=== PATIENT | male | born 1955 | race African-American/Black ===

== ENCOUNTER 2017-01-04 09:20 | Inpatient (IN) | payer OTHER ==
[~2017-01-04] VITALS: Ht 182.9 cm; Wt 76.7 kg
[2017-01-04] MEDS ORDERED: Midazolam 2mg/2ml Inj ONE (09:31)
--- NOTE | 2017-01-04 09:33 | Emergency Room Report ---
History of Present Illness General Chief Complaint: Chest Pain Source: Patient, Medical Record, EMS Present Illness HPI 61[facility]" and palpitations, HR >150. Patient himself denies chest pain, SOB, abd pain, palpitations. has no complaints. PMhx: seizures, chronic respiratory failure s/p trach, HO CVA s/p craniotony, ventriculosotomy, HTN CXR/from yesterday, 01/03 CXR with bibasilar atelectasis Labs, 11/23 No leuks. WBC 8 Allergies: Coded Allergies: No Known Allergies (Unverified , 01/04/17) Patient History Past Medical History: other - see hpi Past Surgical History: other - Trach/PEG, shunt Pertinent Family History: none Social History: Denies: alcohol use, drug use, smoking Immunizations: UTD Reviewed Nursing Documentation: PMH: Agreed, PSxH: Agreed Nursing Documentation-PMH Hx Cardiac Problems: Yes Hx Pacemaker: No - brain surgery Hx Neurological Problems: Yes Hx Cerebrovascular Accident: Yes Hx Seizures: Yes Review of Systems All Other Systems: negative except mentioned in HPI Physical Exam Vital Signs Date Time Temp Pulse Resp B/P Pulse Ox O2 Delivery O2 Flow Rate FiO2 01/04/17 09:12 99.5 151 20 118/80 98 Trach Collar 6.0 Sp02 EP Interpretation: reviewed, abnormal General Appearance: normal inspection, well appearing, no apparent distress, alert, GCS 15, non-toxic, Chronically Ill Head: normocephalic, atraumatic Eyes: bilateral eye EOMI, bilateral eye PERRL ENT: normal ENT inspection, hearing grossly normal, normal voice Neck: normal inspection, full range of motion, supple, no bony tend, other, tracheotomy - Trach in place; no air leak. No mucous plugs. Trach collar at baseline. 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 No response to electricity Converted to sinus tach after adenosine 6mg and 12mg Labs: Elevated Leuks 38K. Elevated LFTs. CXR: no obvious lobar PNA Will do CTAP to eval for tatum/appy CC time includes review of labs, significant amount of paperwork from SNF, d/w hospitalist Dr Marin Cardioversion Cardioversion: Consent: Emergent Indication: SVT Type: Synchonis Response: Sinus Attempts: One Patient Tolerated: Well Complications: None Medical Decision Making Diagnostic Impression: Primary Impression: Tachycardia Additional Impressions: SVT (supraventricular tachycardia) Sepsis Qualified Codes: A41.9 - Sepsis, unspecified organism Cholecystitis ER Course 1) SVT 160 Improved to sinus tach 120 after electrical cardioversion and adenosine X2 2) Sepsis Leuks 38K. Elevated LFTS Source? CXR no PNA CT with GB wall thickening, edema. ?stones Blood Cx pending Empiric Abx already given Endorsed to Dr Marin for KAY at 1244pm Consulted General Surgery at 1244pm as well EKG Diagnostic Results Rhythm: NSR ST Segments: no acute changes ASA given to the pt in ED: No Rhythm Strip Diag. Results EP Interpretation: yes Rate: 125 Rhythm: NSR, no PVC's, no ectopy Chest X-Ray Diagnostic Results EP Interpretation: Yes Findings: no consolidation, no effusion, no acute cardiopulmonary disease Number of Views: 1 Last Vital Signs Date Time Temp Pulse Resp B/P Pulse Ox O2 Delivery O2 Flow Rate FiO2 01/04/17 09:12 99.5 151 20 118/80 98 Trach Collar 6.0 Status: improved Disposition: ADMITTED INPATIENT Condition: Critical MARIAN LINCOLN M.D. Jan 04, 2017 09:33
[2017-01-04] MEDS ORDERED: Adenosine 6mg/2ml Inj ONE ×5 (09:41→10:01)
[2017-01-04] MEDS ORDERED: Midazolam 2mg/2ml Inj IVP ONE (09:45)
[2017-01-04 09:52] LABS: MEAN CORPUSCULAR HEMOGLOBIN 29.2 PG (27.0-31.0); MEAN CORPUSCULAR HGB CONC 32.8 G/DL (32.0-36.0); MEAN CORPUSCULAR VOLUME 89 FL (80-99); MEAN PLATELET VOLUME 8.2 FL (6.5-10.1); PLATELET COUNT 230 K/UL (150-450); RED BLOOD COUNT 4.89 M/UL (4.70-6.10)
[2017-01-04 10:07] LABS: TROPONIN I < 0.30 ng/mL (<=0.30)
[2017-01-04 10:09] LABS: ALANINE AMINOTRANSFERASE 180 U/L (3-41); ALBUMIN/GLOBULIN RATIO 0.5 (1.0-2.7); ANION GAP 17 (5-15); ASPARTATE AMINO TRANSFERASE 229 U/L (5-40); CALCIUM 10.1 mg/dL (8.6-10.2); CARBON DIOXIDE 27 mEQ/L (20-30); CHLORIDE 95 mEQ/L (98-107); CREATININE 1.1 mg/dL (0.7-1.2); GLOMERULAR FILTRATION RATE > 60 mL/min (>60); HEMOLYSIS 0; POTASSIUM 4.3 mEQ/L (3.4-4.9); SODIUM 139 mEQ/L (135-145); TOTAL PROTEIN 10.1 g/dL (6.6-8.7)
[2017-01-04 10:10] LABS: WHITE BLOOD COUNT 37.8 K/UL (4.8-10.8)
[2017-01-04] MEDS ORDERED: Adenosine 6mg/2ml Inj IVP ONE ×2 (10:15)
[2017-01-04 10:18] LABS: BAND NEUTROPHILS % (MANUAL) 1 % (0-8); BASOPHILS % (MANUAL) 0 % (0-2); EOSINOPHILS % (MANUAL) 0 % (0-3); LYMPHOCYTES % (MANUAL) 4 % (20-45); NEUTROPHILS % (MANUAL) 86 % (45-75); PLATELET ESTIMATE ADEQUATE; PLATELET MORPHOLOGY NORMAL; TOTAL CELLS COUNTED 100
[2017-01-04 10:19] LABS: CKMB < 1.5 ng/mL (< 6.7)
[2017-01-04] MEDS ORDERED: Zosyn 3.375gm inj ONE (10:25)
[2017-01-04 10:30] LABS: BILIRUBIN,DIRECT 3.9 mg/dL (0.1-0.3)
[2017-01-04] MEDS ORDERED: Vancomycin 1.5gm/D5W 300ml 325 ML IVPB ONE (10:30)
[2017-01-04] MEDS ORDERED: Piperacillin/Tazobactam 3.375 GM in NS 110 ML IVPB ONE (10:30)
[2017-01-04] MEDS ORDERED: AMBIEN5 MG ORAL (10:39)
[2017-01-04] MEDS ORDERED: ACETAMINOPHEN325 M1 GT (10:39)
[2017-01-04] MEDS ORDERED: BENADRYL A12.5 MG/5 GT (10:39)
[2017-01-04] MEDS ORDERED: ALBUTEROL2.5 MG/3 M INH (10:39)
[2017-01-04] MEDS ORDERED: OMEPRAZOLE40 M1 GT (10:39)
[2017-01-04] MEDS ORDERED: VITAMIN C500 M1 GT ×2 (10:41→17:33)
[2017-01-04] MEDS ORDERED: COLACE100 MG GT (10:41)
--- NOTE | 2017-01-04 11:11 | Diagnostic Imaging Report ---
Indications: Chest pain Technique: Portable AP chest Findings: Comparison: None Tracheostomy tube in place. Defibrillator patch overlies lower left hemithorax. Linear density right lung base. Left lung clear. Heart size, pulmonary vasculature within normal limits. Aortic arch calcified and mildly elongated. Otherwise, no abnormal mediastinal widening. No pleural abnormality. Fixation hardware right side of mandible. No acute Focal skeletal abnormality identified. IMPRESSION: Subsegmental atelectasis right lung base No other evidence of acute cardiopulmonary disease Aortosclerosis Tracheostomy Prior ORIF right mandible
[2017-01-04 11:55] VITALS: BP 118/80
--- NOTE | 2017-01-04 12:52 | Diagnostic Imaging Report ---
Indications: Abdominal pain Technique: Continuous helical CT imaging of the abdomen and pelvis was performed with automatic exposure control following administration of oral contrast administered via percutaneous gastrostomy tube and intravenous nonionic iodine contrast, on a Siemens sensation [address] scanner. Axial, coronal, and sagittal images were reconstructed at 5 mm slice thickness. CTDI volume(s): 17 mGy Total DLP: 895 mGy-cm Findings: Comparison: None Oral contrast is passed throughout the gastrointestinal tract to the level of the ascending colon. Percutaneous gastrostomy tube in stomach. Stomach, small bowel nondilated. Appendix unremarkable. Right-sided colon moderately distended without abrupt transition. Remainder of colon nondistended. Multiple air-fluid levels throughout colon. Segment of distal descending/proximal sigmoid colon collapsed, limiting evaluation. And rectum mildly distended by feces. No obvious mural thickening, adjacent inflammatory stranding, extraluminal gas or fluid collections are demonstrated. The gallbladder is distended and demonstrates mural thickening/edema. Small nodular foci of increased attenuation are present along or adjacent to the gallbladder wall near its base. Extra mural fluid versus intramural edema fundus. Bile pancreatic ducts not dilated. Multiple small nodular calcifications in the spleen. Circumscribed low-attenuation foci in both renal cortices. Scattered arterial mural calcifications without obvious flow-limiting stenosis or occlusion. Diffuse mural thickening of urinary bladder. Prostate, seminal vesicles absent. Multiple surgical clips in pelvis. Remainder visualized pelvic anatomy demonstrates no other obvious acute abnormality. Irregular pleural-based linear and patchy consolidative opacities in the dependent portions both lung bases, right greater than left. Disc space narrowing with marginal osteophyte formation, vacuum phenomenon lower lumbar spine. IMPRESSION: Unremarkable appendix--no evidence of acute appendicitis Multiple colonic air-fluid levels with proximal distention compatible with diarrhea. Consider underlying enteritis. No evidence of overt colitis. Distended gallbladder with apparent mural thickening, possible adjacent fluid. Cholecystitis must be considered. Small nodular foci along gallbladder wall may represent small intraluminal stones, polyps, or hyperplastic cholecystosis. Ultrasound recommended for further evaluation. Diffuse thickening of urinary bladder wall--underdistention versus hypertrophy or cystitis Previous radical prostatectomy Splenic old granulomatous disease Bilateral renal cortical cysts Arteriosclerosis Degenerative spondylosis Pulmonary bibasal subsegmental atelectasis. Superimposed focal pneumonia, particularly in the right lung base, cannot be excluded.
[2017-01-04] MEDS ORDERED: Morphine Sulfate 2mg/ml Inj IVP ONE (13:15)
--- NOTE | 2017-01-04 16:23 | Diagnostic Imaging Report ---
Indications: Abdominal pain, elevated liver function tests abnormal gallbladder on CT scan, leukocytosis of 30,000, Technique: 6.1 mCi 99 M technetium-Choletec were administered intravenously. Immediate serial planar imaging of the abdomen was performed in anterior projection for a duration of 60 minutes. Findings: Comparison: CT abdomen pelvis earlier today Hepatic parenchymal uptake of radiotracer is prompt and homogeneous. There is no discernible excretion of radioisotope into the bile ducts for 60 minutes. IMPRESSION: Findings compatible with acute hepatocellular failure versus acute bile duct obstruction. As there is no evidence of the latter are poorly CT scan, the former is highly favored.. Examination nondiagnostic for cystic duct obstruction/cholecystitis. Findings discussed with Dr. Hameed, consulting surgeon, by telephone at time of this dictation
[2017-01-04 17:00] VITALS: BP 140/82
[2017-01-04] MEDS ORDERED: Acetaminophen 650mg/20.3ml GT PRN (17:15)
[2017-01-04] MEDS ORDERED: Mylanta II UD 30ml ORAL PRN (17:15)
[2017-01-04] MEDS ORDERED: DULCOLAX10 MG RC (17:25)
[2017-01-04] MEDS ORDERED: KEPPRA LIQ100 MG/1 M GT (17:26)
[2017-01-04] MEDS ORDERED: OMEPRAZOLE10 M1 GT (17:30)
[2017-01-04] MEDS ORDERED: PROMOD946 ML GT (17:32)
[2017-01-04] MEDS ORDERED: ZINC50 M1 GT (17:35)
--- NOTE | 2017-01-04 17:42 | General Progress Note ---
Progress Note Progress Note pt seen and examined, ct, us, hida reviewed with radiologist. 61 yo AA gentleman admitted with leukocytosis and jaundice. CT showed distdended gallbladder with somewhat thcickened stones. No ducrtal dilatation or pericholeckystic fluid HIDA showed kuptake in lever but no excretion into the bile ducts strongly suggesting liver parenchymal disease rather that acute cholecystitis. US show Vd stones and sludge. pt statu post tracheostomy, not on vent. awake alert, responding appropriately NAD ABD soft, no gurading rebound. negative Guevara's sign. G tube in place Labs Test 01/04/17 09:28 White Blood Count 37.8 K/UL (4.8-10.8) Red Blood Count 4.89 M/UL (4.70-6.10) Hemoglobin 14.3 G/DL (14.2-18.0) Hematocrit 43.5 % (42.0-52.0) Mean Corpuscular Volume 89 FL (80-99) Mean Corpuscular Hemoglobin 29.2 PG (27.0-31.0) Mean Corpuscular Hemoglobin Concent 32.8 G/DL (32.0-36.0) Red Cell Distribution Width 13.0 % (11.6-14.8) Platelet Count 230 K/UL (150-450) Mean Platelet Volume 8.2 FL (6.5-10.1) Neutrophils (%) (Auto) % (45.0-75.0) Lymphocytes (%) (Auto) % (20.0-45.0) Monocytes (%) (Auto) % (1.0-10.0) Eosinophils (%) (Auto) % (0.0-3.0) Basophils (%) (Auto) % (0.0-2.0) Differential Total Cells Counted 100 Neutrophils % (Manual) 86 % (45-75) Lymphocytes % (Manual) 4 % (20-45) Monocytes % (Manual) 9 % (1-10) Eosinophils % (Manual) 0 % (0-3) Basophils % (Manual) 0 % (0-2) Band Neutrophils 1 % (0-8) Platelet Estimate Adequate Platelet Morphology Normal Red Blood Cell Morphology Normal Sodium Level 139 mEQ/L (135-145) Potassium Level 4.3 mEQ/L (3.4-4.9) Chloride Level 95 mEQ/L (98-107) Carbon Dioxide Level 27 mEQ/L (20-30) Anion Gap 17 (5-15) Blood Urea Nitrogen 23 mg/dL (7-23) Creatinine 1.1 mg/dL (0.7-1.2) Estimat Glomerular Filtration Rate > 60 mL/min (>60) Glucose Level 158 mg/dL (74-106) Calcium Level 10.1 mg/dL (8.6-10.2) Total Bilirubin 4.6 mg/dL (0.0-1.2) Direct Bilirubin 3.9 mg/dL (0.1-0.3) Aspartate Amino Transf (AST/SGOT) 229 U/L (5-40) Alanine Aminotransferase (ALT/SGPT) 180 U/L (3-41) Alkaline Phosphatase 205 U/L (40-129) Total Creatine Kinase 42 U/L (38-174) Creatine Kinase MB < 1.5 ng/mL (< 6.7) Creatine Kinase MB Relative Index Troponin I < 0.30 ng/mL (<=0.30) Total Protein 10.1 g/dL (6.6-8.7) Albumin 3.7 g/dL (3.5-5.2) Globulin 6.4 g/dL Albumin/Globulin Ratio 0.5 (1.0-2.7) At this point problem appears to be primarily a problen with the liver rather thatn gall bladder disease. Rec GI consult IV antibioticsa repeat labs incl lfts keep NPo will follow closely message left to FRANCK Ness Jan 04, 2017 17:42
[2017-01-04] MEDS ORDERED: Zolpidem 5mg tab ORAL PRN (17:45)
[2017-01-04] MEDS ORDERED: DiphenhydrAMINE 25mg/10ml Elixir GT PRN (17:45)
[2017-01-04] MEDS ORDERED: Albuterol ud Inhalation HHN PRN (17:45)
[2017-01-04 20:57] VITALS: BP 99/44
[2017-01-04] MEDS: levETIRAcetam 500mg/5ml Liquid GT SCH (21:50)
[2017-01-04] MEDS: Piperacillin/Tazobactam 3.375 GM in D5W 110 ML IVPB SCH (21:51)
[2017-01-04] MEDS: Heparin 5000 units/ml inj SUBQ SCH (21:53)
[2017-01-04] MEDS: Vancomycin 1250mg/D5W 275ml IVPB SCH ×2 (23:04)
[2017-01-05] VITALS: BP 90/64
[2017-01-05 04:00] VITALS: BP 101/67
[2017-01-05 05:19] LABS: MEAN CORPUSCULAR HEMOGLOBIN 30.1 PG (27.0-31.0); MEAN CORPUSCULAR HGB CONC 33.8 G/DL (32.0-36.0); MEAN CORPUSCULAR VOLUME 89 FL (80-99); MEAN PLATELET VOLUME 8.1 FL (6.5-10.1); PLATELET COUNT 152 K/UL (150-450); RED BLOOD COUNT 3.94 M/UL (4.70-6.10); RED CELL DISTRIBUTION WIDTH 12.9 % (11.6-14.8)
[2017-01-05 05:33] LABS: WHITE BLOOD COUNT 27.3 K/UL (4.8-10.8)
[2017-01-05 05:41] LABS: TROPONIN I < 0.30 ng/mL (<=0.30)
[2017-01-05 05:42] LABS: ALANINE AMINOTRANSFERASE 96 U/L (3-41); ALBUMIN/GLOBULIN RATIO 0.6 (1.0-2.7); ANION GAP 13 (5-15); ASPARTATE AMINO TRANSFERASE 103 U/L (5-40); CARBON DIOXIDE 27 mEQ/L (20-30); CHLORIDE 99 mEQ/L (98-107); GLOMERULAR FILTRATION RATE > 60 mL/min (>60); HEMOLYSIS 0; POTASSIUM 3.5 mEQ/L (3.4-4.9); SODIUM 139 mEQ/L (135-145); TOTAL PROTEIN 7.4 g/dL (6.6-8.7)
[2017-01-05 05:43] LABS: INR 1.3 (0.9-1.1); PROTHROMBIN TIME 13.8 SEC (9.30-11.50)
[2017-01-05 06:25] LABS: BILIRUBIN,DIRECT 6.7 mg/dL (0.1-0.3)
[2017-01-05] MEDS: Piperacillin/Tazobactam 3.375 GM in D5W 110 ML IVPB SCH ×3 (06:26→21:30)
[2017-01-05 08:00] VITALS: BP 102/61
--- NOTE | 2017-01-05 08:10 | General Progress Note ---
Progress Note Progress Note Pt seen yesterday for eval of abdominal pain. Imaging studies showed distended gallbladder on CT but no ductal dilatation or pericholecystic fluid. Ultrasound did confirm sludge and stones (verbal report by raadiologist.) Hida scan showed radioactive dye uptake into liver but no excretion into duct, most consistant with hepatocellular disease. Pt today is awake alert. He is nonverbal 2o to trach but nods, and shakes his head appropriately. has some diffuse abd pain, not localizing. he is passing flatus and has had a bm this AM Vital Sign - Last 24 Hours 01/04/17 01/04/17 01/04/17 01/04/17 09:12 10:16 10:17 11:54 Temp 99.5 Pulse 151 132 125 125 Resp 20 20 B/P 118/80 Pulse Ox 98 O2 Delivery Trach Collar Trach Collar O2 Flow Rate 6.0 6.0 01/04/17 01/04/17 01/04/17 01/04/17 11:55 13:57 17:00 17:00 Temp 97.4 Resp 20 24 B/P 118/80 125/80 Pulse Ox 98 100 97 O2 Delivery Trach Collar Trach Collar Trach Collar Trach Collar O2 Flow Rate 6.0 10.0 FiO2 45 45 01/04/17 01/04/17 01/04/17 01/04/17 17:00 17:47 18:19 19:06 Temp 102.0 99.5 Pulse 135 Resp 20 B/P 140/82 140/82 Pulse Ox 98 100 O2 Delivery Trach Collar T-piece FiO2 45 45 01/04/17 01/04/17 01/04/17 01/04/17 19:06 20:00 20:57 23:16 Temp 98.6 Pulse 110 93 Resp 20 B/P 99/44 90/57 Pulse Ox 97 O2 Delivery T-piece T-piece O2 Flow Rate 10.0 FiO2 45 35 35 01/04/17 01/05/17 01/05/17 01/05/17 23:36 00:00 00:00 00:00 Temp 98.0 Pulse 97 96 91 Resp 18 B/P 90/64 Pulse Ox 100 O2 Delivery T-piece FiO2 35 35 01/05/17 01/05/17 01/05/17 01/05/17 00:50 00:50 04:00 04:00 Temp 99.3 Pulse 103 105 Resp 20 B/P 101/67 Pulse Ox 100 100 O2 Delivery T-piece T-piece T-piece O2 Flow Rate 10.0 FiO2 45 45 35 01/05/17 01/05/17 01/05/17 06:30 07:08 07:09 Pulse 105 B/P 101/67 Pulse Ox 100 O2 Delivery T-piece T-piece O2 Flow Rate 10.0 FiO2 35 35 Intake and Output 01/04/17 01/04/17 01/05/17 15:00 23:00 07:00 Intake Total 327.5 ml 1222.500 ml Output Total 20 ml 400 ml Balance -20 ml 327.5 ml 822.500 ml Labs Test 01/04/17 09:28 01/05/17 04:30 White Blood Count 37.8 K/UL (4.8-10.8) 27.3 K/UL (4.8-10.8) Red Blood Count 4.89 M/UL (4.70-6.10) 3.94 M/UL (4.70-6.10) Hemoglobin 14.3 G/DL (14.2-18.0) 11.8 G/DL (14.2-18.0) Hematocrit 43.5 % (42.0-52.0) 35.0 % (42.0-52.0) Mean Corpuscular Volume 89 FL (80-99) 89 FL (80-99) Mean Corpuscular Hemoglobin 29.2 PG (27.0-31.0) 30.1 PG (27.0-31.0) Mean Corpuscular Hemoglobin Concent 32.8 G/DL (32.0-36.0) 33.8 G/DL (32.0-36.0) Red Cell Distribution Width 13.0 % (11.6-14.8) 12.9 % (11.6-14.8) Platelet Count 230 K/UL (150-450) 152 K/UL (150-450) Mean Platelet Volume 8.2 FL (6.5-10.1) 8.1 FL (6.5-10.1) Neutrophils (%) (Auto) % (45.0-75.0) % (45.0-75.0) Lymphocytes (%) (Auto) % (20.0-45.0) % (20.0-45.0) Monocytes (%) (Auto) % (1.0-10.0) % (1.0-10.0) Eosinophils (%) (Auto) % (0.0-3.0) % (0.0-3.0) Basophils (%) (Auto) % (0.0-2.0) % (0.0-2.0) Differential Total Cells Counted 100 Neutrophils % (Manual) 86 % (45-75) Lymphocytes % (Manual) 4 % (20-45) Monocytes % (Manual) 9 % (1-10) Eosinophils % (Manual) 0 % (0-3) Basophils % (Manual) 0 % (0-2) Band Neutrophils 1 % (0-8) Platelet Estimate Adequate Platelet Morphology Normal Red Blood Cell Morphology Normal Sodium Level 139 mEQ/L (135-145) 139 mEQ/L (135-145) Potassium Level 4.3 mEQ/L (3.4-4.9) 3.5 mEQ/L (3.4-4.9) Chloride Level 95 mEQ/L (98-107) 99 mEQ/L (98-107) Carbon Dioxide Level 27 mEQ/L (20-30) 27 mEQ/L (20-30) Anion Gap 17 (5-15) 13 (5-15) Blood Urea Nitrogen 23 mg/dL (7-23) 20 mg/dL (7-23) Creatinine 1.1 mg/dL (0.7-1.2) 1.0 mg/dL (0.7-1.2) Estimat Glomerular Filtration Rate > 60 mL/min (>60) > 60 mL/min (>60) Glucose Level 158 mg/dL (74-106) 110 mg/dL (74-106) Calcium Level 10.1 mg/dL (8.6-10.2) 9.0 mg/dL (8.6-10.2) Total Bilirubin 4.6 mg/dL (0.0-1.2) 7.7 mg/dL (0.0-1.2) Direct Bilirubin 3.9 mg/dL (0.1-0.3) 6.7 mg/dL (0.1-0.3) Aspartate Amino Transf (AST/SGOT) 229 U/L (5-40) 103 U/L (5-40) Alanine Aminotransferase (ALT/SGPT) 180 U/L (3-41) 96 U/L (3-41) Alkaline Phosphatase 205 U/L (40-129) 155 U/L (40-129) Total Creatine Kinase 42 U/L (38-174) Creatine Kinase MB < 1.5 ng/mL (< 6.7) Creatine Kinase MB Relative Index Troponin I < 0.30 ng/mL (<=0.30) < 0.30 ng/mL (<=0.30) Total Protein 10.1 g/dL (6.6-8.7) 7.4 g/dL (6.6-8.7) Albumin 3.7 g/dL (3.5-5.2) 3.0 g/dL (3.5-5.2) Globulin 6.4 g/dL 4.4 g/dL Albumin/Globulin Ratio 0.5 (1.0-2.7) 0.6 (1.0-2.7) Prothrombin Time 13.8 SEC (9.30-11.50) Prothromb Time International Ratio 1.3 (0.9-1.1) impression Findings most consistant with acute liver injury. DOUBT acute cholecystitis. plan await GI evaluation serial labs and exams FRANCK FONTANEZ Jan 05, 2017 08:10
[2017-01-05] MEDS: levETIRAcetam 500mg/5ml Liquid GT SCH ×2 (08:25→21:28)
[2017-01-05] MEDS: Docusate 100mg tablet GT SCH (08:25)
[2017-01-05] MEDS: Ascorbic Acid 500mg tab GT SCH (08:25)
[2017-01-05] MEDS: Zinc Sulfate 220mg cap GT SCH (08:25)
[2017-01-05] MEDS: Heparin 5000 units/ml inj SUBQ SCH ×2 (08:26→21:29)
[2017-01-05 08:54] LABS: BAND NEUTROPHILS % (MANUAL) 0 % (0-8); BASOPHILS % (MANUAL) 0 % (0-2); EOSINOPHILS % (MANUAL) 0 % (0-3); LYMPHOCYTES % (MANUAL) 5 % (20-45); NEUTROPHILS % (MANUAL) 83 % (45-75); PLATELET ESTIMATE ADEQUATE; TOTAL CELLS COUNTED 100
[2017-01-05 08:55] LABS: HYPOCHROMASIA 1+; PLATELET MORPHOLOGY NORMAL
[2017-01-05 09:55] LABS: OTHERS PATHOLOGIST COMMENT
[2017-01-05] MEDS: Vancomycin 1250mg/D5W 275ml IVPB SCH ×4 (11:20→23:00)
[2017-01-05 12:00] VITALS: BP 105/69
--- NOTE | 2017-01-05 15:09 | General Progress Note ---
Assessment/Plan Assessment/Plan Assessment - Leukocytosis, Jaundice -- ? cholecystitis vs, cholangitis, less likely hepatocellular disease - Resp failure Recommendations - check hepatitis serologies - check MRCP - check CMV/HSV/ EBV - abx - follow LFT - hold ASA and Ambien - close surgical f/u Subjective Allergies: Coded Allergies: No Known Allergies (Unverified , 01/04/17) Objective Last 24 Hour Vital Signs Date Time Temp Pulse Resp B/P Pulse Ox O2 Delivery O2 Flow Rate FiO2 01/05/17 12:59 T-piece 10.0 35 01/05/17 12:58 100 T-piece 35 01/05/17 12:00 98.1 90 20 105/69 99 T-piece 10.0 35 01/05/17 12:00 90 01/05/17 11:23 90 105/65 01/05/17 08:00 96 01/05/17 08:00 98.2 92 16 102/61 99 T-piece 10.0 35 01/05/17 07:09 T-piece 10.0 35 01/05/17 07:08 100 T-piece 35 01/05/17 06:30 105 101/67 01/05/17 04:00 99.3 105 20 101/67 100 T-piece 35 01/05/17 04:00 103 01/05/17 00:50 T-piece 10.0 45 01/05/17 00:50 100 T-piece 45 01/05/17 00:00 91 01/05/17 00:00 98.0 96 18 90/64 100 T-piece 35 01/05/17 00:00 35 01/04/17 23:36 97 01/04/17 23:16 93 90/57 01/04/17 20:57 98.6 110 20 99/44 97 T-piece 35 01/04/17 20:00 35 01/04/17 19:06 T-piece 10.0 45 01/04/17 19:06 100 T-piece 45 01/04/17 18:19 99.5 01/04/17 17:47 135 140/82 01/04/17 17:00 102.0 20 140/82 98 Trach Collar 45 01/04/17 17:00 97 Trach Collar 45 01/04/17 17:00 Trach Collar 10.0 45 Intake and Output 01/04/17 01/05/17 19:00 07:00 Intake Total 1550.000 ml Output Total 20 ml 400 ml Balance -20 ml 1150.000 ml Intake Oral 100 ml IV Total 1450.000 ml Output Urine Total 20 ml 400 ml # Bowel Movements 1 2 Laboratory Tests 01/05/17 04:30: White Blood Count 27.3*H, Red Blood Count 3.94L, Hemoglobin 11.8L, Hematocrit 35.0L, Mean Corpuscular Volume 89, Mean Corpuscular Hemoglobin 30.1, Mean Corpuscular Hemoglobin Concent 33.8, Red Cell Distribution Width 12.9, Platelet Count 152, Mean Platelet Volume 8.1, Neutrophils (%) (Auto) , Lymphocytes (%) ( Auto) , Monocytes (%) (Auto) , Eosinophils (%) (Auto) , Basophils (%) (Auto) , Differential Total Cells Counted 100, Neutrophils % (Manual) 83H, Lymphocytes % (Manual) 5L, Monocytes % (Manual) 12H, Eosinophils % (Manual) 0, Basophils % ( Manual) 0, Band Neutrophils 0, Platelet Estimate Adequate, Platelet Morphology Normal, Hypochromasia 1+, Prothrombin Time 13.8H, Prothromb Time International Ratio 1.3H, Sodium Level 139, Potassium Level 3.5, Chloride Level 99, Carbon Dioxide Level 27, Anion Gap 13, Blood Urea Nitrogen 20, Creatinine 1.0, Estimat Glomerular Filtration Rate > 60, Glucose Level 110H, Calcium Level 9.0, Total Bilirubin 7.7H, Direct Bilirubin 6.7H, Aspartate Amino Transf (AST/SGOT) 103H, Alanine Aminotransferase (ALT/SGPT) 96H, Alkaline Phosphatase 155H, Troponin I < 0.30, Total Protein 7.4, Albumin 3.0L, Globulin 4.4, Albumin/Globulin Ratio 0.6L Height (Feet): 6 Weight (Pounds): 169 ANNIE MATHUR Jan 05, 2017 15:09
[2017-01-05 16:00] VITALS: BP 119/74
[2017-01-05 20:32] VITALS: BP 133/72
--- NOTE | 2017-01-05 21:58 | History and Physical Report ---
DATE OF ADMISSION: 01/04/2017 REASON FOR ADMISSION: Diverticulitis, possible intrabdominal sepsis. HISTORY OF PRESENT ILLNESS: The patient is a 61-year-old male brought in with significant palpitations. The patient was seen and evaluated. He is in the emergency room and noted to have sepsis and supraventricular tachycardia. The patient also felt to have possibility of cholecystitis. The patient was seen by general surgery and is to be seen by gastroenterology. The patient is currently NPO. The patient's findings discussed and reviewed. The patient was unable to give much in the way of history. PAST MEDICAL HISTORY: Notable for seizures, chronic respiratory failure, tracheostomy, history of CVA, history of craniotomy, history of ventriculostomy, history of hypertension. PAST SURGICAL HISTORY: Notable for craniotomy, tracheostomy, G-tube. MEDICATIONS: Noted. ALLERGIES: Noted. SOCIAL HISTORY: Resides in [facility]. Nonsmoker and nondrinker. PHYSICAL EXAMINATION: GENERAL: The patient is a well-developed male, chronically ill. VITAL SIGNS: Currently stable. The patient is on TPN and off the ventilator. NECK: Supple LUNGS: With coarse breath sounds. CARDIAC: S1 and S2, irregular rate and rhythm. ABDOMEN: Mild tenderness. LABORATORY AND DIAGNOSTIC DATA: Lab data reviewed. White cell count 27.3, hemoglobin 11.8, hematocrit 35. Chemistries noted and reviewed. Liver enzymes are elevated. CAT scan noted. HIDA scan noted. IMPRESSION: 1. Cholecystitis. 2. Elevated liver enzymes. 3. Hepatopathy. 4. Possible cystitis. 5. Sepsis. 6. Tachyarrhythmias. RECOMMENDATIONS: 1. Supportive care. 2. At present, keep the patient NPO. 3. IV antibiotics . 4. ID evaluation. 5. GI evaluation 6. General surgery following. 7. Deep venous thrombosis prophylaxis. 8. IV hydration. 9. Monitor clinically for change. 10. Seizure precautions and seizures medications as outlined. Clifton Marin M.D. DR: Eldon JOB#: [id number] CC: CATHERINE
[2017-01-06] VITALS: BP 134/74
--- NOTE | 2017-01-06 00:28 | Consultation ---
DATE OF CONSULTATION: 01/05/2017 GASTROENTEROLOGY CONSULTATION REPORT: CHIEF COMPLAINT: I was asked to see this patient by Dr. Clifton Marin for evaluation of abnormal liver tests. HISTORY OF PRESENT ILLNESS: The patient is a very debilitated 61-year-old male with chronic tracheostomy and gastrostomy. Patient comes in to the hospital with leukocytosis and abnormal liver tests. The patient is unable to provide any history. Most of the information is only available from the chart. The patient has some abdominal pain on presentation. At this point, he appears confused and could not get much information even with the head nodding. Patient has imaging with CT of the abdomen and pelvis as well as ultrasound. There are some larger stones seen and some thickening of the gallbladder wall. They are suggestion of cholecystitis was made. The patient has markedly elevated white count and elevated transaminase as well as . PAST MEDICAL HISTORY: History of respiratory failure status post tracheostomy, dysphagia status post gastrostomy, reactive airway disease, seizure disorder, gastroesophageal reflux, and history of supraventricular tachycardia. SOCIAL HISTORY: Unobtainable. FAMILY HISTORY: Unavailable. REVIEW OF SYSTEMS: Unobtainable. PHYSICAL EXAMINATION: GENERAL: The patient is a debilitated man seen in his room. HEENT: Normocephalic and atraumatic. Tracheostomy catheter in the neck. CHEST: Reveals coarse breath sounds. CARDIOVASCULAR: Revealed regular rate. ABDOMEN: Soft with gastrostomy tube. There is some tenderness in the epigastric area without guarding or rebound. EXTREMITIES: Revealed no edema. ASSESSMENT: This patient's condition presents with marked leukocytosis and markedly elevated liver tests which are concerning. The differential diagnosis most probably includes acute cholecystitis given that he had some imaging studies. Alternatively, the patient may also have cholangitis, although there is no clear imaging studies. Liver failure or acute hepatitis or liver pathologies will be another consideration although usually these are not with severe leukocytosis. The patient should be followed very closely by surgical staff. We will order MRCP examination to look at the bile ducts to see if there is any stone or other obstructing process. At this time, the patient received broad-spectrum antibiotics. We will also evaluate the patient for anemia clinically and ____ bile ____ most likely phenomenon. The patient's condition is guarded and should be observed very closely. RECOMMENDATIONS: Per above discussion and per orders written in the chart. Thank you for asking me to participate in care this patient. Mary Anne Ruiz M.D. DR: Aleksey JOB#: [id number] CC:
[2017-01-06 04:00] VITALS: BP 146/71
[2017-01-06] MEDS: Piperacillin/Tazobactam 3.375 GM in D5W 110 ML IVPB SCH ×3 (05:17→21:32)
[2017-01-06 05:48] LABS: BASOPHILS % (AUTO) 0.6 % (0.0-2.0); EOSINOPHILS % (AUTO) 2.8 % (0.0-3.0); LYMPHOCYTES % (AUTO) 10.5 % (20.0-45.0); MEAN CORPUSCULAR HEMOGLOBIN 30.1 PG (27.0-31.0); MEAN CORPUSCULAR HGB CONC 33.6 G/DL (32.0-36.0); MEAN CORPUSCULAR VOLUME 90 FL (80-99); MEAN PLATELET VOLUME 7.8 FL (6.5-10.1); NEUTROPHILS % (AUTO) 69.1 % (45.0-75.0); PLATELET COUNT 155 K/UL (150-450); RED BLOOD COUNT 3.75 M/UL (4.70-6.10); RED CELL DISTRIBUTION WIDTH 13.1 % (11.6-14.8); WHITE BLOOD COUNT 9.9 K/UL (4.8-10.8)
[2017-01-06 06:10] LABS: ALANINE AMINOTRANSFERASE 63 U/L (3-41); ALBUMIN/GLOBULIN RATIO 0.5 (1.0-2.7); ANION GAP 15 (5-15); ASPARTATE AMINO TRANSFERASE 55 U/L (5-40); CALCIUM 9.3 mg/dL (8.6-10.2); CARBON DIOXIDE 26 mEQ/L (20-30); CHLORIDE 98 mEQ/L (98-107); CREATININE 0.8 mg/dL (0.7-1.2); GLOMERULAR FILTRATION RATE > 60 mL/min (>60); HEMOLYSIS 2; POTASSIUM 3.4 mEQ/L (3.4-4.9); SODIUM 139 mEQ/L (135-145)
[2017-01-06 06:12] LABS: INR 1.2 (0.9-1.1); PROTHROMBIN TIME 12.1 SEC (9.30-11.50)
[2017-01-06 08:00] VITALS: BP 111/71
[2017-01-06] MEDS: levETIRAcetam 500mg/5ml Liquid GT SCH ×2 (08:32→20:39)
[2017-01-06] MEDS: Docusate 100mg tablet GT SCH (08:32)
[2017-01-06] MEDS: Ascorbic Acid 500mg tab GT SCH (08:32)
[2017-01-06] MEDS: Zinc Sulfate 220mg cap GT SCH (08:32)
[2017-01-06] MEDS: Heparin 5000 units/ml inj SUBQ SCH ×2 (08:33→20:40)
--- NOTE | 2017-01-06 10:30 | General Progress Note ---
Assessment/Plan Assessment/Plan IMPRESSION: 1. Cholecystitis. 2. Elevated liver enzymes. 3. Hepatopathy. 4. Possible cystitis. 5. Sepsis. 6. Tachyarrhythmia 7. bacteremia 8. elevated bilirubin PLAN NPO GI follow up IV hydration iv antibiotics care noted and reviewed impression, plan, and exam edited and reviewed in detail care discussed with RN Subjective Allergies: Coded Allergies: No Known Allergies (Unverified , 01/04/17) Subjective jaundice poor LOC Objective Last 24 Hour Vital Signs Date Time Temp Pulse Resp B/P Pulse Ox O2 Delivery O2 Flow Rate FiO2 01/06/17 08:00 81 01/06/17 08:00 97.0 76 18 111/71 97 T-piece 12.0 35 01/06/17 07:06 T-piece 10.0 35 01/06/17 07:06 99 T-piece 35 01/06/17 06:19 75 146/71 01/06/17 04:00 75 01/06/17 04:00 98.0 75 20 146/71 99 T-piece 35 01/06/17 00:55 T-piece 10.0 35 01/06/17 00:55 99 T-piece 35 01/06/17 00:46 79 134/74 01/06/17 00:00 75 01/06/17 00:00 98.6 79 20 134/74 95 T-piece 01/05/17 20:32 98.4 83 20 133/72 94 T-piece 01/05/17 20:00 83 01/05/17 18:40 T-piece 10.0 35 01/05/17 18:40 97 T-piece 35 01/05/17 17:55 83 117/77 01/05/17 16:00 90 01/05/17 16:00 98.2 87 20 119/74 98 T-piece 10.0 35 01/05/17 12:59 T-piece 10.0 35 01/05/17 12:58 100 T-piece 35 01/05/17 12:00 98.1 90 20 105/69 99 T-piece 10.0 35 01/05/17 12:00 90 01/05/17 11:23 90 105/65 Intake and Output 01/05/17 01/06/17 19:00 07:00 Intake Total 865.000 ml 1754.500 ml Output Total 200 ml 2000 ml Balance 665.000 ml -245.500 ml Intake Oral 200 ml IV Total 865.000 ml 1554.500 ml Output Urine Total 200 ml 2000 ml # Voids 4 # Bowel Movements 2 Laboratory Tests 01/06/17 05:05: White Blood Count 9.9#, Red Blood Count 3.75L, Hemoglobin 11.3L, Hematocrit 33.6L, Mean Corpuscular Volume 90, Mean Corpuscular Hemoglobin 30.1, Mean Corpuscular Hemoglobin Concent 33.6, Red Cell Distribution Width 13.1, Platelet Count 155, Mean Platelet Volume 7.8, Neutrophils (%) (Auto) 69.1, Lymphocytes (% ) (Auto) 10.5L, Monocytes (%) (Auto) 17.0H, Eosinophils (%) (Auto) 2.8, Basophils (%) (Auto) 0.6, Prothrombin Time 12.1H, Prothromb Time International Ratio 1.2H, Sodium Level 139, Potassium Level 3.4, Chloride Level 98, Carbon Dioxide Level 26, Anion Gap 15, Blood Urea Nitrogen 11, Creatinine 0.8, Estimat Glomerular Filtration Rate > 60, Glucose Level 85, Calcium Level 9.3, Total Bilirubin 9.9H, Direct Bilirubin 8.0H, Aspartate Amino Transf (AST/SGOT) 55H, Alanine Aminotransferase (ALT/SGPT) 63H, Alkaline Phosphatase 132H, Total Protein 7.0, Albumin 2.6L, Globulin 4.4, Albumin/Globulin Ratio 0.5L, Cytomegalovirus DNA Qual (PCR) [Pending], Hepatitis A IgM Antibody [Pending], Hepatitis B Surface Antigen [Pending], Hepatitis B Core IgM Antibody [Pending], Hepatitis C Antibody [Pending], Herpes Simplex Virus I IgM Ab (IFA) [Pending], Herpes Simplex Virus II IgM Ab (IFA [Pending], Monoscreen [Pending] Height (Feet): 6 Weight (Pounds): 169 Objective PHYSICAL EXAMINATION: GENERAL: The patient is a well-developed male, chronically ill. NECK: Supple LUNGS: With coarse breath sounds. CARDIAC: S1 and S2, irregular rate and rhythm. ABDOMEN: Mild tenderness. some edema jaundice CYNTHIA PERDOMO Jan 06, 2017 10:30
[2017-01-06] MEDS ORDERED: Tubing IV Secondary IV ONE (10:48)
[2017-01-06] MEDS ORDERED: NS 275ml ONE (10:48)
[2017-01-06 12:00] VITALS: BP 112/73
--- NOTE | 2017-01-06 13:07 | Consultation ---
DATE OF CONSULTATION: INFECTIOUS DISEASE CONSULTATION: This consult is for coverage of Dr. Cabello. PRIMARY ATTENDING PHYSICIAN: Clifton Marin M.D. REASON FOR CONSULT: Gram-negative sepsis. HISTORY OF PRESENT ILLNESS: The patient is a 61-year-old male who is a prison resident admitted on 01/04/2017 because of palpitation. He was found to have supraventricular tachycardia. He had abnormal LFT with bilirubin of 4.6 that subsequently went up to 9.9. He had a leukocytosis of 37.8 at the time of admission then become normalized today. He had fever of 102 degrees on the day of admission. PAST MEDICAL HISTORY: Significant for hypertension, chronic respiratory failure, the patient is a status post tracheostomy, status post craniotomy and tracheostomy . He had G-tube feeding. He has CVA and right sided hemiplegia, and seizure disorder. MEDICATIONS: Protonix, vitamin C, Colace, zinc, vancomycin, Zosyn, Keppra, heparin, albuterol , diphenhydramine, and Mylanta. ALLERGIES: No known drug allergies. SOCIAL HISTORY: [facility] resident, nonsmoker, nondrinker. The patient had a limited communication. He seems to be alert. PHYSICAL EXAMINATION: VITAL SIGNS: Temperature 98 degrees, pulse 75, and blood pressure 146/71. GENERAL APPEARANCE: No acute distress. HEAD AND NECK: Status post tracheostomy. HEART: Normal rate. LUNGS: Few rhonchi. The patient is on ventilator. ABDOMEN: Soft status post G-tube . EXTREMITIES: Peripheral line. No edema. NEUROLOGIC: Awake, alert, and responsive. Right-sided hemiplegia . LABORATORY AND DIAGNOSTIC DATA: WBC 9.9, hemoglobin 11.3, hematocrit 33.6, and platelet 155,000. Sodium 139, potassium 3.4, chloride 98, bicarbonate 26, BUN 11, and creatinine 0.8. Total bilirubin 9.9. Direct bilirubin 8. AST 55, ALT 63, and alkaline phosphatase 103. Blood culture x2 growing gram-negative rods. The patient has a CT scan of the abdomen and pelvis showed acute liver failure or cholecystitis. The patient has evidence of previous radicle prostatectomy. HIDA scan was not very conclusive if reportive acute hepatocellular failure versus bile duct obstruction. IMPRESSION: 1. Gram negative sepsis. The patient had suspected of cholecystitis or acute liver failure. 2. Chronic respiratory failure . 3. Hypertension. 4. Seizure disorder. 5. He may have also cystitis. RECOMMENDATION: As per UA and urine cultures. We will continue current antibiotic Zosyn. We will discontinue vancomycin. We will follow up the cultures. We will follow up recommendation made by surgeon and GI pci security consultant. At the end of my exam, I thank Dr. Marin, for involving me in the care of this patient. Mukesh Dodd M.D. DR: Josseline JOB#: [id number] CC: CATHERINE
[2017-01-06 16:09] VITALS: BP 114/73
[2017-01-06 18:17] LABS: APPEARANCE,URINE CLEAR; KETONES,URINE NEGATIVE (NEGATIVE); LEUKOCYTE ESTERASE ,URINE 2+ (NEGATIVE); NITRITE,URINE NEGATIVE (NEGATIVE); PH,URINE 8 (4.5-8.0); PROTEIN,URINE 2+ (NEGATIVE); UROBILINOGEN,URINE 1 MG/DL (0.0-1.0)
[2017-01-06 18:20] LABS: ICTOTEST POSITIVE
[2017-01-06 18:29] LABS: BACTERIA,URINE FEW /HPF
[2017-01-06 20:55] VITALS: BP 116/55
--- NOTE | 2017-01-06 21:46 | General Progress Note ---
Assessment/Plan Assessment/Plan Assessment - Leukocytosis, Jaundice -- ? cholecystitis vs, cholangitis, less likely hepatocellular disease - Resp failure Recommendations - check hepatitis serologies - check MRCP - check CMV/HSV/ EBV - abx - follow LFT - hold ASA and Ambien - close surgical f/u Subjective Allergies: Coded Allergies: No Known Allergies (Unverified , 01/04/17) Subjective Feels OK no complaints Objective Last 24 Hour Vital Signs Date Time Temp Pulse Resp B/P Pulse Ox O2 Delivery O2 Flow Rate FiO2 01/06/17 20:55 97.7 70 20 116/55 99 T-piece 01/06/17 19:25 T-piece 10.0 35 01/06/17 19:25 97 T-piece 35 01/06/17 17:15 65 114/73 01/06/17 16:09 97.7 68 20 114/73 100 Mechanical Ventilator 01/06/17 16:00 68 01/06/17 12:58 T-piece 10.0 35 01/06/17 12:58 98 T-piece 35 01/06/17 12:03 72 112/73 01/06/17 12:00 97.9 73 16 112/73 99 T-piece 12.0 35 01/06/17 12:00 75 01/06/17 08:00 81 01/06/17 08:00 97.0 76 18 111/71 97 T-piece 12.0 35 01/06/17 07:06 T-piece 10.0 35 01/06/17 07:06 99 T-piece 35 01/06/17 06:19 75 146/71 01/06/17 04:00 75 01/06/17 04:00 98.0 75 20 146/71 99 T-piece 35 01/06/17 00:55 T-piece 10.0 35 01/06/17 00:55 99 T-piece 35 01/06/17 00:46 79 134/74 01/06/17 00:00 75 01/06/17 00:00 98.6 79 20 134/74 95 T-piece Intake and Output 01/05/17 01/06/17 19:00 07:00 Intake Total 865.000 ml 1754.500 ml Output Total 200 ml 2000 ml Balance 665.000 ml -245.500 ml Intake Oral 200 ml IV Total 865.000 ml 1554.500 ml Output Urine Total 200 ml 2000 ml # Voids 4 # Bowel Movements 2 Laboratory Tests 01/06/17 05:05: White Blood Count 9.9#, Red Blood Count 3.75L, Hemoglobin 11.3L, Hematocrit 33.6L, Mean Corpuscular Volume 90, Mean Corpuscular Hemoglobin 30.1, Mean Corpuscular Hemoglobin Concent 33.6, Red Cell Distribution Width 13.1, Platelet Count 155, Mean Platelet Volume 7.8, Neutrophils (%) (Auto) 69.1, Lymphocytes (% ) (Auto) 10.5L, Monocytes (%) (Auto) 17.0H, Eosinophils (%) (Auto) 2.8, Basophils (%) (Auto) 0.6, Prothrombin Time 12.1H, Prothromb Time International Ratio 1.2H, Sodium Level 139, Potassium Level 3.4, Chloride Level 98, Carbon Dioxide Level 26, Anion Gap 15, Blood Urea Nitrogen 11, Creatinine 0.8, Estimat Glomerular Filtration Rate > 60, Glucose Level 85, Calcium Level 9.3, Total Bilirubin 9.9H, Direct Bilirubin 8.0H, Aspartate Amino Transf (AST/SGOT) 55H, Alanine Aminotransferase (ALT/SGPT) 63H, Alkaline Phosphatase 132H, Total Protein 7.0, Albumin 2.6L, Globulin 4.4, Albumin/Globulin Ratio 0.5L, Cytomegalovirus DNA Qual (PCR) [Pending], Hepatitis A IgM Antibody [Pending], Hepatitis B Surface Antigen [Pending], Hepatitis B Core IgM Antibody [Pending], Hepatitis C Antibody [Pending], Herpes Simplex Virus I IgM Ab (IFA) [Pending], Herpes Simplex Virus II IgM Ab (IFA [Pending], Monoscreen [Pending] 01/06/17 17:30: Urine Color Yellow, Urine Appearance Clear, Urine pH 8, Urine Specific [place] 1.010, Urine Protein 2+H, Urine Glucose (UA) Negative, Urine Ketones Negative, Urine Occult Blood 2+H, Urine Nitrite Negative, Urine Bilirubin 2+H, Urine Ictotest Positive, Urine Urobilinogen 1H, Urine Leukocyte Esterase 2+H, Urine RBC 5-10H, Urine WBC 10-15H, Urine Squamous Epithelial Cells None, Urine Bacteria Few Height (Feet): 6 Weight (Pounds): 169 Objective Debilitate AA man NCAT supple CTA RRR Abd soft, Mild epig/RUQ TTP no edema ANNIE MATHUR Jan 06, 2017 21:46
--- NOTE | 2017-01-06 22:49 | General Progress Note ---
Progress Note Progress Note See my previous notes. Pt followed for abd pain. praogressive jaundice. Has had CT abd, US, and HIDA findings did show evidence of hepatocellular disease s well as gallstones and a distended gallbladder. Seen by GI and ID PT is pending MRI of ABD Awake, alert, comfortable no abd pain. tracheostomy okay, not on vent abdome is soft, minimally distended Guevara's sign negative, no guarding or rebound Labs Test 01/05/17 04:30 01/06/17 05:05 01/06/17 17:30 White Blood Count 27.3 K/UL (4.8-10.8) 9.9 K/UL (4.8-10.8) Red Blood Count 3.94 M/UL (4.70-6.10) 3.75 M/UL (4.70-6.10) Hemoglobin 11.8 G/DL (14.2-18.0) 11.3 G/DL (14.2-18.0) Hematocrit 35.0 % (42.0-52.0) 33.6 % (42.0-52.0) Mean Corpuscular Volume 89 FL (80-99) 90 FL (80-99) Mean Corpuscular Hemoglobin 30.1 PG (27.0-31.0) 30.1 PG (27.0-31.0) Mean Corpuscular Hemoglobin Concent 33.8 G/DL (32.0-36.0) 33.6 G/DL (32.0-36.0) Red Cell Distribution Width 12.9 % (11.6-14.8) 13.1 % (11.6-14.8) Platelet Count 152 K/UL (150-450) 155 K/UL (150-450) Mean Platelet Volume 8.1 FL (6.5-10.1) 7.8 FL (6.5-10.1) Neutrophils (%) (Auto) % (45.0-75.0) 69.1 % (45.0-75.0) Lymphocytes (%) (Auto) % (20.0-45.0) 10.5 % (20.0-45.0) Monocytes (%) (Auto) % (1.0-10.0) 17.0 % (1.0-10.0) Eosinophils (%) (Auto) % (0.0-3.0) 2.8 % (0.0-3.0) Basophils (%) (Auto) % (0.0-2.0) 0.6 % (0.0-2.0) Differential Total Cells Counted 100 Neutrophils % (Manual) 83 % (45-75) Lymphocytes % (Manual) 5 % (20-45) Monocytes % (Manual) 12 % (1-10) Eosinophils % (Manual) 0 % (0-3) Basophils % (Manual) 0 % (0-2) Band Neutrophils 0 % (0-8) Platelet Estimate Adequate Platelet Morphology Normal Hypochromasia 1+ Prothrombin Time 13.8 SEC (9.30-11.50) 12.1 SEC (9.30-11.50) Prothromb Time International Ratio 1.3 (0.9-1.1) 1.2 (0.9-1.1) Sodium Level 139 mEQ/L (135-145) 139 mEQ/L (135-145) Potassium Level 3.5 mEQ/L (3.4-4.9) 3.4 mEQ/L (3.4-4.9) Chloride Level 99 mEQ/L (98-107) 98 mEQ/L (98-107) Carbon Dioxide Level 27 mEQ/L (20-30) 26 mEQ/L (20-30) Anion Gap 13 (5-15) 15 (5-15) Blood Urea Nitrogen 20 mg/dL (7-23) 11 mg/dL (7-23) Creatinine 1.0 mg/dL (0.7-1.2) 0.8 mg/dL (0.7-1.2) Estimat Glomerular Filtration Rate > 60 mL/min (>60) > 60 mL/min (>60) Glucose Level 110 mg/dL (74-106) 85 mg/dL (74-106) Calcium Level 9.0 mg/dL (8.6-10.2) 9.3 mg/dL (8.6-10.2) Total Bilirubin 7.7 mg/dL (0.0-1.2) 9.9 mg/dL (0.0-1.2) Direct Bilirubin 6.7 mg/dL (0.1-0.3) 8.0 mg/dL (0.1-0.3) Aspartate Amino Transf (AST/SGOT) 103 U/L (5-40) 55 U/L (5-40) Alanine Aminotransferase (ALT/SGPT) 96 U/L (3-41) 63 U/L (3-41) Alkaline Phosphatase 155 U/L (40-129) 132 U/L (40-129) Troponin I < 0.30 ng/mL (<=0.30) Total Protein 7.4 g/dL (6.6-8.7) 7.0 g/dL (6.6-8.7) Albumin 3.0 g/dL (3.5-5.2) 2.6 g/dL (3.5-5.2) Globulin 4.4 g/dL 4.4 g/dL Albumin/Globulin Ratio 0.6 (1.0-2.7) 0.5 (1.0-2.7) Urine Color Yellow Urine Appearance Clear Urine pH 8 (4.5-8.0) Urine Specific [place] 1.010 (1.005-1.035) Urine Protein 2+ (NEGATIVE) Urine Glucose (UA) Negative (NEGATIVE) Urine Ketones Negative (NEGATIVE) Urine Occult Blood 2+ (NEGATIVE) Urine Nitrite Negative (NEGATIVE) Urine Bilirubin 2+ (NEGATIVE) Urine Ictotest Positive Urine Urobilinogen 1 MG/DL (0.0-1.0) Urine Leukocyte Esterase 2+ (NEGATIVE) Urine RBC 5-10 /HPF (0 - 0) Urine WBC 10-15 /HPF (0 - 0) Urine Squamous Epithelial Cells None /LPF (NONE/OCC) Urine Bacteria Few /HPF (NONE) AWAIT MRI follow labs hepatitis panel at preseent does not suggest acute cholecystitis FRANCK FONTANEZ Jan 06, 2017 22:49
[2017-01-07] VITALS: BP_SYST 109; BP_SYST 112; BP_DIAS 60; BP_DIAS 71
[2017-01-07 04:00] VITALS: BP 121/71
[2017-01-07 04:54] LABS: BASOPHILS % (AUTO) 1.1 % (0.0-2.0); EOSINOPHILS % (AUTO) 5.3 % (0.0-3.0); LYMPHOCYTES % (AUTO) 18.7 % (20.0-45.0); MEAN CORPUSCULAR HEMOGLOBIN 29.8 PG (27.0-31.0); MEAN CORPUSCULAR VOLUME 90 FL (80-99); MONOCYTES % (AUTO) 15.5 % (1.0-10.0); NEUTROPHILS % (AUTO) 59.5 % (45.0-75.0); PLATELET COUNT 134 K/UL (150-450); RED BLOOD COUNT 3.77 M/UL (4.70-6.10); RED CELL DISTRIBUTION WIDTH 13.3 % (11.6-14.8); WHITE BLOOD COUNT 5.2 K/UL (4.8-10.8)
[2017-01-07 05:27] LABS: ALANINE AMINOTRANSFERASE 53 U/L (3-41); ALBUMIN/GLOBULIN RATIO 0.6 (1.0-2.7); ANION GAP 15 (5-15); ASPARTATE AMINO TRANSFERASE 58 U/L (5-40); CALCIUM 8.9 mg/dL (8.6-10.2); CARBON DIOXIDE 25 mEQ/L (20-30); CHLORIDE 101 mEQ/L (98-107); CREATININE 0.7 mg/dL (0.7-1.2); GLOMERULAR FILTRATION RATE > 60 mL/min (>60); HEMOLYSIS 13; POTASSIUM 3.6 mEQ/L (3.4-4.9); SODIUM 141 mEQ/L (135-145); TOTAL PROTEIN 6.9 g/dL (6.6-8.7)
[2017-01-07] MEDS: Piperacillin/Tazobactam 3.375 GM in D5W 110 ML IVPB SCH (06:00)
[2017-01-07 06:05] LABS: BILIRUBIN,DIRECT 7.8 mg/dL (0.1-0.3)
[2017-01-07 08:00] VITALS: BP 111/71
[2017-01-07] MEDS: Zinc Sulfate 220mg cap GT SCH (08:19)
[2017-01-07] MEDS: Pantoprazole Inj IVP SCH (08:19)
[2017-01-07] MEDS: Docusate 100mg tablet GT SCH (08:19)
[2017-01-07] MEDS: Ascorbic Acid 500mg tab GT SCH (08:20)
[2017-01-07] MEDS: levETIRAcetam 500mg/5ml Liquid GT SCH ×2 (08:20→21:52)
[2017-01-07] MEDS: Heparin 5000 units/ml inj SUBQ SCH ×2 (08:22→21:53)
--- NOTE | 2017-01-07 08:28 | General Progress Note ---
Assessment/Plan Assessment/Plan IMPRESSION: 1. Cholecystitis. 2. Elevated liver enzymes. 3. Hepatopathy. 4. Possible cystitis. 5. Sepsis. +Bcx 6. Tachyarrhythmia 7. bacteremia 8. elevated bilirubin PLAN feeds per GI GI/GS follow up IV hydration iv antibiotics ID noted monitor labs closely still guarded check serologies care noted and reviewed impression, plan, and exam edited and reviewed in detail care discussed with RN Subjective Allergies: Coded Allergies: No Known Allergies (Unverified , 01/04/17) Subjective jaundice poor LOC labs better Objective Last 24 Hour Vital Signs Date Time Temp Pulse Resp B/P Pulse Ox O2 Delivery O2 Flow Rate FiO2 01/07/17 07:18 97 T-piece 35 01/07/17 07:18 T-piece 10.0 35 01/07/17 06:16 61 121/71 01/07/17 04:00 62 01/07/17 04:00 98.0 67 20 121/71 100 T-piece 35 01/07/17 00:26 T-piece 10.0 35 01/07/17 00:25 98 T-piece 35 01/07/17 00:24 73 112/71 01/07/17 00:00 98.2 67 20 112/71 97 T-piece 01/07/17 00:00 62 01/06/17 20:55 97.7 70 20 116/55 99 T-piece 01/06/17 20:00 68 01/06/17 19:25 T-piece 10.0 35 01/06/17 19:25 97 T-piece 35 01/06/17 17:15 65 114/73 01/06/17 16:09 97.7 68 20 114/73 100 Mechanical Ventilator 01/06/17 16:00 68 01/06/17 12:58 T-piece 10.0 35 01/06/17 12:58 98 T-piece 35 01/06/17 12:03 72 112/73 01/06/17 12:00 97.9 73 16 112/73 99 T-piece 12.0 35 01/06/17 12:00 75 Intake and Output 01/06/17 01/07/17 19:00 07:00 Intake Total 957.0 ml 1314.5 ml Output Total 800 ml 1500 ml Balance 157.0 ml -185.5 ml IV Total 882.0 ml 1254.5 ml Other 75 ml 60 ml Output Urine Total 800 ml 1500 ml # Bowel Movements 1 Laboratory Tests 01/06/17 17:30: Urine Color Yellow, Urine Appearance Clear, Urine pH 8, Urine Specific [place] 1.010, Urine Protein 2+H, Urine Glucose (UA) Negative, Urine Ketones Negative, Urine Occult Blood 2+H, Urine Nitrite Negative, Urine Bilirubin 2+H, Urine Ictotest Positive, Urine Urobilinogen 1H, Urine Leukocyte Esterase 2+H, Urine RBC 5-10H, Urine WBC 10-15H, Urine Squamous Epithelial Cells None, Urine Bacteria Few 01/07/17 03:30: White Blood Count 5.2, Red Blood Count 3.77L, Hemoglobin 11.2L, Hematocrit 34.1L , Mean Corpuscular Volume 90, Mean Corpuscular Hemoglobin 29.8, Mean Corpuscular Hemoglobin Concent 33.0, Red Cell Distribution Width 13.3, Platelet Count 134L, Mean Platelet Volume 8.0, Neutrophils (%) (Auto) 59.5, Lymphocytes ( %) (Auto) 18.7L, Monocytes (%) (Auto) 15.5H, Eosinophils (%) (Auto) 5.3H, Basophils (%) (Auto) 1.1, Sodium Level 141, Potassium Level 3.6, Chloride Level 101, Carbon Dioxide Level 25, Anion Gap 15, Blood Urea Nitrogen 10, Creatinine 0.7, Estimat Glomerular Filtration Rate > 60, Glucose Level 72L, Calcium Level 8.9, Total Bilirubin 9.9H, Direct Bilirubin 7.8H, Aspartate Amino Transf (AST/ SGOT) 58H, Alanine Aminotransferase (ALT/SGPT) 53H, Alkaline Phosphatase 122, Total Protein 6.9, Albumin 2.6L, Globulin 4.3, Albumin/Globulin Ratio 0.6L Height (Feet): 6 Weight (Pounds): 169 Objective PHYSICAL EXAMINATION: GENERAL: The patient is a well-developed male, chronically ill. NECK: Supple LUNGS: With coarse breath sounds. CARDIAC: S1 and S2, irregular rate and rhythm. ABDOMEN: Mild tenderness. some edema jaundice CYNTHIA PERDOMO Jan 07, 2017 08:28
--- NOTE | 2017-01-07 09:07 | Diagnostic Imaging Report ---
Indications: Abdominal pain Technique: Transabdominal real-time grayscale and duplex Doppler imaging of the upper abdomen and retroperitoneum was performed. Findings: Comparison: None. Liver measures 19 cm in length. Normal surface contour, parenchymal echogenicity. No focal lesions. Gallbladder contains echogenic shadowing foci as well as lobular hypoechoic nodule material. Wall thickening is to 9 mm diameter. No adjacent fluid collection. Sonographic Guevara sign reported as negative, but likely indeterminate. Bile ducts nondilated within liver. Common bile duct 5 mm. Pancreas head and body unremarkable; tail obscured. 2.2 cm circumscribed hypoechoic solid-appearing lesion adjacent pancreatic head. Spleen 14 cm, no focal abnormality Right kidney contains 3.2 cm circumscribed anechoic focus, otherwise unremarkable. . Left kidney contains circumscribed anechoic structures up to 2.6 cm, otherwise unremarkable Abdominal aorta, intrahepatic portion of inferior vena cava patent, normal caliber. Duplex Doppler imaging demonstrates antegrade flow in splenic, portal, hepatic veins. No ascites. IMPRESSION: Gallbladder wall thickening with sludge, stones. Cholecystitis must be considered. No evidence of bile duct obstruction Bilateral renal cortical cysts Hepatosplenomegaly Peripancreatic prominent lymph node, of uncertain significance. Findings discussed with Dr. Hameed, consulting surgeon, by telephone at time of this dictation
--- NOTE | 2017-01-07 09:28 | General Progress Note ---
Assessment/Plan Assessment/Plan Assessment - Leukocytosis - resolved - Jaundice -- ? cholecystitis vs, cholangitis, less likely hepatocellular disease - Resp failure Recommendations - check hepatitis serologies - check MRCP today - check CMV/HSV/ EBV - abx - follow LFT - hold ASA and Ambien - close surgical f/u Subjective Allergies: Coded Allergies: No Known Allergies (Unverified , 01/04/17) Subjective Feels OK no complaints ? abd pain Objective Last 24 Hour Vital Signs Date Time Temp Pulse Resp B/P Pulse Ox O2 Delivery O2 Flow Rate FiO2 01/07/17 08:00 97.1 61 22 111/71 97 T-piece 35 01/07/17 07:18 97 T-piece 35 01/07/17 07:18 T-piece 10.0 35 01/07/17 06:16 61 121/71 01/07/17 04:00 62 01/07/17 04:00 98.0 67 20 121/71 100 T-piece 35 01/07/17 00:26 T-piece 10.0 35 01/07/17 00:25 98 T-piece 35 01/07/17 00:24 73 112/71 01/07/17 00:00 98.2 67 20 112/71 97 T-piece 01/07/17 00:00 62 01/06/17 20:55 97.7 70 20 116/55 99 T-piece 01/06/17 20:00 68 01/06/17 19:25 T-piece 10.0 35 01/06/17 19:25 97 T-piece 35 01/06/17 17:15 65 114/73 01/06/17 16:09 97.7 68 20 114/73 100 Mechanical Ventilator 01/06/17 16:00 68 01/06/17 12:58 T-piece 10.0 35 01/06/17 12:58 98 T-piece 35 01/06/17 12:03 72 112/73 01/06/17 12:00 97.9 73 16 112/73 99 T-piece 12.0 35 01/06/17 12:00 75 Intake and Output 01/06/17 01/07/17 19:00 07:00 Intake Total 957.0 ml 1314.5 ml Output Total 800 ml 1500 ml Balance 157.0 ml -185.5 ml IV Total 882.0 ml 1254.5 ml Other 75 ml 60 ml Output Urine Total 800 ml 1500 ml # Bowel Movements 1 Laboratory Tests 01/06/17 17:30: Urine Color Yellow, Urine Appearance Clear, Urine pH 8, Urine Specific [place] 1.010, Urine Protein 2+H, Urine Glucose (UA) Negative, Urine Ketones Negative, Urine Occult Blood 2+H, Urine Nitrite Negative, Urine Bilirubin 2+H, Urine Ictotest Positive, Urine Urobilinogen 1H, Urine Leukocyte Esterase 2+H, Urine RBC 5-10H, Urine WBC 10-15H, Urine Squamous Epithelial Cells None, Urine Bacteria Few 01/07/17 03:30: White Blood Count 5.2, Red Blood Count 3.77L, Hemoglobin 11.2L, Hematocrit 34.1L , Mean Corpuscular Volume 90, Mean Corpuscular Hemoglobin 29.8, Mean Corpuscular Hemoglobin Concent 33.0, Red Cell Distribution Width 13.3, Platelet Count 134L, Mean Platelet Volume 8.0, Neutrophils (%) (Auto) 59.5, Lymphocytes ( %) (Auto) 18.7L, Monocytes (%) (Auto) 15.5H, Eosinophils (%) (Auto) 5.3H, Basophils (%) (Auto) 1.1, Sodium Level 141, Potassium Level 3.6, Chloride Level 101, Carbon Dioxide Level 25, Anion Gap 15, Blood Urea Nitrogen 10, Creatinine 0.7, Estimat Glomerular Filtration Rate > 60, Glucose Level 72L, Calcium Level 8.9, Total Bilirubin 9.9H, Direct Bilirubin 7.8H, Aspartate Amino Transf (AST/ SGOT) 58H, Alanine Aminotransferase (ALT/SGPT) 53H, Alkaline Phosphatase 122, Total Protein 6.9, Albumin 2.6L, Globulin 4.3, Albumin/Globulin Ratio 0.6L Height (Feet): 6 Weight (Pounds): 169 Objective Debilitate AA man NCAT supple CTA RRR Abd soft, ? Mild epig/RUQ TTP no edema ANNIE MATHUR Jan 07, 2017 09:28
--- NOTE | 2017-01-07 11:57 | Infectious Diseases Prog Note ---
"Assessment/Plan Assessment/Plan antibiotics : zosyn A 1. pseudomonas sepsis 2. pseudomonas | serratia pneumonia 3. leucocytosis improving 4. ? cholecystitis 5. HTN P 1. d/c zosyn 2. start cefepime 3. will follow up cultures Subjective ROS Limited/Unobtainable: Yes Allergies: Coded Allergies: No Known Allergies (Unverified , 01/04/17) Objective Vital Signs Last 24 Hour Vital Signs Date Time Temp Pulse Resp B/P Pulse Ox O2 Delivery O2 Flow Rate FiO2 01/07/17 08:00 97.1 61 22 111/71 97 T-piece 35 01/07/17 08:00 64 01/07/17 07:18 97 T-piece 35 01/07/17 07:18 T-piece 10.0 35 01/07/17 06:16 61 121/71 01/07/17 04:00 62 01/07/17 04:00 98.0 67 20 121/71 100 T-piece 35 01/07/17 00:26 T-piece 10.0 35 01/07/17 00:25 98 T-piece 35 01/07/17 00:24 73 112/71 01/07/17 00:00 98.2 67 20 112/71 97 T-piece 01/07/17 00:00 62 01/06/17 20:55 97.7 70 20 116/55 99 T-piece 01/06/17 20:00 68 01/06/17 19:25 T-piece 10.0 35 01/06/17 19:25 97 T-piece 35 01/06/17 17:15 65 114/73 01/06/17 16:09 97.7 68 20 114/73 100 Mechanical Ventilator 01/06/17 16:00 68 01/06/17 12:58 T-piece 10.0 35 01/06/17 12:58 98 T-piece 35 01/06/17 12:03 72 112/73 01/06/17 12:00 97.9 73 16 112/73 99 T-piece 12.0 35 01/06/17 12:00 75 Height (Feet): 6 Weight (Pounds): 169 HEENT: status post trach Respiratory/Chest: lungs clear Cardiovascular: normal rate, regular rhythm, no gallop/murmur Abdomen: soft, non tender, other - GT Extremities: no edema Microbiology Date/Time Source Procedure Growth Status 01/04/17 17:00 Sputum Induced Gram Stain - Final Complete 01/04/17 17:00 Sputum Culture - Final Pseudomonas Aeruginosa Serratia Marcescens Usual Respiratory Brittany Complete 01/06/17 17:30 Urine,Clean Catch Urine Culture - Preliminary NO GROWTH Resulted Laboratory Tests Test 01/06/17 17:30 01/07/17 03:30 Urine Color Yellow Urine Appearance Clear Urine pH 8 (4.5-8.0) Urine Specific [place] 1.010 (1.005-1.035) Urine Protein 2+ (NEGATIVE) H Urine Glucose (UA) Negative (NEGATIVE) Urine Ketones Negative (NEGATIVE) Urine Occult Blood 2+ (NEGATIVE) H Urine Nitrite Negative (NEGATIVE) Urine Bilirubin 2+ (NEGATIVE) H Urine Ictotest Positive Urine Urobilinogen 1 MG/DL (0.0-1.0) H Urine Leukocyte Esterase 2+ (NEGATIVE) H Urine RBC 5-10 /HPF (0 - 0) H Urine WBC 10-15 /HPF (0 - 0) H Urine Squamous Epithelial Cells None /LPF (NONE/OCC) Urine Bacteria Few /HPF (NONE) White Blood Count 5.2 K/UL (4.8-10.8) Red Blood Count 3.77 M/UL (4.70-6.10) L Hemoglobin 11.2 G/DL (14.2-18.0) L Hematocrit 34.1 % (42.0-52.0) L Mean Corpuscular Volume 90 FL (80-99) Mean Corpuscular Hemoglobin 29.8 PG (27.0-31.0) Mean Corpuscular Hemoglobin Concent 33.0 G/DL (32.0-36.0) Red Cell Distribution Width 13.3 % (11.6-14.8) Platelet Count 134 K/UL (150-450) L Mean Platelet Volume 8.0 FL (6.5-10.1) Neutrophils (%) (Auto) 59.5 % (45.0-75.0) Lymphocytes (%) (Auto) 18.7 % (20.0-45.0) L Monocytes (%) (Auto) 15.5 % (1.0-10.0) H Eosinophils (%) (Auto) 5.3 % (0.0-3.0) H Basophils (%) (Auto) 1.1 % (0.0-2.0) Sodium Level 141 mEQ/L (135-145) Potassium Level 3.6 mEQ/L (3.4-4.9) Chloride Level 101 mEQ/L (98-107) Carbon Dioxide Level 25 mEQ/L (20-30) Anion Gap 15 (5-15) Blood Urea Nitrogen 10 mg/dL (7-23) Creatinine 0.7 mg/dL (0.7-1.2) Estimat Glomerular Filtration Rate > 60 mL/min (>60) Glucose Level 72 mg/dL (74-106) L Calcium Level 8.9 mg/dL (8.6-10.2) Total Bilirubin 9.9 mg/dL (0.0-1.2) H Direct Bilirubin 7.8 mg/dL (0.1-0.3) H Aspartate Amino Transf (AST/SGOT) 58 U/L (5-40) H Alanine Aminotransferase (ALT/SGPT) 53 U/L (3-41) H Alkaline Phosphatase 122 U/L (40-129) Total Protein 6.9 g/dL (6.6-8.7) Albumin 2.6 g/dL (3.5-5.2) L Globulin 4.3 g/dL Albumin/Globulin Ratio 0.6 (1.0-2.7) L BEREKET WILKINSON Jan 07, 2017 11:57"
[2017-01-07 12:00] VITALS: BP 111/72
--- NOTE | 2017-01-07 12:04 | General Surgery Progress Note ---
General Surgery-Progress Note Subjective Additional Comments patient seen and examined at bedside. doing okay. no complaints. on vent w/ trach. no acute events. Objective Last 24 Hour Vital Signs Date Time Temp Pulse Resp B/P Pulse Ox O2 Delivery O2 Flow Rate FiO2 01/07/17 08:00 97.1 61 22 111/71 97 T-piece 35 01/07/17 08:00 64 01/07/17 07:18 97 T-piece 35 01/07/17 07:18 T-piece 10.0 35 01/07/17 06:16 61 121/71 01/07/17 04:00 62 01/07/17 04:00 98.0 67 20 121/71 100 T-piece 35 01/07/17 00:26 T-piece 10.0 35 01/07/17 00:25 98 T-piece 35 01/07/17 00:24 73 112/71 01/07/17 00:00 98.2 67 20 112/71 97 T-piece 01/07/17 00:00 62 01/06/17 20:55 97.7 70 20 116/55 99 T-piece 01/06/17 20:00 68 01/06/17 19:25 T-piece 10.0 35 01/06/17 19:25 97 T-piece 35 01/06/17 17:15 65 114/73 01/06/17 16:09 97.7 68 20 114/73 100 Mechanical Ventilator 01/06/17 16:00 68 01/06/17 12:58 T-piece 10.0 35 01/06/17 12:58 98 T-piece 35 01/06/17 12:03 72 112/73 I&O Intake and Output 01/06/17 01/07/17 19:00 07:00 Intake Total 957.0 ml 1314.5 ml Output Total 800 ml 1500 ml Balance 157.0 ml -185.5 ml IV Total 882.0 ml 1254.5 ml Other 75 ml 60 ml Output Urine Total 800 ml 1500 ml # Bowel Movements 1 Cardiovascular: RSR Respiratory: clear Abdomen: soft, non-tender, present bowel sounds Laboratory Tests Test 01/06/17 17:30 01/07/17 03:30 Urine Color Yellow Urine Appearance Clear Urine pH 8 (4.5-8.0) Urine Specific [place] 1.010 (1.005-1.035) Urine Protein 2+ (NEGATIVE) H Urine Glucose (UA) Negative (NEGATIVE) Urine Ketones Negative (NEGATIVE) Urine Occult Blood 2+ (NEGATIVE) H Urine Nitrite Negative (NEGATIVE) Urine Bilirubin 2+ (NEGATIVE) H Urine Ictotest Positive Urine Urobilinogen 1 MG/DL (0.0-1.0) H Urine Leukocyte Esterase 2+ (NEGATIVE) H Urine RBC 5-10 /HPF (0 - 0) H Urine WBC 10-15 /HPF (0 - 0) H Urine Squamous Epithelial Cells None /LPF (NONE/OCC) Urine Bacteria Few /HPF (NONE) White Blood Count 5.2 K/UL (4.8-10.8) Red Blood Count 3.77 M/UL (4.70-6.10) L Hemoglobin 11.2 G/DL (14.2-18.0) L Hematocrit 34.1 % (42.0-52.0) L Mean Corpuscular Volume 90 FL (80-99) Mean Corpuscular Hemoglobin 29.8 PG (27.0-31.0) Mean Corpuscular Hemoglobin Concent 33.0 G/DL (32.0-36.0) Red Cell Distribution Width 13.3 % (11.6-14.8) Platelet Count 134 K/UL (150-450) L Mean Platelet Volume 8.0 FL (6.5-10.1) Neutrophils (%) (Auto) 59.5 % (45.0-75.0) Lymphocytes (%) (Auto) 18.7 % (20.0-45.0) L Monocytes (%) (Auto) 15.5 % (1.0-10.0) H Eosinophils (%) (Auto) 5.3 % (0.0-3.0) H Basophils (%) (Auto) 1.1 % (0.0-2.0) Sodium Level 141 mEQ/L (135-145) Potassium Level 3.6 mEQ/L (3.4-4.9) Chloride Level 101 mEQ/L (98-107) Carbon Dioxide Level 25 mEQ/L (20-30) Anion Gap 15 (5-15) Blood Urea Nitrogen 10 mg/dL (7-23) Creatinine 0.7 mg/dL (0.7-1.2) Estimat Glomerular Filtration Rate > 60 mL/min (>60) Glucose Level 72 mg/dL (74-106) L Calcium Level 8.9 mg/dL (8.6-10.2) Total Bilirubin 9.9 mg/dL (0.0-1.2) H Direct Bilirubin 7.8 mg/dL (0.1-0.3) H Aspartate Amino Transf (AST/SGOT) 58 U/L (5-40) H Alanine Aminotransferase (ALT/SGPT) 53 U/L (3-41) H Alkaline Phosphatase 122 U/L (40-129) Total Protein 6.9 g/dL (6.6-8.7) Albumin 2.6 g/dL (3.5-5.2) L Globulin 4.3 g/dL Albumin/Globulin Ratio 0.6 (1.0-2.7) L Plan Additional Comments 61 M with what seems to be acute liver injury. Questionable gallbladder disease or biliary obstruction but given HIDA, CT and US findings more suggestive of liver injury. Afebrile, HD stable, jaundice, abdomen benign. No acute surgical intervention trend labs pending MRCP will follow. Edi Gooden Jan 07, 2017 12:04
[2017-01-07] MEDS: Cefepime HCl 1 GM in D5W 55 ML IVPB SCH ×2 (14:23→23:00)
--- NOTE | 2017-01-07 15:52 | Diagnostic Imaging Report ---
Indication: Abdominal pain Technique: Coronal and axial single shot fast spin-echo breath-hold, axial T2 FRFSE, 2-D thick slab MRCP, AXIAL 2-D FIESTA fat saturated, axial 3-D dual echo breath-hold, water weighted axial LAVA FLEX, revealed 3-D MRCP images were obtained of the abdomen. MIP reconstructions were generated of the bile ducts Comparison: CT scan, ultrasound, nuclear medicine hepatobiliary scans of 01/04/2017 Findings: There is considerable image degradation due to motion artifact. Small amount of sludge is seen in the dependent portion of the gallbladder. Possible small stones are seen along the inferior wall and fundus, although this is equivocal. Edema of the gallbladder wall is again noted There is no biliary ductal dilatation. The pancreatic duct is grossly normal. The liver is unremarkable. The spleen is enlarged, measuring 17 cm long axis dimension. The pancreas is unremarkable. The bilateral adrenals are not well visualized, grossly unremarkable. There are trace bilateral pleural effusions. There are bilateral renal cysts, also described on prior exams. Gastrostomy is noted, better imaged on prior CT. Impression: Cholelithiasis and gallbladder sludge, better imaged on earlier studies. There is gallbladder wall edema. This could indicate acute cholecystitis. However, recent hepatobiliary scan demonstrated severe hepatocellular dysfunction, so the gallbladder wall edema could also be related to this. Negative for dilated bile ducts Splenomegaly Incidental findings as noted, including bilateral renal cysts, gastrostomy
[2017-01-07 16:00] VITALS: BP 113/70
[2017-01-07 20:00] VITALS: BP 110/70
[2017-01-08] VITALS: BP 120/70
[2017-01-08 04:00] VITALS: BP 115/72
[2017-01-08 05:01] LABS: BASOPHILS % (AUTO) 5.5 % (0.0-2.0); EOSINOPHILS % (AUTO) 5.6 % (0.0-3.0); LYMPHOCYTES % (AUTO) 14.4 % (20.0-45.0); MEAN CORPUSCULAR HEMOGLOBIN 29.6 PG (27.0-31.0); MEAN CORPUSCULAR HGB CONC 32.8 G/DL (32.0-36.0); MEAN CORPUSCULAR VOLUME 90 FL (80-99); MONOCYTES % (AUTO) 18.2 % (1.0-10.0); NEUTROPHILS % (AUTO) 56.3 % (45.0-75.0); PLATELET COUNT 130 K/UL (150-450); RED BLOOD COUNT 3.96 M/UL (4.70-6.10); RED CELL DISTRIBUTION WIDTH 13.1 % (11.6-14.8); WHITE BLOOD COUNT 4.8 K/UL (4.8-10.8)
[2017-01-08 05:09] LABS: INR 1.2 (0.9-1.1); PROTHROMBIN TIME 12.2 SEC (9.30-11.50)
[2017-01-08 05:20] LABS: ALANINE AMINOTRANSFERASE 48 U/L (3-41); ALBUMIN/GLOBULIN RATIO 0.6 (1.0-2.7); ANION GAP 18 (5-15); ASPARTATE AMINO TRANSFERASE 56 U/L (5-40); CALCIUM 9.2 mg/dL (8.6-10.2); CARBON DIOXIDE 23 mEQ/L (20-30); CHLORIDE 95 mEQ/L (98-107); CREATININE 0.7 mg/dL (0.7-1.2); GLOMERULAR FILTRATION RATE > 60 mL/min (>60); HEMOLYSIS 6; POTASSIUM 3.2 mEQ/L (3.4-4.9); SODIUM 136 mEQ/L (135-145); TOTAL PROTEIN 7.1 g/dL (6.6-8.7)
[2017-01-08 05:37] LABS: BILIRUBIN,DIRECT 7.3 mg/dL (0.1-0.3)
[2017-01-08 08:00] VITALS: BP 117/80
[2017-01-08] MEDS: levETIRAcetam 500mg/5ml Liquid GT SCH ×2 (08:17→20:54)
[2017-01-08] MEDS: Ascorbic Acid 500mg tab GT SCH (08:17)
[2017-01-08] MEDS: Docusate 100mg tablet GT SCH (08:17)
[2017-01-08] MEDS: Zinc Sulfate 220mg cap GT SCH (08:17)
[2017-01-08] MEDS: Cefepime HCl 1 GM in D5W 55 ML IVPB SCH ×2 (08:18→20:49)
[2017-01-08] MEDS: Pantoprazole Inj IVP SCH (08:18)
[2017-01-08] MEDS: Heparin 5000 units/ml inj SUBQ SCH ×2 (08:20→20:33)
--- NOTE | 2017-01-08 08:40 | General Progress Note ---
Assessment/Plan Assessment/Plan Assessment - Leukocytosis - resolved, suspect from cooled off cholecystitis - Hepatitis C - ? chronic liver disease/fibrosis - Jaundice - beyond what is seen with cholecystitis, ? combination of acute tatum and chronic liver disease - Resp failure/trach - dysphagia/ PEG Recommendations - f/u CMV/HSV/ EBV - abx - follow LFT - check liver / spleen scan - surgical f/u Subjective Allergies: Coded Allergies: No Known Allergies (Unverified , 01/04/17) Subjective Feels OK no complaints ? abd pain NPO discussed with surgery Hepatitis C (+) Objective Last 24 Hour Vital Signs Date Time Temp Pulse Resp B/P Pulse Ox O2 Delivery O2 Flow Rate FiO2 01/08/17 06:09 62 115/72 01/08/17 04:00 97.8 62 21 115/72 100 T-piece 35 01/08/17 03:21 65 01/08/17 01:07 99 T-piece 35 01/08/17 01:07 T-piece 10.0 35 01/08/17 00:52 81 129/70 01/08/17 00:00 68 01/08/17 00:00 97.8 68 21 120/70 98 T-piece 35 01/07/17 20:00 97.7 70 21 110/70 98 T-piece 35 01/07/17 19:45 99 T-piece 35 01/07/17 19:45 T-piece 10.0 35 01/07/17 19:00 72 01/07/17 17:52 63 113/70 01/07/17 16:00 63 01/07/17 16:00 97.7 68 21 113/70 98 T-piece 35 01/07/17 12:55 66 111/72 01/07/17 12:54 98 T-piece 35 01/07/17 12:54 T-piece 10.0 35 01/07/17 12:00 64 01/07/17 12:00 97.6 64 21 111/72 97 T-piece 35 Intake and Output 01/07/17 01/08/17 19:00 07:00 Intake Total 1075 ml 1210 ml Output Total 1750 ml 1500 ml Balance -675 ml -290 ml IV Total 1005 ml 1210 ml Other 70 ml Output Urine Total 1750 ml 1500 ml # Bowel Movements 1 Laboratory Tests 01/08/17 04:20: White Blood Count 4.8, Red Blood Count 3.96L, Hemoglobin 11.7L, Hematocrit 35.8L , Mean Corpuscular Volume 90, Mean Corpuscular Hemoglobin 29.6, Mean Corpuscular Hemoglobin Concent 32.8, Red Cell Distribution Width 13.1, Platelet Count 130L, Mean Platelet Volume 8.0, Neutrophils (%) (Auto) 56.3, Lymphocytes ( %) (Auto) 14.4L, Monocytes (%) (Auto) 18.2H, Eosinophils (%) (Auto) 5.6H, Basophils (%) (Auto) 5.5H, Prothrombin Time 12.2H, Prothromb Time International Ratio 1.2H, Sodium Level 136, Potassium Level 3.2L, Chloride Level 95L, Carbon Dioxide Level 23, Anion Gap 18H, Blood Urea Nitrogen 10, Creatinine 0.7, Estimat Glomerular Filtration Rate > 60, Glucose Level 75, Calcium Level 9.2, Total Bilirubin 9.2H, Direct Bilirubin 7.3H, Aspartate Amino Transf (AST/SGOT) 56H, Alanine Aminotransferase (ALT/SGPT) 48H, Alkaline Phosphatase 119, Total Protein 7.1, Albumin 2.7L, Globulin 4.4, Albumin/Globulin Ratio 0.6L Height (Feet): 6 Weight (Pounds): 169 Objective Debilitate AA man NCAT supple CTA RRR Abd soft, ? Mild epig/RUQ TTP no edema ANNIE MATHUR Jan 08, 2017 08:40
[2017-01-08] MEDS ORDERED: KCl 10% 40mEq/30ml liquid NG ONE (09:00)
--- NOTE | 2017-01-08 09:02 | General Progress Note ---
Assessment/Plan Assessment/Plan IMPRESSION: 1. Cholecystitis. 2. Elevated liver enzymes. 3. Hepatopathy. 4. Possible cystitis. 5. Sepsis. +Bcx 6. Tachyarrhythmia 7. bacteremia 8. elevated bilirubin PLAN feeds per GI GI/GS follow up IV hydration iv antibiotics ID noted replace K monitor labs closely still guarded check serologies MRI without significant findings from CT care noted and reviewed impression, plan, and exam edited and reviewed in detail care discussed with RN Subjective ROS Limited/Unobtainable: Yes Allergies: Coded Allergies: No Known Allergies (Unverified , 01/04/17) Subjective jaundice improved LOC labs better Objective Last 24 Hour Vital Signs Date Time Temp Pulse Resp B/P Pulse Ox O2 Delivery O2 Flow Rate FiO2 01/08/17 07:46 T-piece 10.0 35 01/08/17 07:40 100 T-piece 35 01/08/17 06:09 62 115/72 01/08/17 04:00 97.8 62 21 115/72 100 T-piece 35 01/08/17 03:21 65 01/08/17 01:07 99 T-piece 35 01/08/17 01:07 T-piece 10.0 35 01/08/17 00:52 81 129/70 01/08/17 00:00 68 01/08/17 00:00 97.8 68 21 120/70 98 T-piece 35 01/07/17 20:00 97.7 70 21 110/70 98 T-piece 35 01/07/17 19:45 99 T-piece 35 01/07/17 19:45 T-piece 10.0 35 01/07/17 19:00 72 01/07/17 17:52 63 113/70 01/07/17 16:00 63 01/07/17 16:00 97.7 68 21 113/70 98 T-piece 35 01/07/17 12:55 66 111/72 01/07/17 12:54 98 T-piece 35 01/07/17 12:54 T-piece 10.0 35 01/07/17 12:00 64 01/07/17 12:00 97.6 64 21 111/72 97 T-piece 35 Intake and Output 01/07/17 01/08/17 19:00 07:00 Intake Total 1075 ml 1210 ml Output Total 1750 ml 1500 ml Balance -675 ml -290 ml IV Total 1005 ml 1210 ml Other 70 ml Output Urine Total 1750 ml 1500 ml # Bowel Movements 1 Laboratory Tests 01/08/17 04:20: White Blood Count 4.8, Red Blood Count 3.96L, Hemoglobin 11.7L, Hematocrit 35.8L , Mean Corpuscular Volume 90, Mean Corpuscular Hemoglobin 29.6, Mean Corpuscular Hemoglobin Concent 32.8, Red Cell Distribution Width 13.1, Platelet Count 130L, Mean Platelet Volume 8.0, Neutrophils (%) (Auto) 56.3, Lymphocytes ( %) (Auto) 14.4L, Monocytes (%) (Auto) 18.2H, Eosinophils (%) (Auto) 5.6H, Basophils (%) (Auto) 5.5H, Prothrombin Time 12.2H, Prothromb Time International Ratio 1.2H, Sodium Level 136, Potassium Level 3.2L, Chloride Level 95L, Carbon Dioxide Level 23, Anion Gap 18H, Blood Urea Nitrogen 10, Creatinine 0.7, Estimat Glomerular Filtration Rate > 60, Glucose Level 75, Calcium Level 9.2, Total Bilirubin 9.2H, Direct Bilirubin 7.3H, Aspartate Amino Transf (AST/SGOT) 56H, Alanine Aminotransferase (ALT/SGPT) 48H, Alkaline Phosphatase 119, Total Protein 7.1, Albumin 2.7L, Globulin 4.4, Albumin/Globulin Ratio 0.6L Height (Feet): 6 Weight (Pounds): 169 Objective PHYSICAL EXAMINATION: GENERAL: The patient is a well-developed male, chronically ill. NECK: Supple LUNGS: With coarse breath sounds. CARDIAC: S1 and S2, irregular rate and rhythm. ABDOMEN: Mild tenderness. some edema jaundice CYNTHIA PERDOMO Jan 08, 2017 09:02
[2017-01-08] MEDS ORDERED: Sterile Water Irrig 1000ml IRRIG ONE (10:28)
--- NOTE | 2017-01-08 11:08 | General Surgery Progress Note ---
General Surgery-Progress Note Subjective Additional Comments Patient seen and examined at bedside. on trach collar. doing okay. no complaints. no abdominal pain. Objective Last 24 Hour Vital Signs Date Time Temp Pulse Resp B/P Pulse Ox O2 Delivery O2 Flow Rate FiO2 01/08/17 08:00 97.0 63 19 117/80 99 T-piece 01/08/17 08:00 61 01/08/17 07:46 T-piece 10.0 35 01/08/17 07:40 100 T-piece 35 01/08/17 06:09 62 115/72 01/08/17 04:00 97.8 62 21 115/72 100 T-piece 35 01/08/17 03:21 65 01/08/17 01:07 99 T-piece 35 01/08/17 01:07 T-piece 10.0 35 01/08/17 00:52 81 129/70 01/08/17 00:00 68 01/08/17 00:00 97.8 68 21 120/70 98 T-piece 35 01/07/17 20:00 97.7 70 21 110/70 98 T-piece 35 01/07/17 19:45 99 T-piece 35 01/07/17 19:45 T-piece 10.0 35 01/07/17 19:00 72 01/07/17 17:52 63 113/70 01/07/17 16:00 63 01/07/17 16:00 97.7 68 21 113/70 98 T-piece 35 01/07/17 12:55 66 111/72 01/07/17 12:54 98 T-piece 35 01/07/17 12:54 T-piece 10.0 35 01/07/17 12:00 64 01/07/17 12:00 97.6 64 21 111/72 97 T-piece 35 I&O Intake and Output 01/07/17 01/08/17 19:00 07:00 Intake Total 1075 ml 1310 ml Output Total 1750 ml 1500 ml Balance -675 ml -190 ml IV Total 1005 ml 1310 ml Other 70 ml Output Urine Total 1750 ml 1500 ml # Bowel Movements 1 Cardiovascular: RSR Respiratory: clear Abdomen: soft, non-tender, present bowel sounds Laboratory Tests Test 01/08/17 04:20 White Blood Count 4.8 K/UL (4.8-10.8) Red Blood Count 3.96 M/UL (4.70-6.10) L Hemoglobin 11.7 G/DL (14.2-18.0) L Hematocrit 35.8 % (42.0-52.0) L Mean Corpuscular Volume 90 FL (80-99) Mean Corpuscular Hemoglobin 29.6 PG (27.0-31.0) Mean Corpuscular Hemoglobin Concent 32.8 G/DL (32.0-36.0) Red Cell Distribution Width 13.1 % (11.6-14.8) Platelet Count 130 K/UL (150-450) L Mean Platelet Volume 8.0 FL (6.5-10.1) Neutrophils (%) (Auto) 56.3 % (45.0-75.0) Lymphocytes (%) (Auto) 14.4 % (20.0-45.0) L Monocytes (%) (Auto) 18.2 % (1.0-10.0) H Eosinophils (%) (Auto) 5.6 % (0.0-3.0) H Basophils (%) (Auto) 5.5 % (0.0-2.0) H Prothrombin Time 12.2 SEC (9.30-11.50) H Prothromb Time International Ratio 1.2 (0.9-1.1) H Sodium Level 136 mEQ/L (135-145) Potassium Level 3.2 mEQ/L (3.4-4.9) L Chloride Level 95 mEQ/L (98-107) L Carbon Dioxide Level 23 mEQ/L (20-30) Anion Gap 18 (5-15) H Blood Urea Nitrogen 10 mg/dL (7-23) Creatinine 0.7 mg/dL (0.7-1.2) Estimat Glomerular Filtration Rate > 60 mL/min (>60) Glucose Level 75 mg/dL (74-106) Calcium Level 9.2 mg/dL (8.6-10.2) Total Bilirubin 9.2 mg/dL (0.0-1.2) H Direct Bilirubin 7.3 mg/dL (0.1-0.3) H Aspartate Amino Transf (AST/SGOT) 56 U/L (5-40) H Alanine Aminotransferase (ALT/SGPT) 48 U/L (3-41) H Alkaline Phosphatase 119 U/L (40-129) Total Protein 7.1 g/dL (6.6-8.7) Albumin 2.7 g/dL (3.5-5.2) L Globulin 4.4 g/dL Albumin/Globulin Ratio 0.6 (1.0-2.7) L Plan Additional Comments 61 M who presented with significant leukocytosis, elevated liver function labs, and radiological findings as noted in chart. T bili remains elevated at >9 (seems to have peaked), direct bili elevated at > 7. Obstructive pattern but MRCP demonstrates patent biliary tract without intra or extra hepatic ducts being dilated. Potentially intrinsic liver disease cannot be ruled out. Unlikely this is caused by acute cholecystitis but does have mild gallbladder thickening. Will continue to monitor No acute surgical intervention necessary. Can trial diet and see how he does will await liver spleen scan results trend labs. will continue to follow. Edi Gooden Jan 08, 2017 11:08
[2017-01-08 11:11] LABS: MONOTEST Negative (Negative)
--- NOTE | 2017-01-08 11:21 | Infectious Diseases Prog Note ---
"Assessment/Plan Assessment/Plan antibiotics : cefepime A 1. pseudomonas sepsis 2. pseudomonas | serratia pneumonia 3. leucocytosis improving 4. ? cholecystitis 5. HTN P 1. continue cefepime 8 more days 2. will follow up cultures Subjective ROS Limited/Unobtainable: Yes Allergies: Coded Allergies: No Known Allergies (Unverified , 01/04/17) Objective Vital Signs Last 24 Hour Vital Signs Date Time Temp Pulse Resp B/P Pulse Ox O2 Delivery O2 Flow Rate FiO2 01/08/17 08:00 97.0 63 19 117/80 99 T-piece 01/08/17 08:00 61 01/08/17 07:46 T-piece 10.0 35 01/08/17 07:40 100 T-piece 35 01/08/17 06:09 62 115/72 01/08/17 04:00 97.8 62 21 115/72 100 T-piece 35 01/08/17 03:21 65 01/08/17 01:07 99 T-piece 35 01/08/17 01:07 T-piece 10.0 35 01/08/17 00:52 81 129/70 01/08/17 00:00 68 01/08/17 00:00 97.8 68 21 120/70 98 T-piece 35 01/07/17 20:00 97.7 70 21 110/70 98 T-piece 35 01/07/17 19:45 99 T-piece 35 01/07/17 19:45 T-piece 10.0 35 01/07/17 19:00 72 01/07/17 17:52 63 113/70 01/07/17 16:00 63 01/07/17 16:00 97.7 68 21 113/70 98 T-piece 35 01/07/17 12:55 66 111/72 01/07/17 12:54 98 T-piece 35 01/07/17 12:54 T-piece 10.0 35 01/07/17 12:00 64 01/07/17 12:00 97.6 64 21 111/72 97 T-piece 35 Height (Feet): 6 Weight (Pounds): 169 HEENT: status post trach Respiratory/Chest: lungs clear Cardiovascular: normal rate, regular rhythm, no gallop/murmur Abdomen: soft, non tender, other - GT Extremities: no edema Microbiology Date/Time Source Procedure Growth Status 01/06/17 17:30 Urine,Clean Catch Urine Culture - Preliminary NO GROWTH AFTER 24 HOURS Resulted Laboratory Tests Test 01/08/17 04:20 White Blood Count 4.8 K/UL (4.8-10.8) Red Blood Count 3.96 M/UL (4.70-6.10) L Hemoglobin 11.7 G/DL (14.2-18.0) L Hematocrit 35.8 % (42.0-52.0) L Mean Corpuscular Volume 90 FL (80-99) Mean Corpuscular Hemoglobin 29.6 PG (27.0-31.0) Mean Corpuscular Hemoglobin Concent 32.8 G/DL (32.0-36.0) Red Cell Distribution Width 13.1 % (11.6-14.8) Platelet Count 130 K/UL (150-450) L Mean Platelet Volume 8.0 FL (6.5-10.1) Neutrophils (%) (Auto) 56.3 % (45.0-75.0) Lymphocytes (%) (Auto) 14.4 % (20.0-45.0) L Monocytes (%) (Auto) 18.2 % (1.0-10.0) H Eosinophils (%) (Auto) 5.6 % (0.0-3.0) H Basophils (%) (Auto) 5.5 % (0.0-2.0) H Prothrombin Time 12.2 SEC (9.30-11.50) H Prothromb Time International Ratio 1.2 (0.9-1.1) H Sodium Level 136 mEQ/L (135-145) Potassium Level 3.2 mEQ/L (3.4-4.9) L Chloride Level 95 mEQ/L (98-107) L Carbon Dioxide Level 23 mEQ/L (20-30) Anion Gap 18 (5-15) H Blood Urea Nitrogen 10 mg/dL (7-23) Creatinine 0.7 mg/dL (0.7-1.2) Estimat Glomerular Filtration Rate > 60 mL/min (>60) Glucose Level 75 mg/dL (74-106) Calcium Level 9.2 mg/dL (8.6-10.2) Total Bilirubin 9.2 mg/dL (0.0-1.2) H Direct Bilirubin 7.3 mg/dL (0.1-0.3) H Aspartate Amino Transf (AST/SGOT) 56 U/L (5-40) H Alanine Aminotransferase (ALT/SGPT) 48 U/L (3-41) H Alkaline Phosphatase 119 U/L (40-129) Total Protein 7.1 g/dL (6.6-8.7) Albumin 2.7 g/dL (3.5-5.2) L Globulin 4.4 g/dL Albumin/Globulin Ratio 0.6 (1.0-2.7) L BEREKET WILKINSON Jan 08, 2017 11:21"
[2017-01-08 12:00] VITALS: BP 125/74
--- NOTE | 2017-01-08 15:04 | Diagnostic Imaging Report ---
Indication: Abdominal pain, hepatocellular dysfunction Technique: IV administration 6.4 mCi 99m technetium sulfur colloid images over the abdomen in multiple obliquities Comparison: Reference made to recent CT, MRI, ultrasound, and nuclear medicine hepatobiliary scan Findings: Liver demonstrates normal uptake, size, contour, no focal abnormality. The spleen is enlarged. Equivocally mildly prominent bone marrow uptake is demonstrated Impression: Normal-appearing liver Splenomegaly, also described on prior cross-sectional imaging studies Equivocally slightly increased bone marrow uptake, if real could indicate anemia
[2017-01-08 16:00] VITALS: BP 123/73
[2017-01-08 20:00] VITALS: BP 122/79
[2017-01-09] VITALS: BP 116/74
[2017-01-09 04:00] VITALS: BP 125/74
[2017-01-09 05:26] LABS: BASOPHILS % (AUTO) 1.6 % (0.0-2.0); EOSINOPHILS % (AUTO) 5.3 % (0.0-3.0); LYMPHOCYTES % (AUTO) 28.5 % (20.0-45.0); MEAN CORPUSCULAR HGB CONC 33.6 G/DL (32.0-36.0); MEAN CORPUSCULAR VOLUME 89 FL (80-99); MONOCYTES % (AUTO) 11.3 % (1.0-10.0); NEUTROPHILS % (AUTO) 53.2 % (45.0-75.0); PLATELET COUNT 175 K/UL (150-450); RED BLOOD COUNT 3.85 M/UL (4.70-6.10); WHITE BLOOD COUNT 5.9 K/UL (4.8-10.8)
[2017-01-09 05:27] LABS: INR 1.1 (0.9-1.1); PROTHROMBIN TIME 11.5 SEC (9.30-11.50)
[2017-01-09 05:46] LABS: ALANINE AMINOTRANSFERASE 45 U/L (3-41); ALBUMIN/GLOBULIN RATIO 0.5 (1.0-2.7); ANION GAP 15 (5-15); ASPARTATE AMINO TRANSFERASE 59 U/L (5-40); CALCIUM 9.2 mg/dL (8.6-10.2); CARBON DIOXIDE 25 mEQ/L (20-30); CHLORIDE 99 mEQ/L (98-107); CREATININE 0.7 mg/dL (0.7-1.2); GLOMERULAR FILTRATION RATE > 60 mL/min (>60); HEMOLYSIS 0; POTASSIUM 3.6 mEQ/L (3.4-4.9); SODIUM 139 mEQ/L (135-145); TOTAL PROTEIN 7.3 g/dL (6.6-8.7)
[2017-01-09 06:33] LABS: BILIRUBIN,DIRECT 4.7 mg/dL (0.1-0.3)
[2017-01-09 08:00] VITALS: BP 115/70
[2017-01-09 08:11] LABS: CMV DNA PCR QUAL BLOOD/CSF Negative (Negative)
--- NOTE | 2017-01-09 08:53 | General Progress Note ---
Assessment/Plan Assessment/Plan IMPRESSION: 1. Cholecystitis. 2. Elevated liver enzymes. 3. Hepatopathy. 4. Possible cystitis. 5. Sepsis. +Bcx 6. Tachyarrhythmia 7. bacteremia 8. elevated bilirubin PLAN feeds per GI GI/GS follow up IV hydration iv antibiotics ID noted still guarded check serologies dc in am if labs continue to improve care noted and reviewed impression, plan, and exam edited and reviewed in detail care discussed with RN Subjective Allergies: Coded Allergies: No Known Allergies (Unverified , 01/04/17) Subjective jaundice improved improved LOC labs improved Objective Last 24 Hour Vital Signs Date Time Temp Pulse Resp B/P Pulse Ox O2 Delivery O2 Flow Rate FiO2 01/09/17 08:00 97.0 59 17 115/70 100 35 01/09/17 06:58 98 T-piece 35 01/09/17 06:58 T-piece 10.0 35 01/09/17 06:55 63 125/74 01/09/17 04:00 97.0 63 18 125/74 100 T-piece 10.0 35 01/09/17 03:44 61 01/09/17 00:57 T-piece 10.0 35 01/09/17 00:56 100 T-piece 35 01/09/17 00:47 72 116/74 01/09/17 00:00 97.0 72 18 116/74 100 Mechanical Ventilator 10.0 35 01/08/17 23:40 60 01/08/17 20:00 97.0 70 18 122/79 100 Mechanical Ventilator 10.0 35 01/08/17 19:17 61 01/08/17 19:08 T-piece 10.0 35 01/08/17 19:08 99 T-piece 35 01/08/17 17:48 65 128/68 01/08/17 16:00 56 01/08/17 16:00 98.8 62 21 123/73 100 T-piece 01/08/17 13:21 T-piece 10.0 35 01/08/17 13:20 100 T-piece 35 01/08/17 13:08 65 125/74 01/08/17 12:00 98.1 64 20 125/74 100 T-piece 01/08/17 12:00 65 Intake and Output 01/08/17 01/09/17 19:00 07:00 Intake Total 1405 ml 1250 ml Output Total 900 ml 1200 ml Balance 505 ml 50 ml IV Total 1255 ml 1200 ml Other 150 ml 50 ml Output Urine Total 900 ml 1200 ml Laboratory Tests 01/09/17 03:10: White Blood Count 5.9, Red Blood Count 3.85L, Hemoglobin 11.6L, Hematocrit 34.4L , Mean Corpuscular Volume 89, Mean Corpuscular Hemoglobin 30.0, Mean Corpuscular Hemoglobin Concent 33.6, Red Cell Distribution Width 13.0, Platelet Count 175, Mean Platelet Volume 7.0, Neutrophils (%) (Auto) 53.2, Lymphocytes (% ) (Auto) 28.5, Monocytes (%) (Auto) 11.3H, Eosinophils (%) (Auto) 5.3H, Basophils (%) (Auto) 1.6, Prothrombin Time 11.5, Prothromb Time International Ratio 1.1, Sodium Level 139, Potassium Level 3.6, Chloride Level 99, Carbon Dioxide Level 25, Anion Gap 15, Blood Urea Nitrogen 8, Creatinine 0.7, Estimat Glomerular Filtration Rate > 60, Glucose Level 70L, Calcium Level 9.2, Total Bilirubin 6.3H, Direct Bilirubin 4.7H, Aspartate Amino Transf (AST/SGOT) 59H, Alanine Aminotransferase (ALT/SGPT) 45H, Alkaline Phosphatase 116, Total Protein 7.3, Albumin 2.7L, Globulin 4.6, Albumin/Globulin Ratio 0.5L Height (Feet): 6 Weight (Pounds): 169 Objective PHYSICAL EXAMINATION: GENERAL: The patient is a well-developed male, chronically ill. NECK: Supple LUNGS: With coarse breath sounds. CARDIAC: S1 and S2, irregular rate and rhythm. ABDOMEN: NABS nontender some edema jaundice better CYNTHIA PERDOMO Jan 09, 2017 08:53
[2017-01-09] MEDS: levETIRAcetam 500mg/5ml Liquid GT SCH ×2 (09:33→20:42)
[2017-01-09] MEDS: Pantoprazole Inj IVP SCH (09:33)
[2017-01-09] MEDS: Docusate 100mg tablet GT SCH (09:33)
[2017-01-09] MEDS: Zinc Sulfate 220mg cap GT SCH (09:33)
[2017-01-09] MEDS: Cefepime HCl 1 GM in D5W 55 ML IVPB SCH ×2 (09:34→20:42)
[2017-01-09] MEDS: Heparin 5000 units/ml inj SUBQ SCH ×2 (09:36→20:50)
[2017-01-09] MEDS: Ascorbic Acid 500mg tab GT SCH (09:44)
[2017-01-09] MEDS ORDERED: Sterile Water Irrig 1000ml IRRIG ONE (09:47)
--- NOTE | 2017-01-09 10:34 | General Surgery Progress Note ---
General Surgery-Progress Note Subjective Additional Comments patient seen and examined at bedside with no acute events. doing well. Liver spleen scan otherwise normal. Labs improving. Objective Last 24 Hour Vital Signs Date Time Temp Pulse Resp B/P Pulse Ox O2 Delivery O2 Flow Rate FiO2 01/09/17 08:00 61 01/09/17 08:00 97.0 59 17 115/70 100 35 01/09/17 06:58 98 T-piece 35 01/09/17 06:58 T-piece 10.0 35 01/09/17 06:55 63 125/74 01/09/17 04:00 97.0 63 18 125/74 100 T-piece 10.0 35 01/09/17 03:44 61 01/09/17 00:57 T-piece 10.0 35 01/09/17 00:56 100 T-piece 35 01/09/17 00:47 72 116/74 01/09/17 00:00 97.0 72 18 116/74 100 Mechanical Ventilator 10.0 35 01/08/17 23:40 60 01/08/17 20:00 97.0 70 18 122/79 100 Mechanical Ventilator 10.0 35 01/08/17 19:17 61 01/08/17 19:08 T-piece 10.0 35 01/08/17 19:08 99 T-piece 35 01/08/17 17:48 65 128/68 01/08/17 16:00 56 01/08/17 16:00 98.8 62 21 123/73 100 T-piece 01/08/17 13:21 T-piece 10.0 35 01/08/17 13:20 100 T-piece 35 01/08/17 13:08 65 125/74 01/08/17 12:00 98.1 64 20 125/74 100 T-piece 01/08/17 12:00 65 I&O Intake and Output 01/08/17 01/09/17 19:00 07:00 Intake Total 1405 ml 1250 ml Output Total 900 ml 1200 ml Balance 505 ml 50 ml IV Total 1255 ml 1200 ml Other 150 ml 50 ml Output Urine Total 900 ml 1200 ml Cardiovascular: RSR Respiratory: decreased breath sounds Abdomen: soft, non-tender, present bowel sounds Laboratory Tests Test 01/09/17 03:10 White Blood Count 5.9 K/UL (4.8-10.8) Red Blood Count 3.85 M/UL (4.70-6.10) L Hemoglobin 11.6 G/DL (14.2-18.0) L Hematocrit 34.4 % (42.0-52.0) L Mean Corpuscular Volume 89 FL (80-99) Mean Corpuscular Hemoglobin 30.0 PG (27.0-31.0) Mean Corpuscular Hemoglobin Concent 33.6 G/DL (32.0-36.0) Red Cell Distribution Width 13.0 % (11.6-14.8) Platelet Count 175 K/UL (150-450) Mean Platelet Volume 7.0 FL (6.5-10.1) Neutrophils (%) (Auto) 53.2 % (45.0-75.0) Lymphocytes (%) (Auto) 28.5 % (20.0-45.0) Monocytes (%) (Auto) 11.3 % (1.0-10.0) H Eosinophils (%) (Auto) 5.3 % (0.0-3.0) H Basophils (%) (Auto) 1.6 % (0.0-2.0) Prothrombin Time 11.5 SEC (9.30-11.50) Prothromb Time International Ratio 1.1 (0.9-1.1) Sodium Level 139 mEQ/L (135-145) Potassium Level 3.6 mEQ/L (3.4-4.9) Chloride Level 99 mEQ/L (98-107) Carbon Dioxide Level 25 mEQ/L (20-30) Anion Gap 15 (5-15) Blood Urea Nitrogen 8 mg/dL (7-23) Creatinine 0.7 mg/dL (0.7-1.2) Estimat Glomerular Filtration Rate > 60 mL/min (>60) Glucose Level 70 mg/dL (74-106) L Calcium Level 9.2 mg/dL (8.6-10.2) Total Bilirubin 6.3 mg/dL (0.0-1.2) H Direct Bilirubin 4.7 mg/dL (0.1-0.3) H Aspartate Amino Transf (AST/SGOT) 59 U/L (5-40) H Alanine Aminotransferase (ALT/SGPT) 45 U/L (3-41) H Alkaline Phosphatase 116 U/L (40-129) Total Protein 7.3 g/dL (6.6-8.7) Albumin 2.7 g/dL (3.5-5.2) L Globulin 4.6 g/dL Albumin/Globulin Ratio 0.5 (1.0-2.7) L Assessment Post-op Diagnosis Doing okay. no acute events. Liver spleen scan normal. T bili improved today Atypical potential acute cholecystitis with elevated liver function tests, thickened gallbladder wall with sludge but no notable biliary obstruction. Plan for repeat HIDA as t bili trends down. If normal can d/c from surgical standpoint. If non filling will need to discuss cholecystectomy with patient. Edi Gooden Jan 09, 2017 10:34
[2017-01-09 12:00] VITALS: BP 116/74
[2017-01-09 16:00] VITALS: BP 121/71
--- NOTE | 2017-01-09 16:27 | Infectious Diseases Prog Note ---
Assessment/Plan Assessment/Plan A 1. pseudomonas sepsis 2. pseudomonas ,serratia pneumonia 3. leucocytosis improving 4. acute liver failure 5. HPN P 1. continue cefepime 7 more days 2. will follow up cultures Subjective ROS Limited/Unobtainable: Yes Respiratory: Reports: productive cough Allergies: Coded Allergies: No Known Allergies (Unverified , 01/04/17) Objective Vital Signs Last 24 Hour Vital Signs Date Time Temp Pulse Resp B/P Pulse Ox O2 Delivery O2 Flow Rate FiO2 01/09/17 13:12 98 T-piece 35 01/09/17 13:12 T-piece 10.0 35 01/09/17 12:00 97.0 57 18 116/74 99 35 01/09/17 11:49 61 115/70 01/09/17 08:00 61 01/09/17 08:00 97.0 59 17 115/70 100 35 01/09/17 06:58 98 T-piece 35 01/09/17 06:58 T-piece 10.0 35 01/09/17 06:55 63 125/74 01/09/17 04:00 97.0 63 18 125/74 100 T-piece 10.0 35 01/09/17 03:44 61 01/09/17 00:57 T-piece 10.0 35 01/09/17 00:56 100 T-piece 35 01/09/17 00:47 72 116/74 01/09/17 00:00 97.0 72 18 116/74 100 Mechanical Ventilator 10.0 35 01/08/17 23:40 60 01/08/17 20:00 97.0 70 18 122/79 100 Mechanical Ventilator 10.0 35 01/08/17 19:17 61 01/08/17 19:08 T-piece 10.0 35 01/08/17 19:08 99 T-piece 35 01/08/17 17:48 65 128/68 Height (Feet): 6 Weight (Pounds): 169 General Appearance: no acute distress HEENT: status post trach, other - icterus Respiratory/Chest: lungs clear Cardiovascular: bradycardia Abdomen: soft, non tender, other - GT feeding Extremities: no edema Neurologic/Psychiatric: alert, responsive Microbiology Date/Time Source Procedure Growth Status 01/06/17 17:30 Urine,Clean Catch Urine Culture - Final NO GROWTH AFTER 48 HOURS Complete Laboratory Tests Test 01/09/17 03:10 White Blood Count 5.9 K/UL (4.8-10.8) Red Blood Count 3.85 M/UL (4.70-6.10) L Hemoglobin 11.6 G/DL (14.2-18.0) L Hematocrit 34.4 % (42.0-52.0) L Mean Corpuscular Volume 89 FL (80-99) Mean Corpuscular Hemoglobin 30.0 PG (27.0-31.0) Mean Corpuscular Hemoglobin Concent 33.6 G/DL (32.0-36.0) Red Cell Distribution Width 13.0 % (11.6-14.8) Platelet Count 175 K/UL (150-450) Mean Platelet Volume 7.0 FL (6.5-10.1) Neutrophils (%) (Auto) 53.2 % (45.0-75.0) Lymphocytes (%) (Auto) 28.5 % (20.0-45.0) Monocytes (%) (Auto) 11.3 % (1.0-10.0) H Eosinophils (%) (Auto) 5.3 % (0.0-3.0) H Basophils (%) (Auto) 1.6 % (0.0-2.0) Prothrombin Time 11.5 SEC (9.30-11.50) Prothromb Time International Ratio 1.1 (0.9-1.1) Sodium Level 139 mEQ/L (135-145) Potassium Level 3.6 mEQ/L (3.4-4.9) Chloride Level 99 mEQ/L (98-107) Carbon Dioxide Level 25 mEQ/L (20-30) Anion Gap 15 (5-15) Blood Urea Nitrogen 8 mg/dL (7-23) Creatinine 0.7 mg/dL (0.7-1.2) Estimat Glomerular Filtration Rate > 60 mL/min (>60) Glucose Level 70 mg/dL (74-106) L Calcium Level 9.2 mg/dL (8.6-10.2) Total Bilirubin 6.3 mg/dL (0.0-1.2) H Direct Bilirubin 4.7 mg/dL (0.1-0.3) H Aspartate Amino Transf (AST/SGOT) 59 U/L (5-40) H Alanine Aminotransferase (ALT/SGPT) 45 U/L (3-41) H Alkaline Phosphatase 116 U/L (40-129) Total Protein 7.3 g/dL (6.6-8.7) Albumin 2.7 g/dL (3.5-5.2) L Globulin 4.6 g/dL Albumin/Globulin Ratio 0.5 (1.0-2.7) L Current Medications Medications (Trade) Dose Ordered Sig/Oral Route PRN Reason Start Time Stop Time Status Last Admin Dose Admin Al Hydroxide/Mg Hydroxide (Mylanta II) 30 ml EVERY 4 HOURS PRN ORAL dyspepsia 01/04/17 17:15 02/03/17 17:14 Albuterol Sulfate (Proventil) 2.5 mg Q4H PRN HHN Shortness of Breath 01/04/17 17:45 01/09/17 17:44 Ascorbic Acid (Vitamin C) 500 mg DAILY GT 01/05/17 09:00 02/04/17 08:59 01/09/17 09:44 Bisacodyl (Dulcolax) 10 mg DAILY PRN RECTAL CONSTIPATION 01/04/17 17:45 02/03/17 17:44 Cefepime HCl/ Dextrose (Maxipime/D5W) 55 ml @ 110 mls/hr EVERY 12 HOURS IVPB 01/07/17 13:00 01/14/17 12:59 01/09/17 09:34 Dextrose (Dextrose 50%) STAT PRN IV Hypoglycemia 01/04/17 17:15 02/03/17 17:14 Diltiazem HCl (Cardizem) 30 mg EVERY 6 HOURS GT 01/05/17 00:00 02/04/17 00:00 01/09/17 11:49 Diphenhydramine HCl (Benadryl) 25 mg Q6H PRN GT Itching 01/04/17 17:45 02/03/17 17:44 Docusate Sodium (Colace) 100 mg DAILY GT 01/05/17 09:00 02/04/17 08:59 01/09/17 09:33 Heparin Sodium (Porcine) (Heparin 5000 units/ml) 5,000 units EVERY 12 HOURS SUBQ 01/04/17 21:00 02/03/17 20:59 01/09/17 09:36 Levetiracetam (Keppra) 500 mg EVERY 12 HOURS GT 01/04/17 21:00 02/03/17 20:59 01/09/17 09:33 Pantoprazole 40 mg 40 mg DAILY IVP 01/07/17 09:00 02/06/17 08:59 01/09/17 09:33 Sodium Chloride (Sodium Chloride 1000ml bag) 1,000 ml @ 100 mls/hr Q10H IV 01/04/17 19:15 02/03/17 19:14 01/09/17 09:33 Zinc Sulfate 220 mg 220 mg DAILY GT 01/05/17 09:00 02/04/17 08:59 01/09/17 09:33 KERRY RUTHERFORD Jan 09, 2017 16:27
[2017-01-09 20:16] VITALS: BP 117/72
--- NOTE | 2017-01-09 23:14 | General Progress Note ---
Assessment/Plan Assessment/Plan Assessment - Leukocytosis - resolved, suspect from cooled off cholecystitis - Hepatitis C - ? chronic liver disease/fibrosis - Jaundice - beyond what is seen with cholecystitis, ? combination of acute tatum and chronic liver disease - Resp failure/trach - dysphagia/ PEG Recommendations - abx - follow LFT - surgical f/u Subjective Allergies: Coded Allergies: No Known Allergies (Unverified , 01/04/17) Subjective Feels OK no complaints tolerating TF discussed with surgery Hepatitis C (+) all other serologies negative Objective Last 24 Hour Vital Signs Date Time Temp Pulse Resp B/P Pulse Ox O2 Delivery O2 Flow Rate FiO2 01/09/17 21:00 61 01/09/17 20:16 97.5 56 21 117/72 99 Trach Collar 35 01/09/17 20:01 97 T-piece 8.0 30 01/09/17 20:01 T-piece 8.0 30 01/09/17 17:39 54 121/71 01/09/17 16:00 62 01/09/17 16:00 97.5 54 18 121/71 99 Trach Collar 35 01/09/17 13:12 98 T-piece 35 01/09/17 13:12 T-piece 10.0 35 01/09/17 12:00 97.0 57 18 116/74 99 35 01/09/17 12:00 55 01/09/17 11:49 61 115/70 01/09/17 08:00 61 01/09/17 08:00 97.0 59 17 115/70 100 35 01/09/17 06:58 98 T-piece 35 01/09/17 06:58 T-piece 10.0 35 01/09/17 06:55 63 125/74 01/09/17 04:00 97.0 63 18 125/74 100 T-piece 10.0 35 01/09/17 03:44 61 01/09/17 00:57 T-piece 10.0 35 01/09/17 00:56 100 T-piece 35 01/09/17 00:47 72 116/74 01/09/17 00:00 97.0 72 18 116/74 100 Mechanical Ventilator 10.0 35 01/08/17 23:40 60 Intake and Output 01/08/17 01/09/17 19:00 07:00 Intake Total 1405 ml 1250 ml Output Total 900 ml 1200 ml Balance 505 ml 50 ml IV Total 1255 ml 1200 ml Other 150 ml 50 ml Output Urine Total 900 ml 1200 ml Laboratory Tests 01/09/17 03:10: White Blood Count 5.9, Red Blood Count 3.85L, Hemoglobin 11.6L, Hematocrit 34.4L , Mean Corpuscular Volume 89, Mean Corpuscular Hemoglobin 30.0, Mean Corpuscular Hemoglobin Concent 33.6, Red Cell Distribution Width 13.0, Platelet Count 175, Mean Platelet Volume 7.0, Neutrophils (%) (Auto) 53.2, Lymphocytes (% ) (Auto) 28.5, Monocytes (%) (Auto) 11.3H, Eosinophils (%) (Auto) 5.3H, Basophils (%) (Auto) 1.6, Prothrombin Time 11.5, Prothromb Time International Ratio 1.1, Sodium Level 139, Potassium Level 3.6, Chloride Level 99, Carbon Dioxide Level 25, Anion Gap 15, Blood Urea Nitrogen 8, Creatinine 0.7, Estimat Glomerular Filtration Rate > 60, Glucose Level 70L, Calcium Level 9.2, Total Bilirubin 6.3H, Direct Bilirubin 4.7H, Aspartate Amino Transf (AST/SGOT) 59H, Alanine Aminotransferase (ALT/SGPT) 45H, Alkaline Phosphatase 116, Total Protein 7.3, Albumin 2.7L, Globulin 4.6, Albumin/Globulin Ratio 0.5L Height (Feet): 6 Weight (Pounds): 169 Objective Debilitate AA man NCAT supple CTA RRR Abd soft,NT, (+) GT no edema ANNIE MATHUR Jan 09, 2017 23:14
[2017-01-10 00:13] VITALS: BP 117/72
[2017-01-10 04:07] VITALS: BP 113/76
[2017-01-10 05:30] LABS: BASOPHILS % (AUTO) 2.3 % (0.0-2.0); EOSINOPHILS % (AUTO) 5.2 % (0.0-3.0); LYMPHOCYTES % (AUTO) 23.8 % (20.0-45.0); MEAN CORPUSCULAR HEMOGLOBIN 30.2 PG (27.0-31.0); MEAN CORPUSCULAR HGB CONC 33.4 G/DL (32.0-36.0); MEAN CORPUSCULAR VOLUME 90 FL (80-99); MEAN PLATELET VOLUME 6.9 FL (6.5-10.1); MONOCYTES % (AUTO) 13.1 % (1.0-10.0); NEUTROPHILS % (AUTO) 55.6 % (45.0-75.0); PLATELET COUNT 159 K/UL (150-450); RED BLOOD COUNT 3.48 M/UL (4.70-6.10); RED CELL DISTRIBUTION WIDTH 13.3 % (11.6-14.8)
[2017-01-10 05:50] LABS: ALANINE AMINOTRANSFERASE 39 U/L (3-41); ALBUMIN/GLOBULIN RATIO 0.6 (1.0-2.7); ANION GAP 16 (5-15); ASPARTATE AMINO TRANSFERASE 52 U/L (5-40); CALCIUM 8.8 mg/dL (8.6-10.2); CARBON DIOXIDE 23 mEQ/L (20-30); CHLORIDE 100 mEQ/L (98-107); CREATININE 0.6 mg/dL (0.7-1.2); GLOMERULAR FILTRATION RATE > 60 mL/min (>60); HEMOLYSIS 9; SODIUM 139 mEQ/L (135-145); TOTAL PROTEIN 6.6 g/dL (6.6-8.7)
[2017-01-10] MEDS ORDERED: KCl 10% 20 mEq/15ml liquid GT ONE (06:30)
[2017-01-10 07:00] LABS: BILIRUBIN,DIRECT 2.7 mg/dL (0.1-0.3)
[2017-01-10 08:00] VITALS: BP 108/68
[2017-01-10] MEDS: Ascorbic Acid 500mg tab GT SCH (08:45)
[2017-01-10] MEDS: Zinc Sulfate 220mg cap GT SCH (08:45)
[2017-01-10] MEDS: Docusate 100mg tablet GT SCH (08:46)
[2017-01-10] MEDS: Pantoprazole Inj IVP SCH (08:46)
[2017-01-10] MEDS: levETIRAcetam 500mg/5ml Liquid GT SCH (08:46)
[2017-01-10] MEDS: Cefepime HCl 1 GM in D5W 55 ML IVPB SCH (08:49)
[2017-01-10] MEDS: Heparin 5000 units/ml inj SUBQ SCH (08:52)
--- NOTE | 2017-01-10 10:31 | General Progress Note ---
Assessment/Plan Assessment/Plan IMPRESSION: 1. Cholecystitis. 2. Elevated liver enzymes. 3. Hepatopathy. 4. Possible cystitis. 5. Sepsis. +Bcx 6. Tachyarrhythmia 7. bacteremia 8. elevated bilirubin PLAN feeds per GI GI/GS follow up IV hydration may dc as feeds tolerated iv antibiotics ID noted dc if ok with gi and id care noted and reviewed impression, plan, and exam edited and reviewed in detail care discussed with RN Subjective ROS Limited/Unobtainable: Yes Allergies: Coded Allergies: No Known Allergies (Unverified , 01/04/17) Subjective jaundice improved further improved LOC labs improved Objective Last 24 Hour Vital Signs Date Time Temp Pulse Resp B/P Pulse Ox O2 Delivery O2 Flow Rate FiO2 01/10/17 08:00 57 01/10/17 08:00 98.1 65 20 108/68 99 T-piece 01/10/17 07:00 T-piece 8.0 30 01/10/17 07:00 98 T-piece 8.0 30 01/10/17 05:26 53 113/76 01/10/17 04:07 98.3 54 19 113/76 99 Trach Collar 01/10/17 03:55 59 01/10/17 00:27 T-piece 8.0 30 01/10/17 00:27 97 T-piece 8.0 30 01/10/17 00:13 97.3 61 20 117/72 97 Trach Collar 01/10/17 00:00 54 01/10/17 00:00 61 117/72 01/09/17 21:00 61 01/09/17 20:16 97.5 56 21 117/72 99 Trach Collar 35 01/09/17 20:01 97 T-piece 8.0 30 01/09/17 20:01 T-piece 8.0 30 01/09/17 17:39 54 121/71 01/09/17 16:00 62 01/09/17 16:00 97.5 54 18 121/71 99 Trach Collar 35 01/09/17 13:12 98 T-piece 35 01/09/17 13:12 T-piece 10.0 35 01/09/17 12:00 97.0 57 18 116/74 99 35 01/09/17 12:00 55 01/09/17 11:49 61 115/70 Intake and Output 01/09/17 01/10/17 19:00 07:00 Intake Total 1285 ml 1430 ml Output Total 1350 ml Balance 1285 ml 80 ml Free Water 100 ml 200 ml IV Total 1155 ml 855 ml Tube Feeding 30 ml 375 ml Output Urine Total 1350 ml # Voids 2 # Bowel Movements 1 Laboratory Tests 01/10/17 04:20: White Blood Count 6.0, Red Blood Count 3.48L, Hemoglobin 10.5L, Hematocrit 31.4L , Mean Corpuscular Volume 90, Mean Corpuscular Hemoglobin 30.2, Mean Corpuscular Hemoglobin Concent 33.4, Red Cell Distribution Width 13.3, Platelet Count 159, Mean Platelet Volume 6.9, Neutrophils (%) (Auto) 55.6, Lymphocytes (% ) (Auto) 23.8, Monocytes (%) (Auto) 13.1H, Eosinophils (%) (Auto) 5.2H, Basophils (%) (Auto) 2.3H, Sodium Level 139, Potassium Level 3.0L, Chloride Level 100, Carbon Dioxide Level 23, Anion Gap 16H, Blood Urea Nitrogen 10, Creatinine 0.6L, Estimat Glomerular Filtration Rate > 60, Glucose Level 92, Calcium Level 8.8, Total Bilirubin 4.5H, Direct Bilirubin 2.7H, Aspartate Amino Transf (AST/SGOT) 52H, Alanine Aminotransferase (ALT/SGPT) 39, Alkaline Phosphatase 107, Total Protein 6.6, Albumin 2.6L, Globulin 4.0, Albumin/ Globulin Ratio 0.6L Height (Feet): 6 Weight (Pounds): 169 Objective PHYSICAL EXAMINATION: GENERAL: The patient is a well-developed male, chronically ill. NECK: Supple LUNGS: With coarse breath sounds. CARDIAC: S1 and S2, irregular rate and rhythm. ABDOMEN: NABS nontender some edema jaundice better CYNTHIA PERDOMO Jan 10, 2017 10:31
--- NOTE | 2017-01-10 11:01 | General Surgery Progress Note ---
General Surgery-Progress Note Subjective Additional Comments patient seen and examined at bedside. no acute events. no complaints. no pain. no n/v/f/c. Objective Last 24 Hour Vital Signs Date Time Temp Pulse Resp B/P Pulse Ox O2 Delivery O2 Flow Rate FiO2 01/10/17 08:00 57 01/10/17 08:00 98.1 65 20 108/68 99 T-piece 01/10/17 07:00 T-piece 8.0 30 01/10/17 07:00 98 T-piece 8.0 30 01/10/17 05:26 53 113/76 01/10/17 04:07 98.3 54 19 113/76 99 Trach Collar 01/10/17 03:55 59 01/10/17 00:27 T-piece 8.0 30 01/10/17 00:27 97 T-piece 8.0 30 01/10/17 00:13 97.3 61 20 117/72 97 Trach Collar 01/10/17 00:00 54 01/10/17 00:00 61 117/72 01/09/17 21:00 61 01/09/17 20:16 97.5 56 21 117/72 99 Trach Collar 35 01/09/17 20:01 97 T-piece 8.0 30 01/09/17 20:01 T-piece 8.0 30 01/09/17 17:39 54 121/71 01/09/17 16:00 62 01/09/17 16:00 97.5 54 18 121/71 99 Trach Collar 35 01/09/17 13:12 98 T-piece 35 01/09/17 13:12 T-piece 10.0 35 01/09/17 12:00 97.0 57 18 116/74 99 35 01/09/17 12:00 55 01/09/17 11:49 61 115/70 I&O Intake and Output 01/09/17 01/10/17 19:00 07:00 Intake Total 1285 ml 1430 ml Output Total 1350 ml Balance 1285 ml 80 ml Free Water 100 ml 200 ml IV Total 1155 ml 855 ml Tube Feeding 30 ml 375 ml Output Urine Total 1350 ml # Voids 2 # Bowel Movements 1 Cardiovascular: RSR Respiratory: clear Abdomen: soft, non-tender Laboratory Tests Test 01/10/17 04:20 White Blood Count 6.0 K/UL (4.8-10.8) Red Blood Count 3.48 M/UL (4.70-6.10) L Hemoglobin 10.5 G/DL (14.2-18.0) L Hematocrit 31.4 % (42.0-52.0) L Mean Corpuscular Volume 90 FL (80-99) Mean Corpuscular Hemoglobin 30.2 PG (27.0-31.0) Mean Corpuscular Hemoglobin Concent 33.4 G/DL (32.0-36.0) Red Cell Distribution Width 13.3 % (11.6-14.8) Platelet Count 159 K/UL (150-450) Mean Platelet Volume 6.9 FL (6.5-10.1) Neutrophils (%) (Auto) 55.6 % (45.0-75.0) Lymphocytes (%) (Auto) 23.8 % (20.0-45.0) Monocytes (%) (Auto) 13.1 % (1.0-10.0) H Eosinophils (%) (Auto) 5.2 % (0.0-3.0) H Basophils (%) (Auto) 2.3 % (0.0-2.0) H Sodium Level 139 mEQ/L (135-145) Potassium Level 3.0 mEQ/L (3.4-4.9) L Chloride Level 100 mEQ/L (98-107) Carbon Dioxide Level 23 mEQ/L (20-30) Anion Gap 16 (5-15) H Blood Urea Nitrogen 10 mg/dL (7-23) Creatinine 0.6 mg/dL (0.7-1.2) L Estimat Glomerular Filtration Rate > 60 mL/min (>60) Glucose Level 92 mg/dL (74-106) Calcium Level 8.8 mg/dL (8.6-10.2) Total Bilirubin 4.5 mg/dL (0.0-1.2) H Direct Bilirubin 2.7 mg/dL (0.1-0.3) H Aspartate Amino Transf (AST/SGOT) 52 U/L (5-40) H Alanine Aminotransferase (ALT/SGPT) 39 U/L (3-41) Alkaline Phosphatase 107 U/L (40-129) Total Protein 6.6 g/dL (6.6-8.7) Albumin 2.6 g/dL (3.5-5.2) L Globulin 4.0 g/dL Albumin/Globulin Ratio 0.6 (1.0-2.7) L Assessment Post-op Diagnosis T bili continues to trend down. Atypical potential acute cholecystitis with elevated liver function tests, thickened gallbladder wall with sludge but no notable biliary obstruction. Plan for repeat HIDA as t bili trends down. Bases on findings will discuss potential need for cholecystectomy with patient. Edi Gooden Jan 10, 2017 11:01
[2017-01-10 12:00] VITALS: BP 113/67
--- NOTE | 2017-01-10 14:16 | Infectious Diseases Prog Note ---
Assessment/Plan Assessment/Plan A 1. pseudomonas sepsis 2. pseudomonas ,serratia pneumonia 3. leucocytosis improving 4. acute liver failure 5. HPN P 1. continue cefepime 6 more days 2. agree with discharge Subjective ROS Limited/Unobtainable: Yes Musculoskeletal: Reports: no symptoms Allergies: Coded Allergies: No Known Allergies (Unverified , 01/04/17) Objective Vital Signs Last 24 Hour Vital Signs Date Time Temp Pulse Resp B/P Pulse Ox O2 Delivery O2 Flow Rate FiO2 01/10/17 12:30 T-piece 8.0 30 01/10/17 12:30 96 T-piece 8.0 30 01/10/17 12:22 60 113/67 01/10/17 12:00 97.2 60 20 113/67 100 T-piece 30 01/10/17 08:00 57 01/10/17 08:00 98.1 65 20 108/68 99 T-piece 01/10/17 07:00 T-piece 8.0 30 01/10/17 07:00 98 T-piece 8.0 30 01/10/17 05:26 53 113/76 01/10/17 04:07 98.3 54 19 113/76 99 Trach Collar 01/10/17 03:55 59 01/10/17 00:27 T-piece 8.0 30 01/10/17 00:27 97 T-piece 8.0 30 01/10/17 00:13 97.3 61 20 117/72 97 Trach Collar 01/10/17 00:00 54 01/10/17 00:00 61 117/72 01/09/17 21:00 61 01/09/17 20:16 97.5 56 21 117/72 99 Trach Collar 35 01/09/17 20:01 97 T-piece 8.0 30 01/09/17 20:01 T-piece 8.0 30 01/09/17 17:39 54 121/71 01/09/17 16:00 62 01/09/17 16:00 97.5 54 18 121/71 99 Trach Collar 35 Height (Feet): 6 Weight (Pounds): 169 General Appearance: no acute distress HEENT: status post trach Respiratory/Chest: lungs clear Cardiovascular: normal rate Abdomen: soft, non tender, other - Gt feeding Extremities: no edema Neurologic/Psychiatric: alert, responsive Laboratory Tests Test 01/10/17 04:20 White Blood Count 6.0 K/UL (4.8-10.8) Red Blood Count 3.48 M/UL (4.70-6.10) L Hemoglobin 10.5 G/DL (14.2-18.0) L Hematocrit 31.4 % (42.0-52.0) L Mean Corpuscular Volume 90 FL (80-99) Mean Corpuscular Hemoglobin 30.2 PG (27.0-31.0) Mean Corpuscular Hemoglobin Concent 33.4 G/DL (32.0-36.0) Red Cell Distribution Width 13.3 % (11.6-14.8) Platelet Count 159 K/UL (150-450) Mean Platelet Volume 6.9 FL (6.5-10.1) Neutrophils (%) (Auto) 55.6 % (45.0-75.0) Lymphocytes (%) (Auto) 23.8 % (20.0-45.0) Monocytes (%) (Auto) 13.1 % (1.0-10.0) H Eosinophils (%) (Auto) 5.2 % (0.0-3.0) H Basophils (%) (Auto) 2.3 % (0.0-2.0) H Sodium Level 139 mEQ/L (135-145) Potassium Level 3.0 mEQ/L (3.4-4.9) L Chloride Level 100 mEQ/L (98-107) Carbon Dioxide Level 23 mEQ/L (20-30) Anion Gap 16 (5-15) H Blood Urea Nitrogen 10 mg/dL (7-23) Creatinine 0.6 mg/dL (0.7-1.2) L Estimat Glomerular Filtration Rate > 60 mL/min (>60) Glucose Level 92 mg/dL (74-106) Calcium Level 8.8 mg/dL (8.6-10.2) Total Bilirubin 4.5 mg/dL (0.0-1.2) H Direct Bilirubin 2.7 mg/dL (0.1-0.3) H Aspartate Amino Transf (AST/SGOT) 52 U/L (5-40) H Alanine Aminotransferase (ALT/SGPT) 39 U/L (3-41) Alkaline Phosphatase 107 U/L (40-129) Total Protein 6.6 g/dL (6.6-8.7) Albumin 2.6 g/dL (3.5-5.2) L Globulin 4.0 g/dL Albumin/Globulin Ratio 0.6 (1.0-2.7) L Current Medications Medications (Trade) Dose Ordered Sig/Oral Route PRN Reason Start Time Stop Time Status Last Admin Dose Admin Al Hydroxide/Mg Hydroxide (Mylanta II) 30 ml EVERY 4 HOURS PRN ORAL dyspepsia 01/04/17 17:15 02/03/17 17:14 Ascorbic Acid (Vitamin C) 500 mg DAILY GT 01/05/17 09:00 02/04/17 08:59 01/10/17 08:45 Bisacodyl (Dulcolax) 10 mg DAILY PRN RECTAL CONSTIPATION 01/04/17 17:45 02/03/17 17:44 Cefepime HCl/ Dextrose (Maxipime/D5W) 55 ml @ 110 mls/hr EVERY 12 HOURS IVPB 01/07/17 13:00 01/14/17 12:59 01/10/17 08:49 Dextrose (Dextrose 50%) STAT PRN IV Hypoglycemia 01/04/17 17:15 02/03/17 17:14 Diltiazem HCl 30 mg 30 mg EVERY 6 HOURS GT 01/05/17 00:00 02/04/17 00:00 01/10/17 12:22 Diphenhydramine HCl (Benadryl) 25 mg Q6H PRN GT Itching 01/04/17 17:45 02/03/17 17:44 Docusate Sodium (Colace) 100 mg DAILY GT 01/05/17 09:00 02/04/17 08:59 01/10/17 08:46 Heparin Sodium (Porcine) (Heparin 5000 units/ml) 5,000 units EVERY 12 HOURS SUBQ 01/04/17 21:00 02/03/17 20:59 01/10/17 08:52 Levetiracetam (Keppra) 500 mg EVERY 12 HOURS GT 01/04/17 21:00 02/03/17 20:59 01/10/17 08:46 Pantoprazole (Protonix) 40 mg DAILY GT 01/11/17 09:00 02/10/17 08:59 Zinc Sulfate (Zinc Sulfate) 220 mg DAILY GT 01/05/17 09:00 02/04/17 08:59 01/10/17 08:45 KERRY RUTHERFORD Jan 10, 2017 14:16
[2017-01-10 16:00] VITALS: BP 110/66
[2017-01-10 20:24] VITALS: BP 113/76
[2017-01-10] MEDS ORDERED: NS 275ml ONE (20:24)
[2017-01-10] MEDS ORDERED: Tubing IV Secondary IV ONE (20:24)
--- NOTE | 2017-01-10 22:18 | General Progress Note ---
Assessment/Plan Assessment/Plan Assessment - Leukocytosis - resolved, suspect from cooled off cholecystitis - Hepatitis C - ? chronic liver disease/fibrosis - Jaundice - beyond what is seen with cholecystitis, ? combination of acute tatum and chronic liver disease - Resp failure/trach - dysphagia/ PEG Recommendations - abx - follow LFT - surgical f/u Subjective Allergies: Coded Allergies: No Known Allergies (Unverified , 01/04/17) Subjective Feels OK no complaints tolerating TF discussed with surgery Hepatitis C (+) Objective Last 24 Hour Vital Signs Date Time Temp Pulse Resp B/P Pulse Ox O2 Delivery O2 Flow Rate FiO2 01/10/17 20:24 98.1 65 19 113/76 95 Trach Collar 01/10/17 19:40 64 01/10/17 17:30 60 110/66 01/10/17 16:00 97.5 60 20 110/66 99 T-piece 30 01/10/17 16:00 66 01/10/17 12:30 T-piece 8.0 30 01/10/17 12:30 96 T-piece 8.0 30 01/10/17 12:22 60 113/67 01/10/17 12:00 97.2 60 20 113/67 100 T-piece 30 01/10/17 12:00 63 01/10/17 08:00 57 01/10/17 08:00 98.1 65 20 108/68 99 T-piece 01/10/17 07:00 T-piece 8.0 30 01/10/17 07:00 98 T-piece 8.0 30 01/10/17 05:26 53 113/76 01/10/17 04:07 98.3 54 19 113/76 99 Trach Collar 01/10/17 03:55 59 01/10/17 00:27 T-piece 8.0 30 01/10/17 00:27 97 T-piece 8.0 30 01/10/17 00:13 97.3 61 20 117/72 97 Trach Collar 01/10/17 00:00 54 01/10/17 00:00 61 117/72 Intake and Output 01/09/17 01/10/17 19:00 07:00 Intake Total 1285 ml 1590 ml Output Total 1350 ml Balance 1285 ml 240 ml Free Water 100 ml 200 ml IV Total 1155 ml 955 ml Tube Feeding 30 ml 435 ml Output Urine Total 1350 ml # Voids 2 # Bowel Movements 1 Laboratory Tests 01/10/17 04:20: White Blood Count 6.0, Red Blood Count 3.48L, Hemoglobin 10.5L, Hematocrit 31.4L , Mean Corpuscular Volume 90, Mean Corpuscular Hemoglobin 30.2, Mean Corpuscular Hemoglobin Concent 33.4, Red Cell Distribution Width 13.3, Platelet Count 159, Mean Platelet Volume 6.9, Neutrophils (%) (Auto) 55.6, Lymphocytes (% ) (Auto) 23.8, Monocytes (%) (Auto) 13.1H, Eosinophils (%) (Auto) 5.2H, Basophils (%) (Auto) 2.3H, Sodium Level 139, Potassium Level 3.0L, Chloride Level 100, Carbon Dioxide Level 23, Anion Gap 16H, Blood Urea Nitrogen 10, Creatinine 0.6L, Estimat Glomerular Filtration Rate > 60, Glucose Level 92, Calcium Level 8.8, Total Bilirubin 4.5H, Direct Bilirubin 2.7H, Aspartate Amino Transf (AST/SGOT) 52H, Alanine Aminotransferase (ALT/SGPT) 39, Alkaline Phosphatase 107, Total Protein 6.6, Albumin 2.6L, Globulin 4.0, Albumin/ Globulin Ratio 0.6L Height (Feet): 6 Weight (Pounds): 169 Objective Debilitate AA man NCAT supple CTA RRR Abd soft,NT, (+) GT no edema ANNIE MATHUR Jan 10, 2017 22:18
--- NOTE | 2017-01-11 08:33 | Discharge Summary ---
Discharge Summary Hospital Course Date of Admission Jan 04, 2017 at 10:49 Date of Discharge Jan 10, 2017 at 20:25 Admitting Diagnosis supraventricular trachycardia HPI Morgan Stevenson is a 61 year old male who was admitted on Jan 04, 2017 at 10:49 for Supraventricular Tachycardia Hospital Course [id number] Discharge Discharge Disposition Patient was discharged to SNF/Subacute Facility(03) Discharge Diagnoses: Jazmin Rojas NP Jan 11, 2017 08:33
[2017-01-11] MEDS ORDERED: Pantoprazole 40mg pkt GT SCH (09:00)
--- NOTE | 2017-01-12 03:18 | Discharge Summary 2 SIG ---
DATE OF ADMISSION: 01/04/2017 DATE OF DISCHARGE: 01/10/2017 CONSULTANTS: 1. Colin Blakely M.D. 2. Mary Anne Ruiz M.D. 3. Samuel Cabello M.D. BRIEF HOSPITAL COURSE: The patient is a 61-year-old male, who presented to ED, complaining of chest pain and palpitations. On evaluation, the patient was found to be in SVT, heart rate was 160 on . He underwent synchronous cardioversion and was given IV adenosine. The patient required synchronized cardioversion because of hypotension. Blood pressure was 90/60. There was no response to electricity. The patient converted to sinus tachycardia after adenosine 6 mg and 12 mg. He was also found to be septic with leukocytosis, WBC elevated to 38. LFTs were elevated as well as bilirubin. Chest x-ray showed no pneumonia. He had CT scan of the abdomen with possible cholecystitis and the patient was admitted for further evaluation and workup. He was placed on n.p.o., and was followed by GI and surgical team. An abdominal ultrasound was ordered and showed gallbladder wall thickening with sludge and stones, no evidence of bile duct obstruction, and presence of hepatosplenomegaly. He underwent HIDA scan and showed acute hepatocellular failure versus acute bile duct obstruction, and examination was nondiagnostic for cystic duct obstruction or cholecystitis. Abdominal MRI showed cholelithiasis, gallbladder sludge, gallbladder wall edema, acute cholecystitis. Liver and spleen nuclear scan showed normal-appearing liver. He was also followed by infectious disease specialist and was given initially vancomycin, which was later discontinued and was given Zosyn. Blood culture showed growth of Pseudomonas. Sputum culture showed growth of Pseudomonas serratia. Zosyn was discontinued and was given cefepime. Urine culture did not isolate any growth. He was given IV hydration and electrolytes were replaced. Leukocytosis resolved. Diet was resumed and had been tolerating tube feeding. Hepatitis panel significant for hepatitis C. The patient was [facility] to [facility] facility. FINAL DIAGNOSES: 1. Pseudomonas sepsis. 2. Pseudomonas pneumonia. 3. Acute cholecystitis. 4. Tachyarrhythmia, status post electrical and chemical cardioversion. 5. Hepatitis C. 6. Chronic respiratory failure, on tracheostomy and not on ventilator. Clifton Marin M.D. I have been assigned to dictate discharge summary on this account and I was not involved in the patient's management. Jazmin Rojas N.P. DR: Pillo JOB#: [id number] CC:
== END 2017-01-10 20:25 | DRG 720 ==
LOC: ENRESERVDT → ENRESERVTM → EDBD 09:20 → EMR 09:36 → 2W 10:49 → EDBEDREQ 11:22
PROC: 5A2204Z Restoration of Cardiac Rhythm, Single (ICD-10-PCS; principal; 2017-01-04)
DX: A41.52 Sepsis due to Pseudomonas (principal); K72.00 Acute and subacute hepatic failure without coma; J15.1 Pneumonia due to Pseudomonas; J96.10 Chronic respiratory failure, unspecified whether with hypoxia or hypercapnia; Z43.0 Encounter for attention to tracheostomy; K80.00 Calculus of gallbladder with acute cholecystitis without obstruction; I95.9 Hypotension, unspecified; I47.1 Supraventricular tachycardia; G40.909 Epilepsy, unspecified, not intractable, without status epilepticus; Z43.1 Encounter for attention to gastrostomy; B19.20 Unspecified viral hepatitis C without hepatic coma; R13.10 Dysphagia, unspecified; K21.9 Gastro-esophageal reflux disease without esophagitis; I10 Essential (primary) hypertension; I69.351 Hemiplegia and hemiparesis following cerebral infarction affecting right dominant side; N30.90 Cystitis, unspecified without hematuria
CPT/HCPCS: 36415; 70260; 71010; 74177; 74181; 76700; 78215; 78266; 80053; 81003; 82248; 82550; 82553; 84484; 85007; 85025; 85610; 86308; 86695; 86705; 86709; 86803; 87040; 87070; 87086; 87181; 87205; 87340; 87496; 92960; 93005; 94760; J2250

== ENCOUNTER 2017-03-30 18:21 | Inpatient (IN) | payer OTHER ==
[~2017-03-30] VITALS: Ht 175.3 cm; Wt 78.9 kg
[~2017-03-30 18:21] MED LIST: ACETAMINOPHEN325 M1 GT; ALBUTEROL2.5 MG/3 M INH; AMBIEN5 MG ORAL; BENADRYL A12.5 MG/5 GT; COLACE100 MG GT; DULCOLAX10 MG RC; KEPPRA LIQ100 MG/1 M GT; OMEPRAZOLE10 M1 GT; OMEPRAZOLE40 M1 GT; PROMOD946 ML GT; VITAMIN C500 M1 GT; ZINC50 M1 GT
[2017-03-30] MEDS ORDERED: Adenosine 6mg/2ml Inj IVP ONE (18:45)
[2017-03-30] MEDS ORDERED: Acetaminophen 650mg/20.3ml GT PRN (19:00)
--- NOTE | 2017-03-30 19:03 | Emergency Room Report ---
History of Present Illness General Chief Complaint: Fever Source: Patient, Medical Record Present Illness HPI Patient is a 61-year-old male brought in by EMS after increased heart rate at longterm. Patient noted to have fever. He was noted to have a tachycardia with a heart rate greater than 141. Patient noted be nonverbal. Patient is tracheostomy dependent. He had prior brain surgery. The patient been given Tylenol by longterm prior to being sent. The patient had previous episodes of supraventricular tachycardia which responded to adenosine. Allergies: Coded Allergies: No Known Allergies (Unverified , 01/04/17) Patient History Past Medical History: old chart reviewed Past Surgical History: other - neurosurgery Reviewed Nursing Documentation: PMH: Agreed, PSxH: Agreed Nursing Documentation-PMH Past Medical History: No History, Except For Hx Cardiac Problems: Yes Hx Hypertension: Yes Hx Pacemaker: No - brain surgery Hx Cancer: No Hx Gastrointestinal Problems: No Hx Neurological Problems: Yes Hx Cerebrovascular Accident: Yes Hx Seizures: Yes Hx Neurologic Surgery: Yes - Craniotomy Hx Brain Shunt: Yes - Ventriculostomy Review of Systems All Other Systems: limited - by mental status Physical Exam Vital Signs Date Time Temp Pulse Resp B/P Pulse Ox O2 Delivery O2 Flow Rate FiO2 03/30/17 18:15 101.8 134 24 113/62 98 Trach Collar 4.0 Sp02 EP Interpretation: reviewed, normal General Appearance: normal inspection, well appearing, alert, mild distress Head: atraumatic ENT: normal ENT inspection, hearing grossly normal, normal voice Neck: normal inspection, full range of motion, supple, no bony tend Respiratory: normal inspection, lungs clear, normal breath sounds, no respiratory distress, no retraction, no wheezing Cardiovascular #1: no edema Gastrointestinal: normal bowel sounds, non tender, soft, no guarding, no hernia , other - gtube Genitourinary: no CVA tenderness Musculoskeletal: normal inspection, back normal, normal range of motion Neurologic: normal inspection, alert, responsive, motor weakness Psychiatric: judgement/insight normal, mood/affect normal Skin: normal inspection, normal color, no rash Procedures Critical Care Time Critical Care Time Patient had a critical medical condition which untreated could potentially result in life or limb threatening injury. Total critical care time excluding procedures approximately 45 minutes. Medical Decision Making Diagnostic Impression: Primary Impression: Fever Additional Impressions: Sepsis Sinus tachycardia ER Course Patient presented for rapid heartbeat. The differential diagnosis included was not limited to arrhythmia, thyroid storm, sepsis, anemia, myocardial infarction , alcohol withdrawal, stimulant abuse, caffeine overdose among others. Because of complexity of patient's case laboratory testing and imaging studies were ordered. The patient was noted to be febrile with a rapid heartbeat. EKG interpreted by me showed supraventricular tachycardia with a rate of [address] or T wave changes. Patient was noted to have some right bundle-branch block, QTC was 560.The patient was given IV adenosine x1. The patient had brief slowing of heart rate with rhythm strip which subsequently appeared to show show sinus tachycardia. The patient started on IV fluids with improvement in his heart rate. Patient given IV antibiotics. Dr. Clifton Marin was contacted for inpatient management due to primary care physician. Labs Test 03/30/17 19:00 03/30/17 19:08 03/30/17 19:47 03/31/17 04:13 Differential Total Cells Counted 100 Neutrophils % (Manual) 69 % (45-75) Lymphocytes % (Manual) 6 % (20-45) Monocytes % (Manual) 16 % (1-10) Eosinophils % (Manual) 3 % (0-3) Basophils % (Manual) 0 % (0-2) Band Neutrophils 6 % (0-8) Platelet Estimate Adequate Platelet Morphology Normal Red Blood Cell Morphology Normal Total Bilirubin 0.6 mg/dL (0.0-1.2) Aspartate Amino Transf (AST/SGOT) 52 U/L (5-40) Alanine Aminotransferase (ALT/SGPT) 41 U/L (3-41) Alkaline Phosphatase 104 U/L (40-129) Total Creatine Kinase 67 U/L (38-174) Creatine Kinase MB < 1.5 ng/mL (< 6.7) Creatine Kinase MB Relative Index Troponin I < 0.30 ng/mL (<=0.30) Pro-B-Type Natriuretic Peptide 42 pg/mL (0-125) Total Protein 8.1 g/dL (6.6-8.7) Albumin 4.0 g/dL (3.5-5.2) Globulin 4.1 g/dL Albumin/Globulin Ratio 0.9 (1.0-2.7) Urine Color Pale yellow Urine Appearance Clear Urine pH 7 (4.5-8.0) Urine Specific [place] 1.010 (1.005-1.035) Urine Protein Negative (NEGATIVE) Urine Glucose (UA) Negative (NEGATIVE) Urine Ketones Negative (NEGATIVE) Urine Occult Blood Negative (NEGATIVE) Urine Nitrite Negative (NEGATIVE) Urine Bilirubin Negative (NEGATIVE) Urine Urobilinogen Normal MG/DL (0.0-1.0) Urine Leukocyte Esterase Negative (NEGATIVE) Lactic Acid Level 1.60 mmol/L (0.66-2.22) White Blood Count 24.9 K/UL (4.8-10.8) Red Blood Count 3.83 M/UL (4.70-6.10) Hemoglobin 11.9 G/DL (14.2-18.0) Hematocrit 35.9 % (42.0-52.0) Mean Corpuscular Volume 94 FL (80-99) Mean Corpuscular Hemoglobin 31.1 PG (27.0-31.0) Mean Corpuscular Hemoglobin Concent 33.2 G/DL (32.0-36.0) Red Cell Distribution Width 11.2 % (11.6-14.8) Platelet Count 219 K/UL (150-450) Mean Platelet Volume 7.7 FL (6.5-10.1) Neutrophils (%) (Auto) % (45.0-75.0) Lymphocytes (%) (Auto) % (20.0-45.0) Monocytes (%) (Auto) % (1.0-10.0) Eosinophils (%) (Auto) % (0.0-3.0) Basophils (%) (Auto) % (0.0-2.0) Sodium Level 145 mEQ/L (135-145) Potassium Level 4.0 mEQ/L (3.4-4.9) Chloride Level 106 mEQ/L (98-107) Carbon Dioxide Level 26 mEQ/L (20-30) Anion Gap 13 (5-15) Blood Urea Nitrogen 15 mg/dL (7-23) Creatinine 0.7 mg/dL (0.7-1.2) Estimat Glomerular Filtration Rate > 60 mL/min (>60) Glucose Level 113 mg/dL (74-106) Calcium Level 9.2 mg/dL (8.6-10.2) EKG Diagnostic Results Rate: tachycardiac Rhythm: NSR ST Segments: no acute changes ASA given to the pt in ED: No Rhythm Strip Diag. Results EP Interpretation: yes Rhythm: NSR, no PVC's, no ectopy Last Vital Signs Date Time Temp Pulse Resp B/P Pulse Ox O2 Delivery O2 Flow Rate FiO2 03/30/17 18:19 101.8 140 20 94/76 99 Trach Collar 4.0 Status: improved Disposition: ADMITTED INPATIENT Condition: Jose Blackwell Mar 30, 2017 19:03
[2017-03-30 19:12] LABS: MEAN CORPUSCULAR HEMOGLOBIN 32.3 PG (27.0-31.0); MEAN CORPUSCULAR HGB CONC 34.8 G/DL (32.0-36.0); MEAN CORPUSCULAR VOLUME 93 FL (80-99); PLATELET COUNT 227 K/UL (150-450)
[2017-03-30 19:15] LABS: WHITE BLOOD COUNT 25.3 K/UL (4.8-10.8)
[2017-03-30] MEDS ORDERED: Cefepime HCl 2 GM in D5W 110 ML IVPB ONE (19:15)
[2017-03-30] MEDS ORDERED: metroNIDAZOLE 500mg 100 ML IVPB ONE (19:15)
[2017-03-30 19:19] VITALS: BP 111/61
[2017-03-30 19:31] LABS: TROPONIN I < 0.30 ng/mL (<=0.30)
[2017-03-30 19:32] LABS: CHLORIDE 98 mEQ/L (98-107); POTASSIUM 4.3 mEQ/L (3.4-4.9); SODIUM 138 mEQ/L (135-145)
[2017-03-30 19:34] LABS: ALANINE AMINOTRANSFERASE 41 U/L (3-41); ALBUMIN/GLOBULIN RATIO 0.9 (1.0-2.7); ANION GAP 15 (5-15); ASPARTATE AMINO TRANSFERASE 52 U/L (5-40); CALCIUM 9.7 mg/dL (8.6-10.2); CARBON DIOXIDE 25 mEQ/L (20-30); GLOMERULAR FILTRATION RATE > 60 mL/min (>60); HEMOLYSIS 26; TOTAL PROTEIN 8.1 g/dL (6.6-8.7)
[2017-03-30] MEDS ORDERED: Cefepime 2gm ONE (19:39)
[2017-03-30 19:42] LABS: CKMB < 1.5 ng/mL (< 6.7)
[2017-03-30 19:48] VITALS: BP 116/59
[2017-03-30 20:06] LABS: APPEARANCE,URINE CLEAR; KETONES,URINE NEGATIVE (NEGATIVE); LEUKOCYTE ESTERASE ,URINE NEGATIVE (NEGATIVE); NITRITE,URINE NEGATIVE (NEGATIVE); PH,URINE 7 (4.5-8.0); PROTEIN,URINE NEGATIVE (NEGATIVE); UROBILINOGEN,URINE NORMAL MG/DL (0.0-1.0)
[2017-03-30 20:41] LABS: BAND NEUTROPHILS % (MANUAL) 6 % (0-8); BASOPHILS % (MANUAL) 0 % (0-2); EOSINOPHILS % (MANUAL) 3 % (0-3); LYMPHOCYTES % (MANUAL) 6 % (20-45); NEUTROPHILS % (MANUAL) 69 % (45-75); PLATELET ESTIMATE ADEQUATE; PLATELET MORPHOLOGY NORMAL; TOTAL CELLS COUNTED 100
[2017-03-30 21:27] VITALS: BP 102/62
[2017-03-30] MEDS ORDERED: ATORVASTATIN CA40 MG GT (22:01)
[2017-03-30] MEDS ORDERED: ASPIRIN81 MG GT (22:01)
[2017-03-31] VITALS (7 sets, daily range): BP systolic 116–149; BP diastolic 74–89
[2017-03-31] MEDS ORDERED: Albuterol ud Inhalation HHN PRN
[2017-03-31] MEDS ORDERED: Acetaminophen 650mg/20.3ml GT PRN ×2 (00:01→00:46)
[2017-03-31] MEDS ORDERED: Milk of Magnesia 30ml Ud GT PRN (01:00)
[2017-03-31] MEDS ORDERED: Fleet's Enema 133ml RECTAL PRN (01:00)
[2017-03-31] MEDS ORDERED: Vancomycin 1gm/D5W 275ml IVPB SCH ×4 (05:00→15:00)
[2017-03-31 05:19] LABS: MEAN CORPUSCULAR HEMOGLOBIN 31.1 PG (27.0-31.0); MEAN CORPUSCULAR HGB CONC 33.2 G/DL (32.0-36.0); MEAN CORPUSCULAR VOLUME 94 FL (80-99); MEAN PLATELET VOLUME 7.7 FL (6.5-10.1); PLATELET COUNT 219 K/UL (150-450); RED BLOOD COUNT 3.83 M/UL (4.70-6.10); RED CELL DISTRIBUTION WIDTH 11.2 % (11.6-14.8)
[2017-03-31 05:27] LABS: ANION GAP 13 (5-15); CALCIUM 9.2 mg/dL (8.6-10.2); CARBON DIOXIDE 26 mEQ/L (20-30); CHLORIDE 106 mEQ/L (98-107); CREATININE 0.7 mg/dL (0.7-1.2); GLOMERULAR FILTRATION RATE > 60 mL/min (>60); HEMOLYSIS 0; SODIUM 145 mEQ/L (135-145)
[2017-03-31 05:39] LABS: WHITE BLOOD COUNT 24.9 K/UL (4.8-10.8)
[2017-03-31] MEDS ORDERED: Vancomycin 1gm inj IVPB ONE (05:40)
[2017-03-31] MEDS ORDERED: Zosyn 3.375gm inj ONE (05:41)
[2017-03-31 07:26] LABS: ABG BASE EXCESS 2.2; ABG PCO2 40.1 mmHg (35.0-45.0)
[2017-03-31] MEDS: Piperacillin/Tazobactam 3.375 GM in D5W 110 ML IVPB SCH ×3 (07:36→21:00)
[2017-03-31 08:33] LABS: BAND NEUTROPHILS % (MANUAL) 0 % (0-8); BASOPHILS % (MANUAL) 0 % (0-2); EOSINOPHILS % (MANUAL) 4 % (0-3); HYPOCHROMASIA 1+; LYMPHOCYTES % (MANUAL) 7 % (20-45); NEUTROPHILS % (MANUAL) 75 % (45-75); PLATELET ESTIMATE ADEQUATE; PLATELET MORPHOLOGY NORMAL; TOTAL CELLS COUNTED 100
[2017-03-31] MEDS ORDERED: Docusate 100mg cap ORAL SCH (09:00)
--- NOTE | 2017-03-31 09:37 | History & Physical ---
History and Physical History & Physicial Present Illness HPI Patient is a 61-year-old male brought in by EMS with noted tachycardia up to 140 from the snf. Patient noted to have a fever as well. Patient noted be nonverbal. Patient is tracheostomy dependent. He had prior brain surgery. The patient been given Tylenol by snf prior to being sent. The patient had any episode of supraventricular tachycardia which responded to adenosine. Allergies: No Known Allergies (Unverified , 01/04/17) Past Medical History: reviewed Past Surgical History: craniotomy Reviewed of systems: unable Physical exam WDWN NAD trach clear breath sounds bilaterally without rhonchi or wheeze [id number] without MRG NABS nontender no HSM GT no CCE focal Labs Test 03/30/17 19:00 03/30/17 19:08 03/30/17 19:47 03/31/17 04:13 White Blood Count 25.3 K/UL (4.8-10.8) 24.9 K/UL (4.8-10.8) Red Blood Count 4.20 M/UL (4.70-6.10) 3.83 M/UL (4.70-6.10) Hemoglobin 13.6 G/DL (14.2-18.0) 11.9 G/DL (14.2-18.0) Hematocrit 38.9 % (42.0-52.0) 35.9 % (42.0-52.0) Mean Corpuscular Volume 93 FL (80-99) 94 FL (80-99) Mean Corpuscular Hemoglobin 32.3 PG (27.0-31.0) 31.1 PG (27.0-31.0) Mean Corpuscular Hemoglobin Concent 34.8 G/DL (32.0-36.0) 33.2 G/DL (32.0-36.0) Red Cell Distribution Width 11.0 % (11.6-14.8) 11.2 % (11.6-14.8) Platelet Count 227 K/UL (150-450) 219 K/UL (150-450) Mean Platelet Volume 8.0 FL (6.5-10.1) 7.7 FL (6.5-10.1) Neutrophils (%) (Auto) % (45.0-75.0) % (45.0-75.0) Lymphocytes (%) (Auto) % (20.0-45.0) % (20.0-45.0) Monocytes (%) (Auto) % (1.0-10.0) % (1.0-10.0) Eosinophils (%) (Auto) % (0.0-3.0) % (0.0-3.0) Basophils (%) (Auto) % (0.0-2.0) % (0.0-2.0) Differential Total Cells Counted 100 100 Neutrophils % (Manual) 69 % (45-75) 75 % (45-75) Lymphocytes % (Manual) 6 % (20-45) 7 % (20-45) Monocytes % (Manual) 16 % (1-10) 14 % (1-10) Eosinophils % (Manual) 3 % (0-3) 4 % (0-3) Basophils % (Manual) 0 % (0-2) 0 % (0-2) Band Neutrophils 6 % (0-8) 0 % (0-8) Platelet Estimate Adequate Adequate Platelet Morphology Normal Normal Red Blood Cell Morphology Normal Sodium Level 138 mEQ/L (135-145) 145 mEQ/L (135-145) Potassium Level 4.3 mEQ/L (3.4-4.9) 4.0 mEQ/L (3.4-4.9) Chloride Level 98 mEQ/L (98-107) 106 mEQ/L (98-107) Carbon Dioxide Level 25 mEQ/L (20-30) 26 mEQ/L (20-30) Anion Gap 15 (5-15) 13 (5-15) Blood Urea Nitrogen 23 mg/dL (7-23) 15 mg/dL (7-23) Creatinine 1.0 mg/dL (0.7-1.2) 0.7 mg/dL (0.7-1.2) Estimat Glomerular Filtration Rate > 60 mL/min (>60) > 60 mL/min (>60) Glucose Level 131 mg/dL (74-106) 113 mg/dL (74-106) Lactic Acid Level 1.80 mmol/L (0.66-2.22) 1.60 mmol/L (0.66-2.22) Calcium Level 9.7 mg/dL (8.6-10.2) 9.2 mg/dL (8.6-10.2) Total Bilirubin 0.6 mg/dL (0.0-1.2) Aspartate Amino Transf (AST/SGOT) 52 U/L (5-40) Alanine Aminotransferase (ALT/SGPT) 41 U/L (3-41) Alkaline Phosphatase 104 U/L (40-129) Total Creatine Kinase 67 U/L (38-174) Creatine Kinase MB < 1.5 ng/mL (< 6.7) Creatine Kinase MB Relative Index Troponin I < 0.30 ng/mL (<=0.30) Pro-B-Type Natriuretic Peptide 42 pg/mL (0-125) Total Protein 8.1 g/dL (6.6-8.7) Albumin 4.0 g/dL (3.5-5.2) Globulin 4.1 g/dL Albumin/Globulin Ratio 0.9 (1.0-2.7) Urine Color Pale yellow Urine Appearance Clear Urine pH 7 (4.5-8.0) Urine Specific [place] 1.010 (1.005-1.035) Urine Protein Negative (NEGATIVE) Urine Glucose (UA) Negative (NEGATIVE) Urine Ketones Negative (NEGATIVE) Urine Occult Blood Negative (NEGATIVE) Urine Nitrite Negative (NEGATIVE) Urine Bilirubin Negative (NEGATIVE) Urine Urobilinogen Normal MG/DL (0.0-1.0) Urine Leukocyte Esterase Negative (NEGATIVE) Hypochromasia 1+ Test 03/31/17 07:14 Arterial Blood pH 7.430 (7.350-7.450) Arterial Blood Partial Pressure CO2 40.1 mmHg (35.0-45.0) Arterial Blood Partial Pressure O2 207.6 mmHg (75.0-100.0) Arterial Blood HCO3 26.5 mmol/L (22.0-26.0) Arterial Blood Oxygen Saturation 99.0 % (92.0-98.0) Arterial Blood Base Excess 2.2 Bulmaro Test IMPRESSION Leukocytosis possible sepsis prior craniotomy focal weakness PSVT PLAN care noted IV antibiotics respiratory care trach care SNF meds supportive care suction no wean oxygen therapy prognosis guarded CYNTHIA PERDOMO Mar 31, 2017 09:37
[2017-03-31] MEDS: Aspirin EC 81mg tab ORAL SCH (10:04)
[2017-03-31] MEDS: levETIRAcetam 500mg/5ml Liquid GT SCH ×2 (10:04→21:00)
[2017-03-31] MEDS: Ascorbic Acid 500mg tab GT SCH (10:04)
[2017-03-31] MEDS ORDERED: Tubing IV Secondary IV ONE (13:55)
[2017-03-31] MEDS ORDERED: D5W 275ml ONE (13:55)
[2017-03-31] MEDS: Vancomycin 1gm/D5W 275ml IVPB SCH ×2 (18:02)
[2017-03-31] MEDS: Atorvastatin 80mg tab GT SCH (21:00)
[2017-04-01] MEDS: Vancomycin 1gm/D5W 275ml IVPB SCH ×4 (02:04→10:01)
[2017-04-01 04:00] VITALS: BP 147/91
[2017-04-01] MEDS: Piperacillin/Tazobactam 3.375 GM in D5W 110 ML IVPB SCH ×3 (05:16→21:59)
[2017-04-01 08:00] VITALS: BP 139/85
--- NOTE | 2017-04-01 08:13 | General Progress Note ---
Assessment/Plan Assessment/Plan IMPRESSION Leukocytosis possible sepsis prior craniotomy focal weakness PSVT PLAN care noted IV antibiotics respiratory care trach care SNF meds supportive care follow up labs cultures negative so far suction no wean oxygen therapy prognosis guarded Subjective Allergies: Coded Allergies: No Known Allergies (Unverified , 01/04/17) Subjective care noted vital signs ok Objective Last 24 Hour Vital Signs Date Time Temp Pulse Resp B/P Pulse Ox O2 Delivery O2 Flow Rate FiO2 04/01/17 05:43 80 147/91 04/01/17 04:00 76 04/01/17 04:00 97.6 80 18 147/91 99 T-piece 8.0 40 04/01/17 04:00 8.0 40 04/01/17 01:04 T-piece 8.0 40 04/01/17 01:03 98 T-piece 8.0 40 04/01/17 00:10 76 138/89 04/01/17 00:00 78 04/01/17 00:00 8.0 40 03/31/17 23:33 97.2 76 17 138/89 99 T-piece 8.0 40 03/31/17 20:00 97.5 80 20 149/87 99 T-piece 8.0 40 03/31/17 20:00 76 03/31/17 20:00 8.0 40 03/31/17 18:45 T-piece 8.0 40 03/31/17 18:45 96 T-piece 8.0 40 03/31/17 18:44 81 20 T-piece 8.0 40 03/31/17 18:02 73 136/85 03/31/17 16:00 8.0 40 03/31/17 16:00 80 03/31/17 16:00 97.7 73 20 136/85 97 T-piece 8.0 40 03/31/17 14:44 81 116/75 03/31/17 13:48 T-piece 8.0 40 03/31/17 13:48 96 T-piece 8.0 40 03/31/17 12:00 81 03/31/17 12:00 8.0 40 03/31/17 12:00 97.5 81 22 116/75 97 T-piece 8.0 40 03/31/17 08:25 98 T-piece 8.0 40 7/9/17 08:25 T-piece 8.0 40 03/31/17 08:25 87 20 T-piece 8.0 40 Intake and Output 03/31/17 04/01/17 19:00 07:00 Intake Total 1863.000 ml 2278.624 ml Output Total 1400 ml Balance 463.000 ml 2278.624 ml Free Water 200 ml 300 ml IV Total 1513.000 ml 1638.624 ml Tube Feeding 90 ml 340 ml Other 60 ml Output Urine Total 1400 ml # Voids 3 # Bowel Movements 1 4 Height (Feet): 5 Height (Inches): 9.00 Weight (Pounds): 174 Objective WDWN NAD clear breath sounds bilaterally without rhonchi or wheeze [id number] without MRG NABS nontender no HSM no CCE focal weakness off vent trach and gt in place CYNTHIA PERDOMO Apr 01, 2017 08:13
[2017-04-01] MEDS: levETIRAcetam 500mg/5ml Liquid GT SCH ×2 (09:02→20:27)
[2017-04-01] MEDS: Aspirin EC 81mg tab ORAL SCH (09:02)
[2017-04-01] MEDS: Ascorbic Acid 500mg tab GT SCH (09:02)
[2017-04-01 09:48] LABS: EOSINOPHILS % (AUTO) 8.4 % (0.0-3.0); LYMPHOCYTES % (AUTO) 17.6 % (20.0-45.0); MEAN CORPUSCULAR HEMOGLOBIN 31.1 PG (27.0-31.0); MEAN CORPUSCULAR HGB CONC 33.3 G/DL (32.0-36.0); MEAN CORPUSCULAR VOLUME 94 FL (80-99); MEAN PLATELET VOLUME 7.9 FL (6.5-10.1); MONOCYTES % (AUTO) 12.4 % (1.0-10.0); NEUTROPHILS % (AUTO) 60.7 % (45.0-75.0); PLATELET COUNT 206 K/UL (150-450); RED BLOOD COUNT 4.17 M/UL (4.70-6.10); RED CELL DISTRIBUTION WIDTH 11.3 % (11.6-14.8); WHITE BLOOD COUNT 8.8 K/UL (4.8-10.8)
[2017-04-01 09:56] LABS: ANION GAP 13 (5-15); CALCIUM 9.7 mg/dL (8.6-10.2); CARBON DIOXIDE 26 mEQ/L (20-30); CHLORIDE 103 mEQ/L (98-107); CREATININE 0.7 mg/dL (0.7-1.2); GLOMERULAR FILTRATION RATE > 60 mL/min (>60); HEMOLYSIS 12; POTASSIUM 3.9 mEQ/L (3.4-4.9); SODIUM 142 mEQ/L (135-145)
[2017-04-01] MEDS: Docusate 100mg/10ml Liq GT SCH (10:01)
--- NOTE | 2017-04-01 10:17 | Diagnostic Imaging Report ---
Indications: Shortness of breath Technique: Portable AP chest Findings: Comparison: 01/04/17 Defibrillator patch is again noted overlying the left hemithorax. Heart size, pulmonary vasculature remain within normal limits. Lungs and pleura remain grossly clear. Elongation of the thoracic aorta has apparently increased, the patient appears rotated. IMPRESSION: Apparent increase in size of aortic silhouette likely projectional due to patient rotation. Retroaortic disease not excludable. Repeat imaging with optimization of technique recommended. If clinically indicated, however, consider thoracic CT angiogram for further evaluation. No other evidence of acute cardiopulmonary disease, unchanged
--- NOTE | 2017-04-01 10:26 | Diagnostic Imaging Report ---
Indications: Shortness of breath Technique: Portable AP chest Findings: Comparison: 72,017 Cardiac silhouette remains normal in size. Pulmonary vasculature remains within normal limits. Pulmonary inflation has decreased. Linear density has developed in right midlung. Visualized portions of lungs and pleura remain otherwise clear. Aortic arch calcification and elongation, tracheostomy tube again noted.. IMPRESSION: Development of subsegmental atelectasis in right midlung with decreased pulmonary inflation No other evidence of acute disease, unchanged Stable chronic changes as described
[2017-04-01] MEDS ORDERED: LORazepam Inj 2mg/ml 1ml IV PRN (11:00)
[2017-04-01 11:47] LABS: OTHERS PATHOLOGIST COMMENT
[2017-04-01 12:00] VITALS: BP 135/83
--- NOTE | 2017-04-01 14:28 | Diagnostic Imaging Report ---
APPROVED REPORT CPT Code: 08516 Present Symptoms Comments: R/O DVT BILATERAL: Imaging reveals a patent deep venous system bilaterally. There is no evidence of thrombus within the femoral, popliteal or tibial segments. The greater saphenous veins are also within normal limits. Doppler indicates normal spontaneous flow within these segments.
[2017-04-01 16:00] VITALS: BP 138/87
[2017-04-01] MEDS ORDERED: Tubing IV Secondary IV ONE (16:39)
[2017-04-01] MEDS ORDERED: NS 275ml ONE (16:39)
[2017-04-01] MEDS ORDERED: Vancomycin 1250mg/D5W 275ml IVPB SCH ×4 (18:00→20:00)
[2017-04-01 20:04] VITALS: BP 157/90
[2017-04-01] MEDS: Vancomycin 1250mg/D5W 250ml 250 ML IVPB SCH (20:26)
[2017-04-01] MEDS: Atorvastatin 80mg tab GT SCH (20:27)
[2017-04-02] VITALS: BP 129/85
--- NOTE | 2017-04-02 01:05 | Wound Care Consultation ---
Wound Assessment Wound Assessment #1: Wound Number: #1 Wound Present on Admission: Yes New Wound: No Status Change of Wound: No Wound Location Body Site Modif: right Wound Location Body Site: buttocks Wound Type: pressure ulcer Prerna Test: Does not Prerna Pressure Ulcer Stage: III Rashes: Systemic Rash (Allergy) Wound Thickness: Full Thickness Wound Length: 0.8 Wound Width: 0.5 Wound Depth: 0.3 Percent of Wound [place]/Red: 100 Wound Drainage Description: Serosanguineous Wound Drainage Amount: Moderate Wound Drainage Odor: Mild Odor Tissue Surrounding Wound: Intact Wound General Appearance: Reddened, Draining Wound Assessment #2: Wound Number: #2 Wound Present on Admission: Yes New Wound: No Status Change of Wound: No Wound Location Body Site Modif: left, upper Wound Location Body Site: back Wound Type: lesion-etiology unknown Prerna Test: Does not Prerna Wound Thickness: Full Thickness Wound Length: 1.5 Wound Width: 1.5 Wound Depth: utd Percent of Wound Bed Yellow/Wh: 100 Wound Drainage Description: Serosanguineous Wound Drainage Amount: Moderate Wound Drainage Odor: None/Absent Tissue Surrounding Wound: Intact Wound General Appearance: Draining Wound Assessment #3: Wound Number: #3 Wound Present on Admission: Yes New Wound: No Status Change of Wound: No Wound Location Body Site: other Wound Type: other - dry and flaky skin Wound Drainage Amount: None Wound Drainage Odor: None/Absent Tissue Surrounding Wound: Intact Wound Comment #1 Right buttock stage III pressure ulcer #2 Left upper back open wound etiology unknown #3 Dry skin noted mainly on both lower and upper extremity Recommendation -Right buttock stage III pressure ulcer Cleanse with saline, pat dry, apply Triad cream, cover with Bordered gauze daily and PRN soiled/dislodged -Left upper back open wound Cleanse with saline, pat dry, apply Xeroform dressing, cover with bordered gauze daily and PRN soiled/dislodged -Apply A&D ointment on both legs and arms for dryness -Turn and reposition -Keep clean and dry -Optimize nutrition -Offload both heels -Low air loss SPR mattress -Heel protector on both heels -Assess and f/u accordingly for any changes RAJAN FUNK RN Apr 02, 2017 01:05
[2017-04-02 04:14] VITALS: BP 136/86
[2017-04-02 05:17] LABS: BASOPHILS % (AUTO) 0.9 % (0.0-2.0); EOSINOPHILS % (AUTO) 12.9 % (0.0-3.0); LYMPHOCYTES % (AUTO) 20.6 % (20.0-45.0); MEAN CORPUSCULAR HEMOGLOBIN 31.6 PG (27.0-31.0); MEAN CORPUSCULAR HGB CONC 33.7 G/DL (32.0-36.0); MEAN CORPUSCULAR VOLUME 94 FL (80-99); MEAN PLATELET VOLUME 7.4 FL (6.5-10.1); MONOCYTES % (AUTO) 16.4 % (1.0-10.0); NEUTROPHILS % (AUTO) 49.2 % (45.0-75.0); PLATELET COUNT 209 K/UL (150-450); RED BLOOD COUNT 3.83 M/UL (4.70-6.10); RED CELL DISTRIBUTION WIDTH 11.2 % (11.6-14.8); WHITE BLOOD COUNT 8.1 K/UL (4.8-10.8)
[2017-04-02] MEDS: Piperacillin/Tazobactam 3.375 GM in D5W 110 ML IVPB SCH (05:34)
[2017-04-02 05:43] LABS: ANION GAP 13 (5-15); CALCIUM 9.6 mg/dL (8.6-10.2); CARBON DIOXIDE 28 mEQ/L (20-30); CHLORIDE 104 mEQ/L (98-107); CREATININE 0.7 mg/dL (0.7-1.2); GLOMERULAR FILTRATION RATE > 60 mL/min (>60); HEMOLYSIS 1; POTASSIUM 3.6 mEQ/L (3.4-4.9); SODIUM 145 mEQ/L (135-145)
[2017-04-02 08:00] VITALS: BP 139/87
--- NOTE | 2017-04-02 08:02 | General Progress Note ---
Assessment/Plan Assessment/Plan IMPRESSION Leukocytosis possible sepsis prior craniotomy focal weakness PSVT MRSA PLAN care noted IV antibiotics- Vanco only respiratory care trach care SNF meds supportive care oxygen therapy prognosis guarded dc to SNF Subjective ROS Limited/Unobtainable: Yes Allergies: Coded Allergies: No Known Allergies (Unverified , 01/04/17) Subjective care noted vital signs ok wbc normal Objective Last 24 Hour Vital Signs Date Time Temp Pulse Resp B/P Pulse Ox O2 Delivery O2 Flow Rate FiO2 04/02/17 05:35 71 136/86 04/02/17 04:14 97.5 71 20 136/86 99 Trach Collar 40 04/02/17 04:00 8.0 40 04/02/17 04:00 58 04/02/17 00:19 72 129/85 04/02/17 00:00 98 T-piece 8.0 40 04/02/17 00:00 8.0 40 04/02/17 00:00 97.3 68 19 129/85 100 Trach Collar 40 04/02/17 00:00 69 04/01/17 20:04 97.2 73 20 157/90 100 Trach Collar 40 04/01/17 20:02 70 18 T-piece 8.0 40 04/01/17 20:02 T-piece 8.0 40 04/01/17 20:02 98 T-piece 8.0 40 04/01/17 20:00 67 04/01/17 20:00 8.0 40 04/01/17 18:26 64 138/87 04/01/17 16:00 97.5 68 20 138/87 100 Trach Collar 40 04/01/17 16:00 8.0 40 04/01/17 16:00 64 04/01/17 13:30 98 T-piece 8.0 40 04/01/17 13:30 T-piece 8.0 40 04/01/17 12:00 8.0 40 04/01/17 12:00 97.7 70 20 135/83 100 Trach Collar 40 04/01/17 12:00 64 04/01/17 11:55 70 135/83 Intake and Output 04/01/17 04/02/17 19:00 07:00 Intake Total 2499.916 ml 2050.0 ml Balance 2499.916 ml 2050.0 ml Free Water 50 ml 100 ml IV Total 1759.916 ml 1230.0 ml Tube Feeding 690 ml 720 ml # Voids 7 5 # Bowel Movements 2 3 Laboratory Tests 04/01/17 09:15: White Blood Count 8.8#, Red Blood Count 4.17L, Hemoglobin 13.0L, Hematocrit 39.0L, Mean Corpuscular Volume 94, Mean Corpuscular Hemoglobin 31.1H, Mean Corpuscular Hemoglobin Concent 33.3, Red Cell Distribution Width 11.3L, Platelet Count 206, Mean Platelet Volume 7.9, Neutrophils (%) (Auto) 60.7, Lymphocytes (%) (Auto) 17.6L, Monocytes (%) (Auto) 12.4H, Eosinophils (%) (Auto ) 8.4H, Basophils (%) (Auto) 1.0, Sodium Level 142, Potassium Level 3.9, Chloride Level 103, Carbon Dioxide Level 26, Anion Gap 13, Blood Urea Nitrogen 7 , Creatinine 0.7, Estimat Glomerular Filtration Rate > 60, Glucose Level 141H, Calcium Level 9.7 04/01/17 17:10: Vancomycin Level Trough 21.9H 04/02/17 04:20: White Blood Count 8.1, Red Blood Count 3.83L, Hemoglobin 12.1L, Hematocrit 35.9L , Mean Corpuscular Volume 94, Mean Corpuscular Hemoglobin 31.6H, Mean Corpuscular Hemoglobin Concent 33.7, Red Cell Distribution Width 11.2L, Platelet Count 209, Mean Platelet Volume 7.4, Neutrophils (%) (Auto) 49.2, Lymphocytes (%) (Auto) 20.6, Monocytes (%) (Auto) 16.4H, Eosinophils (%) (Auto) 12.9H, Basophils (%) (Auto) 0.9, Sodium Level 145, Potassium Level 3.6, Chloride Level 104, Carbon Dioxide Level 28, Anion Gap 13, Blood Urea Nitrogen 8 , Creatinine 0.7, Estimat Glomerular Filtration Rate > 60, Glucose Level 154H, Calcium Level 9.6 Height (Feet): 5 Height (Inches): 9.00 Weight (Pounds): 174 Objective WDWN NAD clear breath sounds bilaterally without rhonchi or wheeze [id number] without MRG NABS nontender no HSM no CCE focal weakness off vent trach and gt in place CYNTHIA PERDOMO Apr 02, 2017 08:02
[2017-04-02] MEDS: Aspirin EC 81mg tab ORAL SCH (08:30)
[2017-04-02] MEDS: Ascorbic Acid 500mg tab GT SCH (08:30)
[2017-04-02] MEDS: Docusate 100mg/10ml Liq GT SCH (08:30)
[2017-04-02] MEDS: levETIRAcetam 500mg/5ml Liquid GT SCH (08:31)
[2017-04-02] MEDS ORDERED: Vitamin A&D Oint 2oz Tube TOPIC SCH (09:00)
[2017-04-02] MEDS: Vancomycin 1250mg/D5W 250ml 250 ML IVPB SCH (10:16)
[2017-04-02 12:00] VITALS: BP 119/81
[2017-04-02 16:00] VITALS: BP 135/88
--- NOTE | 2017-04-04 14:27 | Discharge Summary ---
Discharge Summary Hospital Course Date of Admission Mar 30, 2017 at 19:24 Date of Discharge Apr 02, 2017 at 18:10 Admitting Diagnosis sepsis HPI Morgan Stevenson is a 61 year old male who was admitted on Mar 30, 2017 at 19:24 for Sepsis Hospital Course [id number] Discharge Discharge Disposition Patient was discharged to SNF/Subacute Facility(03) Discharge Diagnoses: Jazmin Rojas NP Apr 04, 2017 14:27
--- NOTE | 2017-04-04 20:00 | Discharge Summary 2 SIG ---
DATE OF ADMISSION: 03/30/2017 DATE OF DISCHARGE: 04/02/2017 BRIEF HOSPITAL COURSE: The patient is a 61-year-old male, who was brought in by EMS from the [facility] for evaluation of tachycardia and fever. 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 He had a prior brain surgery. On evaluation at ED, the patient was noted to be febrile with temperature of 101.8 degrees and had a rapid heart beat. EKG showed supraventricular tachycardia at a rate of 131, without acute ST to T-wave changes. He was given IV adenosine and had brief slowing of heart rate, which subsequently appeared to show sinus tachycardia. He was started on IV hydration with improvement of his heart rate and was given intravenous antibiotics. Laboratories showed leukocytosis. WBC was elevated to 25.3. Urinalysis was negative. Chest x-ray showed no evidence of acute cardiopulmonary disease. The patient was admitted to [facility] for possible sepsis, leukocytosis, weakness, and SVT. He was pancultured. Blood culture did not isolate any growth. He came in with stage III right buttock pressure ulcer. Wound culture showed methicillin-resistant Staphylococcus aureus. He was given vancomycin IV. Leukocytosis improved. He eventually defervesced and was subsequently discharged back to [facility] to continue IV vancomycin for five more days and to resume hospital medications. FINAL DIAGNOSES: 1. Leukocytosis and possible sepsis. 2. Prior craniotomy. 3. Paroxysmal supraventricular tachycardia resolved. 4. Methicillin-resistant Staphylococcus aureus. 5. Stage III pressure ulcer on right buttock, present on admission. Clifton Marin M.D. I have been assigned to dictate discharge summary on this account and I was not involved in the patient's management. Jazmin Rojas N.P. DR: ELISHA JOB#: [id number] CC:
--- NOTE | 2017-04-05 11:42 | Diagnostic Imaging Report ---
Indications: DYSPHAGIA Technique: Patient ingested multiple substances under the supervision of speech pathology. Video fluoroscopic recording performed. Total fluoroscopy time 292 seconds. Total dose area product 0.31573 mGycm2 Comparison: none Findings: Marked delay in initiation of deglutition early pooling in the vallecula and puriform sinuses. No evidence of aspiration. There is trace penetration of nectar thick liquid barium noted. There is evidence of extensive mandibular deformity with evidence of prior surgery Impression: Positive for penetration of nectar thick liquid barium Negative for aspiration Other oromotor dysfunction as described Please refer to speech pathology report for more detailed analysis
== END 2017-04-02 18:10 | DRG 720 ==
LOC: EDBD 18:21 → EDBEDREQ 18:40 → EMR 19:15 → 2W 19:24 → EDBEDREQ 21:09
DX: A41.9 Sepsis, unspecified organism (principal); L89.313 Pressure ulcer of right buttock, stage 3; Z43.0 Encounter for attention to tracheostomy; R56.9 Unspecified convulsions; I47.1 Supraventricular tachycardia; B95.62 Methicillin resistant Staphylococcus aureus infection as the cause of diseases classified elsewhere; Z86.73 Personal history of transient ischemic attack (TIA), and cerebral infarction without residual deficits; Z98.890 Other specified postprocedural states
CPT/HCPCS: 36415; 36600; 71010; 74230; 80048; 80053; 80202; 81003; 82550; 82553; 82803; 83605; 83880; 84484; 85007; 85025; 87040; 87070; 87081; 87181; 87205; 93005; 93970; 94664; 94760

== ENCOUNTER 2017-12-16 20:10 | Inpatient (IN) | payer OTHER ==
[~2017-12-16] VITALS: Ht 185.4 cm; Wt 80.7 kg
[~2017-12-16 20:10] MED LIST changes: +ASPIRIN81 MG GT; +ATORVASTATIN CA40 MG GT
[2017-12-16 20:37] VITALS: BP 106/75
[2017-12-16] MEDS ORDERED: PAXIL10 MG GT (20:40)
[2017-12-16] MEDS ORDERED: FERROUS SU300 MG/52 GT (20:40)
[2017-12-16] MEDS ORDERED: LEVETIRACE100 MG/1 M GT (20:40)
[2017-12-16] MEDS ORDERED: MILK OF MA400 MG/51 ORAL (20:40)
[2017-12-16] MEDS ORDERED: NORCO 5-325 TA1 EACH GT (20:40)
[2017-12-16] MEDS ORDERED: CENTRUM MU9 MG/15 ML PO (20:40)
[2017-12-16] MEDS ORDERED: CARDIZEM30 M1 GT (20:40)
[2017-12-16] MEDS ORDERED: DIPHENHYDRAMINE25 M3 ORAL (20:40)
[2017-12-16] MEDS ORDERED: VITAMIN C500 MG/11 GT (20:40)
[2017-12-16] MEDS ORDERED: BENAZEPRIL HCL10 MG GT (20:40)
[2017-12-16] MEDS ORDERED: ACETAMINOP160 MG/5 M GT (20:40)
[2017-12-16] MEDS ORDERED: AMLODIPINE BESY10 MG GT (20:40)
[2017-12-16] MEDS ORDERED: FLEET ENEMA133 ML RECTAL (20:40)
--- NOTE | 2017-12-16 20:50 | Emergency Room Report ---
History of Present Illness General Chief Complaint: Generalized Weakness Source: Patient, Medical Record, EMS Present Illness HPI This is a 62-year-old male with a history of CVA with right-sided weakness. He is a half-way patient has a tracheostomy and a feeding tube. He presents with chief complaint of increasing weakness and altered mental status. Not as alert and awake as usual. Also increasing cough and increasing sputum. No nausea no vomiting. No diarrhea. Onset today. Denies any other complaint. Allergies: Coded Allergies: No Known Allergies (Unverified , 01/04/17) Patient History Past Medical History: see triage record, old chart reviewed Past Surgical History: other Pertinent Family History: none Social History: Denies: smoking Immunizations: other Reviewed Nursing Documentation: PMH: Agreed; PSxH: Agreed Nursing Documentation-PMH Hx Cardiac Problems: Yes - elevated wbc Hx Hypertension: Yes Hx Pacemaker: No - brain surgery Hx Cancer: No Hx Gastrointestinal Problems: Yes - Gastrostomy tube, acute cholecystitis Hx Neurological Problems: Yes Hx Cerebrovascular Accident: Yes - Right side hemiplegia Hx Seizures: Yes - Epilepsy Hx Epilepsy: Yes Hx Neurologic Surgery: Yes - craniotomy Hx Brain Shunt: Yes - Ventriculostomy Review of Systems Constitutional: Reports: weakness Eye: Denies: eye pain, blurred vision ENT: Denies: ear pain, nose congestion, throat swelling Respiratory: Reports: cough; Denies: shortness of breath Cardiovascular: Denies: chest pain, palpitations Gastrointestinal: Denies: abdominal pain, diarrhea, nausea, vomiting Musculoskeletal: Denies: back pain, joint pain Skin: Denies: rash Neurological: Denies: headache, numbness Endocrine: Denies: increased thirst, increased urine Hematologic/Lymphatic: Denies: easy bruising All Other Systems: negative except mentioned in HPI Physical Exam Vital Signs Date Time Temp Pulse Resp B/P (MAP) Pulse Ox O2 Delivery O2 Flow Rate FiO2 12/16/17 20:08 99.1 90 16 106/74 100 Trach Collar 4.0 99.1 vitals with low-grade feve Sp02 EP Interpretation: reviewed, normal General Appearance: well appearing, no apparent distress, alert Head: normocephalic, atraumatic Eyes: bilateral eye PERRL, bilateral eye EOMI ENT: hearing grossly normal, normal pharynx Neck: full range of motion, supple, no meningismus, tracheotomy - sputum surrounding tracheostom Respiratory: chest non-tender, rhonchi Cardiovascular #1: regular rate, rhythm, no murmur Gastrointestinal: normal bowel sounds, non tender, no mass, no organomegaly, no bruit, non-distended Musculoskeletal: no calf tenderness Neurologic: alert, other - right-sided weakness Psychiatric: mood/affect normal Skin: warm/dry Medical Decision Making Diagnostic Impression: Primary Impression: Healthcare-associated pneumonia ER Course Patient presents with a care associated pneumonia. Increased sputum production and right lower lobe interstitial infiltrate. He does have a low-grade fever. Could be viral in nature. He grew out Pseudomonas and Rachel in his sputum last year. Sensitive to Zosyn. I also added Levaquin for coverage. Hemodynamically stable. We'll admit for IV antibiotics. I contacted Dr. Tania wynn for admission. Lab Results Impression labs unremarkable EKG Diagnostic Results Rate: normal Rhythm: NSR ST Segments: other - bifascicular block Rhythm Strip Diag. Results Rhythm Strip Time: 20:50 EP Interpretation: yes Rate: 88 Rhythm: NSR, no PVC's, no ectopy Chest X-Ray Diagnostic Results Chest X-Ray Diagnostic Results : Chest X-Ray Ordered: Yes # of Views/Limited/Complete: 1 View Indication: Shortness of Breath EP Interpretation: Yes Interpretation: no effusion, no pneumothorax, other - right lower lobe interstitial infiltrate Impression: Other - RLL infiltrate Electronically Signed by: Troy Merino MD Last Vital Signs Date Time Temp Pulse Resp B/P (MAP) Pulse Ox O2 Delivery O2 Flow Rate FiO2 12/16/17 20:37 84 19 106/75 100 Trach Collar 4.0 12/16/17 20:08 99.1 99.1 Status: improved Disposition: ADMITTED INPATIENT Condition: Serious TROY MERINO M.D. Dec 16, 2017 20:50
[2017-12-16] MEDS ORDERED: NS 1000ml 2,600 ML IVLG ONE (21:00)
[2017-12-16 21:03] LABS: HEMATOCRIT 38.3 % (42.0-52.0); HEMOGLOBIN 13.1 G/DL (14.2-18.0); MEAN CORPUSCULAR VOLUME 91 FL (80-99); PLATELET COUNT 177 K/UL (150-450); RED BLOOD COUNT 4.23 M/UL (4.70-6.10); RED CELL DISTRIBUTION WIDTH 11.4 % (11.6-14.8)
[2017-12-16 21:05] LABS: APPEARANCE,URINE CLEAR; BILIRUBIN, URINE NEGATIVE (NEGATIVE); GLUCOSE, URINE (UA) NEGATIVE (NEGATIVE); KETONES,URINE NEGATIVE (NEGATIVE); LEUKOCYTE ESTERASE ,URINE 1+ (NEGATIVE); NITRITE,URINE NEGATIVE (NEGATIVE); PH,URINE 7 (4.5-8.0); PROTEIN,URINE 2+ (NEGATIVE); UROBILINOGEN,URINE 4 MG/DL (0.0-1.0)
[2017-12-16 21:06] LABS: COLOR,URINE YELLOW
[2017-12-16] MEDS ORDERED: Piperacillin/Tazobactam 3.375 GM in NS 110 ML IVPB ONE (21:15)
[2017-12-16] MEDS ORDERED: Zosyn 3.375gm inj ONE (21:27)
[2017-12-16 21:34] LABS: ANION GAP 8 mmol/L (5-15); BLOOD UREA NITROGEN 19 mg/dL (7-18); CALCIUM 9.6 MG/DL (8.5-10.1); CARBON DIOXIDE 31 MMOL/L (21-32); CHLORIDE 104 MMOL/L (98-107); CREATININE 0.9 MG/DL (0.55-1.30); POTASSIUM 3.7 MMOL/L (3.5-5.1); SODIUM 143 MMOL/L (136-145)
[2017-12-16 21:49] LABS: ALANINE AMINOTRANSFERASE 61 U/L (12-78); ALBUMIN 3.6 G/DL (3.4-5.0); ALBUMIN/GLOBULIN RATIO 0.7 (1.0-2.7); ALKALINE PHOSPHATASE 102 U/L (46-116); ASPARTATE AMINO TRANSFERASE 49 U/L (15-37); BILIRUBIN,TOTAL 0.3 MG/DL (0.2-1.0); CKMB 1.3 NG/ML (0.0-3.6); CREATINE KINASE 334 U/L (26-308)
[2017-12-16 22:56] VITALS: BP 134/102
[2017-12-17] MEDS ORDERED: Milk of Magnesia 30ml Ud ORAL PRN (03:15)
[2017-12-17] MEDS ORDERED: Fleet's Enema 133ml RECTAL PRN (03:15)
[2017-12-17] MEDS ORDERED: Vancomycin 1500mg IVPB ONE (04:00)
[2017-12-17] MEDS ORDERED: Piperacillin/Tazobactam 3.375 GM in NS 110 ML IVPB SCH (06:00)
[2017-12-17] MEDS: Albuterol/Ipratropium 3ml neb HHN SCH ×4 (07:13→21:07)
[2017-12-17 08:00] VITALS: BP 115/79
[2017-12-17] MEDS ORDERED: Benazepril 10mg tab GT SCH (09:00)
[2017-12-17] MEDS: levETIRAcetam 500mg/5ml Liquid GT SCH ×2 (09:51→21:54)
[2017-12-17] MEDS: Piperacillin/Tazobactam 3.375 GM in D5W 110 ML IVPB SCH ×2 (09:51→17:14)
[2017-12-17] MEDS: Multivitamins W/Minerals 15 ML UDC GT SCH (09:52)
[2017-12-17] MEDS: Docusate 100mg cap ORAL SCH (09:52)
[2017-12-17] MEDS: Ascorbic Acid 500mg tab GT SCH (09:52)
[2017-12-17] MEDS: Aspirin Baby 81mg GT SCH (09:52)
[2017-12-17] MEDS: Ferrous Sulfate 300 MG/5 ML UDC GT SCH (09:53)
[2017-12-17] MEDS: PARoxetine 10mg tab GT SCH (09:54)
--- NOTE | 2017-12-17 11:21 | Diagnostic Imaging Report ---
Indication: Shortness of breath Technique: One view of the chest Comparison: 03/31/2017 Findings: Tracheostomy remains. Right infrahilar linear presumed scarring is again demonstrated. The lungs and pleural spaces are otherwise clear. The heart size is normal. Tracheostomy remains. No significant interim change Impression: No acute process. Findings as noted.
[2017-12-17 12:00] VITALS: BP 111/82
[2017-12-17] MEDS: dilTIAZem HCl 30mg tab GT SCH ×2 (13:43→17:48)
[2017-12-17] MEDS ORDERED: Tubing IV Secondary IV ONE (15:45)
[2017-12-17] MEDS ORDERED: D5W 275ml ONE (15:45)
[2017-12-17 16:00] VITALS: BP 113/70
--- NOTE | 2017-12-17 16:35 | Cardiology Report ---
APPROVED REPORT EKG Measurement Heart [id number] Normal sinus rhythm Right bundle branch block Left anterior fascicular block Bifascicular block Minimal voltage criteria for LVH, may be normal variant Septal infarct, age undetermined Abnormal ECG
--- NOTE | 2017-12-17 16:45 | History and Physical Report ---
DATE OF ADMISSION: 12/16/2017 CHIEF COMPLAINT: Altered mental status, healthcare-associated pneumonia, and history of stroke. HISTORY OF PRESENT ILLNESS: The patient is a 62-year-old male. He has a history of chronic respiratory failure, encephalopathy, hypertensive heart disease, and SVT, who [facility] with complaints of altered mental status. According to the nurse, the patient has been more somnolent and sleepy. Of note, he did pull on his trach several days ago and since then has been more altered. On evaluation in the emergency room, the patient had x-ray evidence of pneumonia. He admits he has been started on broad-spectrum antibiotic therapy. He is now admitted for further evaluation and care. PAST MEDICAL HISTORY: As above. PAST SURGICAL HISTORY: Prior history of craniotomy, trach and G-tube. CURRENT MEDICATIONS: Reconciled and reviewed. ALLERGIES: None. FAMILY HISTORY: Unknown. SOCIAL HISTORY: There is no known history of tobacco, ethanol, or drugs. REVIEW OF SYSTEMS: Unobtainable. PHYSICAL EXAMINATION: VITAL SIGNS: Temperature 98 degrees, pulse 105, respirations 22, and blood pressure 115/79. GENERAL: The patient is well developed, in no apparent distress. He is currently resting. NECK: Supple. Trach site is clean. HEART: Regular rate and rhythm. LUNGS: Lungs are clear. ABDOMEN: Soft, nontender, and nondistended. EXTREMITIES: Without clubbing, cyanosis, or edema. LABORATORY AND DIAGNOSTIC DATA: White count was 8 and hemoglobin 13. Sodium 143, potassium 3.7, and creatinine was 0.9. CK was 334. Per report, chest x-ray showed right lower lobe infiltrates. ASSESSMENT: This is an elderly male, admitted with a history of chronic respiratory failure, encephalopathy, stroke, craniotomy, history of supraventricular tachycardia, history ischemic cardiomyopathy, and seizure disorder, admitted with altered mental status, suspect secondary to infection. PROBLEM LIST: 1. Pneumonia. 2. Toxic metabolic encephalopathy. 3. History of stroke and seizure disorder. 4. History of ischemic cardiomyopathy. PLAN: Respiratory treatments and suction. Broad-spectrum IV antibiotics. Check an ABG. Consider head CT if the patient's mental status does not improve close to baseline. Continue outpatient seizure regimen. Eugene Prater M.D. DR: MALINI JOB#: [id number] CC:
[2017-12-17] MEDS: Vancomycin 1250mg/D5W 250ml IVPB SCH (16:56)
[2017-12-17 20:00] VITALS: BP 108/58
[2017-12-17] MEDS: Atorvastatin 80mg tab GT SCH (21:54)
[2017-12-17] MEDS: Heparin 5000 units/ml inj SUBQ SCH (21:57)
[2017-12-17] MEDS: DiphenhydrAMINE 25mg/10ml Elixir NG PRN (23:55)
[2017-12-18] VITALS: BP 115/69
[2017-12-18] MEDS: Piperacillin/Tazobactam 3.375 GM in D5W 110 ML IVPB SCH ×4 (00:55→20:44)
--- NOTE | 2017-12-18 01:45 | Consultation ---
DATE OF CONSULTATION: 12/16/2017 CARDIOLOGY CONSULTATION CONSULTING PHYSICIAN: Hari Pagan M.D. REQUESTING PHYSICIAN: Eugene Prater M.D. HISTORY OF PRESENT ILLNESS: The patient is a 62-year-old male with prior cerebrovascular accident and right-sided hemiparesis. He also has a history of respiratory failure and dysphagia with tracheostomy and gastric feeding tube respectively. The patient was increasingly weak, lethargic, and altered in mentation. This was described as a change from his usual baseline and was also associated with cough, congestion, and productive of sputum. The patient was sent to the emergency room. Concern raised over his cardiovascular parameters that has prompted this consultation as well. PAST MEDICAL HISTORY: Hypertension, atherosclerotic cardiovascular disease, history of cerebrovascular accident, dysphagia with gastrostomy tube, right-sided hemiparesis, history of cholecystitis, seizure disorder, prior ventriculostomy, and craniotomy. MEDICATIONS: Prior to admission, reviewed and reconciled. ALLERGIES: None. FAMILY HISTORY: Not known. REVIEW OF SYSTEMS: Not obtainable from the patient. PHYSICAL EXAMINATION: VITAL SIGNS: Temperature 99.1, blood pressure 106/74, heart rate 90, and respiratory rate 16. NECK: Supple. Trach site with no drainage. LUNGS: Coarse breath sounds. HEART: Regular rhythm and rate. Normal S1, S2 with a fourth heart sound. ABDOMEN: Soft. G-tube intact. EXTREMITIES: No edema. Dry mucous membranes. No thrush. DIAGNOSTIC DATA: EKG reveals sinus rhythm, right bundle and left anterior superior hemiblock, and possible septal infarction of indeterminate age. Chest x-ray with right lower lobe infiltrate. White count 8 and hemoglobin 13. Potassium 3.7. BUN 19 and creatinine 0.9. Lactic acid 1.3. Glucose 118. Troponin 0. IMPRESSION: 1. Healthcare-acquired pneumonia. 2. Toxic and metabolic encephalopathies. 3. Conduction system disease of the heart. 4. Atherosclerotic cardiovascular disease. 5. Bifascicular heart block. 6. Possible prior septal infarction. 7. Hypertension, now with low grade blood pressure. 8. Hypovolemia and dehydration. 9. Probable sepsis. 10. Paroxysmal atrial ectopy. PLAN: 1. Panculture. 2. Respiratory hygiene. 3. Empiric broad-spectrum antibiotics. 4. Cautious hydration. 5. Cardiac monitoring. 6. Aspirin prophylaxis. 7. Anti-lipid therapy. 8. Check lipid parameters. 9. Titrate antihypertensives based on clinical parameters. 10. Continue diltiazem for arrhythmia suppression. 11. Hold amlodipine for low grade blood pressures. Hari Pagan M.D. DR: HAYLEY JOB#: [id number] CC:
[2017-12-18 04:00] VITALS: BP 110/70
[2017-12-18] MEDS: Albuterol/Ipratropium 3ml neb HHN SCH ×6 (04:28→19:27)
[2017-12-18] MEDS: Vancomycin 1250mg/D5W 250ml IVPB SCH ×2 (04:31→17:07)
[2017-12-18] MEDS: dilTIAZem HCl 30mg tab GT SCH ×3 (07:07→22:27)
--- NOTE | 2017-12-18 07:45 | Progress Note ---
DATE: 12/17/2017 CARDIOLOGY PROGRESS NOTE SUBJECTIVE: The patient still has congestion. He has no fever spikes. Monitored rhythm sinus and sinus tachycardia. OBJECTIVE: VITAL SIGNS: Blood pressure 113/70, pulse 98, and respirations 18. NECK: Supple. Trach secretions thin. in place. LUNGS: Coarse breath sounds with rhonchi. HEART: Regular rhythm. Rapid rate. Normal S1 and S2 with a fourth heart sound. ABDOMEN: Soft. EXTREMITIES: Trace edema. LABORATORY DATA: No new laboratories. IMPRESSION: 1. Healthcare-acquired pneumonia. 2. Metabolic and toxic encephalopathies. 3. Ischemic heart disease. 4. Conduction system disease of the heart. 5. Asymptomatic bifascicular heart block. 6. History of hyperlipidemia. 7. Paroxysmal atrial ectopy. 8. Hypovolemia and dehydration. 9. Probable sepsis. 10. Low range blood pressure in this clinical setting. PLAN: 1. Discontinue amlodipine. 2. Titrate diltiazem and benazepril. 3. Cautiously maintain adequate hydration by IV route. 4. Adjust fluids. 5. Recheck laboratory studies. 6. Broad-spectrum antibiotics. 7. Respiratory hygiene. 8. Check lipid panel and CK results and adjust therapy accordingly. Hari Pagan M.D. DR: HAYLEY JOB#: [id number] CC:
[2017-12-18 08:00] VITALS: BP 116/72
[2017-12-18 08:50] LABS: HEMATOCRIT 33.7 % (42.0-52.0); HEMOGLOBIN 11.7 G/DL (14.2-18.0); MEAN CORPUSCULAR VOLUME 89 FL (80-99); PLATELET COUNT 145 K/UL (150-450); RED BLOOD COUNT 3.76 M/UL (4.70-6.10); RED CELL DISTRIBUTION WIDTH 11.6 % (11.6-14.8); WHITE BLOOD COUNT 7.7 K/UL (4.8-10.8)
[2017-12-18] MEDS: Heparin 5000 units/ml inj SUBQ SCH ×2 (09:00→20:26)
[2017-12-18] MEDS: Aspirin Baby 81mg GT SCH (09:00)
[2017-12-18] MEDS: Docusate 100mg cap ORAL SCH (09:00)
[2017-12-18 09:19] LABS: ALANINE AMINOTRANSFERASE 50 U/L (12-78); ALBUMIN 3.1 G/DL (3.4-5.0); ALBUMIN/GLOBULIN RATIO 0.7 (1.0-2.7); ALKALINE PHOSPHATASE 80 U/L (46-116); ANION GAP 9 mmol/L (5-15); ASPARTATE AMINO TRANSFERASE 54 U/L (15-37); BILIRUBIN,TOTAL 0.5 MG/DL (0.2-1.0); BLOOD UREA NITROGEN 11 mg/dL (7-18); CALCIUM 8.6 MG/DL (8.5-10.1); CARBON DIOXIDE 28 MMOL/L (21-32); CHLORIDE 105 MMOL/L (98-107); CHOLESTEROL 77 MG/DL (< 200); CREATININE 0.7 MG/DL (0.55-1.30); HDL CHOLESTEROL 35 MG/DL (40-60); POTASSIUM 4.3 MMOL/L (3.5-5.1); SODIUM 142 MMOL/L (136-145); TRIGLYCERIDES 46 MG/DL (30-150)
[2017-12-18 09:47] LABS: CREATINE KINASE 159 U/L (26-308)
--- NOTE | 2017-12-18 10:08 | Pulmonology Progress Note ---
Assessment/Plan Assessment/Plan respiratory failure trach GT CVA focal weakness pneumonia PLAN respiratory care oxygen iv antibiotics check cultures dc once improved Subjective Allergies: Coded Allergies: No Known Allergies (Unverified , 01/04/17) Subjective care noted and reviewed on trach collar Objective Last 24 Hour Vital Signs Date Time Temp Pulse Resp B/P (MAP) Pulse Ox O2 Delivery O2 Flow Rate FiO2 12/18/17 08:00 97.3 86 20 116/72 95 97.3 12/18/17 07:53 89 20 T-piece 6.0 12/18/17 07:53 89 20 98 T-piece 6.0 12/18/17 07:52 T-piece 6.0 12/18/17 07:44 82 20 96 T-piece 6.0 12/18/17 07:43 96 T-piece 6.0 12/18/17 07:07 86 116/72 12/18/17 04:00 97.7 98 19 110/70 98 T-piece 10.0 35 97.7 12/18/17 04:00 94 12/18/17 03:30 91 20 97 T-piece 6.0 12/18/17 03:30 84 20 95 T-piece 6.0 12/18/17 01:30 95 T-piece 6.0 12/18/17 01:30 T-piece 6.0 12/18/17 00:00 86 20 97 T-piece 6.0 12/18/17 00:00 92 20 98 T-piece 6.0 12/18/17 00:00 121 12/18/17 00:00 98.1 97 18 115/69 98 T-piece 10.0 35 98.1 12/17/17 20:00 94 20 99 T-piece 6.0 12/17/17 20:00 97.9 99 17 108/58 99 T-piece 10.0 35 97.9 12/17/17 20:00 96 12/17/17 20:00 90 20 T-piece 6.0 12/17/17 19:30 90 20 97 T-piece 6.0 12/17/17 19:30 98 T-piece 6.0 12/17/17 19:30 28 12/17/17 19:30 T-piece 6.0 12/17/17 17:48 98 113/70 12/17/17 16:00 101 12/17/17 16:00 97.9 98 20 113/70 98 T-piece 10.0 35 97.9 12/17/17 15:52 101 18 98 T-piece 35 12/17/17 15:49 96 18 98 T-piece 10.0 35 12/17/17 15:48 35 12/17/17 13:43 104 115/79 12/17/17 12:00 106 12/17/17 12:00 97.7 98 20 111/82 98 T-piece 10.0 35 97.7 12/17/17 10:48 104 18 98 T-piece 35 12/17/17 10:47 35 12/17/17 10:43 94 18 98 T-piece 10.0 35 Intake and Output 12/17/17 12/18/17 19:00 07:00 Intake Total 100 ml 824.334 ml Balance 100 ml 824.334 ml Intake IV Total 100 ml 824.334 ml # Voids 4 # Bowel Movements 1 Objective WDWN NAD reduced breath sounds bilaterally with some rhonchi [id number] without MRG NABS nontender no HSM no CCE focal weakness Microbiology Date/Time Source Procedure Growth Status 12/16/17 20:35 Blood Blood Culture - Preliminary NO GROWTH AFTER 24 HOURS Resulted 12/16/17 20:20 Blood Blood Culture - Preliminary NO GROWTH AFTER 24 HOURS Resulted 12/16/17 20:55 Sputum Gram Stain - Final Resulted 12/16/17 20:55 Sputum Sputum Culture - Preliminary NORMAL UPPER RESPIRATORY REN AT 24 ... Resulted 12/16/17 20:55 Nasal Nares Influenza Types A,B Antigen (BLAKE) - Final Complete Laboratory Tests 12/18/17 06:50: White Blood Count 7.7, Red Blood Count 3.76L, Hemoglobin 11.7L, Hematocrit 33.7L , Mean Corpuscular Volume 89, Mean Corpuscular Hemoglobin 31.1H, Mean Corpuscular Hemoglobin Concent 34.8, Red Cell Distribution Width 11.6, Platelet Count 145L, Mean Platelet Volume 7.8, Neutrophils (%) (Auto) , Lymphocytes (%) ( Auto) , Monocytes (%) (Auto) , Eosinophils (%) (Auto) , Basophils (%) (Auto) , Differential Total Cells Counted 100, Neutrophils % (Manual) 37L, Lymphocytes % (Manual) 29, Monocytes % (Manual) 29H, Eosinophils % (Manual) 5H, Basophils % ( Manual) 0, Band Neutrophils 0, Platelet Estimate Adequate, Platelet Morphology Normal, Hypochromasia 1+, Sodium Level 142, Potassium Level 4.3, Chloride Level 105, Carbon Dioxide Level 28, Anion Gap 9, Blood Urea Nitrogen 11, Creatinine 0.7, Estimat Glomerular Filtration Rate > 60, Glucose Level 156H, Calcium Level 8.6, Total Bilirubin 0.5, Aspartate Amino Transf (AST/SGOT) 54H, Alanine Aminotransferase (ALT/SGPT) 50, Alkaline Phosphatase 80, Total Creatine Kinase 159, Pro-B-Type Natriuretic Peptide 106, Total Protein 7.3, Albumin 3.1L, Globulin 4.2, Albumin/Globulin Ratio 0.7L, Triglycerides Level 46, Cholesterol Level 77, LDL Cholesterol 39, HDL Cholesterol 35L, Cholesterol/HDL Ratio 2.2L Current Medications Medications (Trade) Dose Ordered Sig/Oral Route PRN Reason Start Time Stop Time Status Last Admin Dose Admin Albuterol/ Ipratropium (Albuterol/ Ipratropium) 3 ml Q4HRT HHN 12/17/17 07:00 12/22/17 06:59 12/18/17 07:49 Ascorbic Acid (Vitamin C) 500 mg DAILY GT 12/17/17 09:00 01/16/18 08:59 12/17/17 09:52 Aspirin (ASA) 81 mg DAILY GT 12/17/17 09:00 01/16/18 08:59 12/17/17 09:52 Atorvastatin Calcium (Lipitor) 80 mg BEDTIME GT 12/17/17 21:00 01/16/18 20:59 12/17/17 21:54 Benazepril HCl (Lotensin) 20 mg DAILY GT 12/18/17 09:00 01/17/18 08:59 Bisacodyl (Dulcolax) 10 mg DAILYPRN PRN RECTAL Constipation 12/17/17 03:15 01/16/18 03:14 Diltiazem HCl (Cardizem) 60 mg Q8HR GT 12/18/17 06:00 01/17/18 05:59 12/18/17 07:07 Diphenhydramine HCl (Benadryl) 25 mg HSPRN PRN NG Itching 12/17/17 03:15 01/16/18 03:14 12/17/17 23:55 Docusate Sodium (Colace) 100 mg DAILY ORAL 12/17/17 09:00 01/16/18 08:59 12/17/17 09:52 Ferrous Sulfate (Feosol) 300 mg DAILY GT 12/17/17 09:00 01/16/18 08:59 12/17/17 09:53 Heparin Sodium (Porcine) (Heparin 5000 units/ml) 5,000 units EVERY 12 HOURS SUBQ 12/17/17 21:00 01/16/18 20:59 12/17/17 21:57 Levetiracetam (Keppra) 500 mg Q12HR GT 12/17/17 09:00 01/16/18 08:59 12/17/17 21:54 Magnesium Hydroxide (Mom) 30 ml DAILYPRN PRN ORAL Constipation 12/17/17 03:15 01/16/18 03:14 Multivitamins (Multivitamins W/ Minerals 15ml Liquid) 15 ml DAILY GT 12/17/17 09:00 01/16/18 08:59 12/17/17 09:52 Paroxetine HCl (Paxil) 10 mg DAILY GT 12/17/17 09:00 01/16/18 08:59 12/17/17 09:54 Piperacillin Sod/ Tazobactam Sod 3.375 gm/Dextrose 110 ml @ 27.5 mls/hr Q8H IVPB 12/17/17 08:00 12/24/17 07:59 12/18/17 00:55 Sodium Chloride 1,000 ml @ 75 mls/hr [id number] IV 12/18/17 03:15 01/17/18 03:14 12/18/17 03:45 Sodium Phosphate (Fleet's Sodium Phosl Enema) 133 ml DAILYPRN PRN RECTAL Constipation 12/17/17 03:15 01/16/18 03:14 Vancomycin HCl (Vanco rx to dose) 1 ea DAILY PRN MISC Per rx protocol 12/17/17 03:15 01/16/18 03:14 Vancomycin HCl/ Dextrose 250 ml @ 166.667 mls/hr Q12H IVPB 12/17/17 16:00 12/22/17 15:59 12/18/17 04:31 CYNTHIA PERDOMO Dec 18, 2017 10:08
[2017-12-18] MEDS: Ascorbic Acid 500mg tab GT SCH (10:30)
[2017-12-18] MEDS: PARoxetine 10mg tab GT SCH (10:30)
[2017-12-18] MEDS: Ferrous Sulfate 300 MG/5 ML UDC GT SCH (10:30)
[2017-12-18] MEDS: Benazepril 10mg tab GT SCH (10:31)
[2017-12-18] MEDS: levETIRAcetam 500mg/5ml Liquid GT SCH ×2 (10:31→20:23)
[2017-12-18] MEDS: Multivitamins W/Minerals 15 ML UDC GT SCH (10:32)
--- NOTE | 2017-12-18 11:00 | Diagnostic Imaging Report ---
Indication: Dyspnea Technique: One view of the chest Comparison: 12/16/2017 Findings: Patient's chin obscures the upper mediastinum and left lung apex. There is a tracheostomy. The lungs and pleural spaces are clear. The heart size is normal. The aorta is tortuous Impression: No acute process
[2017-12-18 12:00] VITALS: BP 117/75
--- NOTE | 2017-12-18 12:13 | Consultation ---
History of Present Illness General Date patient seen: Dec 17, 2017 Chief Complaint: Generalized Weakness Present Illness HPI 62-year-old male. He has a history of chronic respiratory failure, encephalopathy, hypertensive heart disease, and SVT, who was transferred from [facility] with complaints of altered mental status. the pt was agitated and pulled out his IV access. the pt is confused and nonverbal Allergies: Coded Allergies: No Known Allergies (Unverified , 01/04/17) Medication History Scheduled Amlodipine Besylate* (Amlodipine Besylate*), 10 MG GT DAILY, (Reported) Ascorbic Acid* (Vitamin C*), 500 MG GT DAILY, (Reported) Ascorbic Acid* (Vitamin C*), 500 MG GT DAILY, (Reported) Aspirin* (Aspirin*), 81 MG GT DAILY, (Reported) Atorvastatin Calcium* (Atorvastatin Calcium*), 80 MG GT BEDTIME, (Reported) Benazepril Hcl* (Benazepril Hcl*), 10 MG GT DAILY, (Reported) Diltiazem Hcl* (Cardizem*), 30 MG GT QID, (Reported) Docusate Sodium* (Colace*), 100 MG GT DAILY, (Reported) Ferrous Sulfate (Ferrous Sulfate), 330 MG GT DAILY, (Reported) Levetiracetam (Keppra), 5 ML GT EVERY 12 HOURS, (Reported) Levetiracetam* (Levetiracetam*), 500 MG GT BID, (Reported) Omeprazole (Omeprazole), 40 MG GT DAILY, (Reported) Omeprazole (Omeprazole), 40 MG GT DAILY, (Reported) Paroxetine Hcl* (Paxil*), 10 MG GT HS, (Reported) Protein Supplement (Promod), 946 ML GT DAILY, (Reported) Zinc (Zinc), 220 MG GT DAILY, (Reported) Scheduled PRN Acetaminophen 160MG/5ML* (Acetaminophen*), 20 ML GT Q4HR PRN for Mild Pain/Temp > 100.5, (Reported) Acetaminophen* (Acetaminophen 325MG Tablet*), 650 MG GT Q4H PRN for For Pain, ( Reported) Albuterol Sulfate* (Albuterol Sulfate Hhn*), 3 ML INH Q4H PRN for Shortness of Breath, (Reported) Bisacodyl (Dulcolax), 10 MG RC DAILY PRN for Constipation, (Reported) Diphenhydramine Hcl (Diphenhydramine Hcl), 25 MG ORAL HS PRN for Itching, ( Reported) Diphenhydramine Hcl* (Benadryl Allergy*), 25 MG GT Q6H PRN for Itching, ( Reported) Hydrocodone Bit/Acetaminophen 5-325* ([place] 5-325*), 1 TAB GT Q6H PRN for For Pain, (Reported) Magnesium Hydroxide* (Milk Of Magnesia*), 30 ML ORAL DAILY PRN for Constipation, (Reported) Na Phos,M-B/Na Phos,Di-Ba* (Fleet Enema*), 133 ML RECTAL for Constipation, ( Reported) Zolpidem Tartrate* (Ambien*), 5 MG ORAL BEDTIME PRN for Insomnia, (Reported) Miscellaneous Medications Multivits W-Min/Ferrous Gluc (Centrum Multivit-Mineral Liq), Unknown Dose PO, ( Reported) Vit C/Ascorbate Ca/Ascorb Sod (Vitamin C 500 Mg/15 Ml Liquid), 500 MG GT, ( Reported) Patient History Limited by: medical condition History Provided By: Patient, Medical Record, PMD Healthcare decision maker Resuscitation status Full Code Advanced Directive on File Yes Past Medical/Surgical History Past Medical/Surgical History: (1) Pneumonia (2) Healthcare-associated pneumonia Review of Systems Psychiatric: Reports: prior hx, anxiety, depressed feelings Physical Exam General Appearance: no apparent distress, alert, confused, agitated Last 24 Hour Vital Signs Date Time Temp Pulse Resp B/P (MAP) Pulse Ox O2 Delivery O2 Flow Rate FiO2 12/18/17 11:30 94 20 98 T-piece 6.0 12/18/17 11:19 80 20 96 T-piece 6.0 12/18/17 10:31 116/72 12/18/17 08:00 97.3 86 20 116/72 95 97.3 12/18/17 07:53 89 20 T-piece 6.0 12/18/17 07:53 89 20 98 T-piece 6.0 12/18/17 07:52 T-piece 6.0 12/18/17 07:44 82 20 96 T-piece 6.0 12/18/17 07:43 96 T-piece 6.0 12/18/17 07:07 86 116/72 3/28/18 04:00 97.7 98 19 110/70 98 T-piece 10.0 35 97.7 12/18/17 04:00 94 12/18/17 03:30 91 20 97 T-piece 6.0 12/18/17 03:30 84 20 95 T-piece 6.0 12/18/17 01:30 95 T-piece 6.0 12/18/17 01:30 T-piece 6.0 12/18/17 00:00 86 20 97 T-piece 6.0 12/18/17 00:00 92 20 98 T-piece 6.0 12/18/17 00:00 121 12/18/17 00:00 98.1 97 18 115/69 98 T-piece 10.0 35 98.1 12/17/17 20:00 94 20 99 T-piece 6.0 12/17/17 20:00 97.9 99 17 108/58 99 T-piece 10.0 35 97.9 12/17/17 20:00 96 12/17/17 20:00 90 20 T-piece 6.0 12/17/17 19:30 90 20 97 T-piece 6.0 12/17/17 19:30 98 T-piece 6.0 12/17/17 19:30 28 12/17/17 19:30 T-piece 6.0 12/17/17 17:48 98 113/70 12/17/17 16:00 101 12/17/17 16:00 97.9 98 20 113/70 98 T-piece 10.0 35 97.9 12/17/17 15:52 101 18 98 T-piece 35 12/17/17 15:49 96 18 98 T-piece 10.0 35 12/17/17 15:48 35 12/17/17 13:43 104 115/79 Intake and Output 12/17/17 12/18/17 19:00 07:00 Intake Total 100 ml 824.334 ml Balance 100 ml 824.334 ml Intake IV Total 100 ml 824.334 ml # Voids 4 # Bowel Movements 1 Laboratory Tests Test 12/18/17 06:50 White Blood Count 7.7 K/UL (4.8-10.8) Red Blood Count 3.76 M/UL (4.70-6.10) L Hemoglobin 11.7 G/DL (14.2-18.0) L Hematocrit 33.7 % (42.0-52.0) L Mean Corpuscular Volume 89 FL (80-99) Mean Corpuscular Hemoglobin 31.1 PG (27.0-31.0) H Mean Corpuscular Hemoglobin Concent 34.8 G/DL (32.0-36.0) Red Cell Distribution Width 11.6 % (11.6-14.8) Platelet Count 145 K/UL (150-450) L Mean Platelet Volume 7.8 FL (6.5-10.1) Neutrophils (%) (Auto) % (45.0-75.0) Lymphocytes (%) (Auto) % (20.0-45.0) Monocytes (%) (Auto) % (1.0-10.0) Eosinophils (%) (Auto) % (0.0-3.0) Basophils (%) (Auto) % (0.0-2.0) Differential Total Cells Counted 100 Neutrophils % (Manual) 37 % (45-75) L Lymphocytes % (Manual) 29 % (20-45) Monocytes % (Manual) 29 % (1-10) H Eosinophils % (Manual) 5 % (0-3) H Basophils % (Manual) 0 % (0-2) Band Neutrophils 0 % (0-8) Platelet Estimate Adequate Platelet Morphology Normal Hypochromasia 1+ Sodium Level 142 MMOL/L (136-145) Potassium Level 4.3 MMOL/L (3.5-5.1) Chloride Level 105 MMOL/L (98-107) Carbon Dioxide Level 28 MMOL/L (21-32) Anion Gap 9 mmol/L (5-15) Blood Urea Nitrogen 11 mg/dL (7-18) Creatinine 0.7 MG/DL (0.55-1.30) Estimat Glomerular Filtration Rate > 60 mL/min (>60) Glucose Level 156 MG/DL (74-106) H Calcium Level 8.6 MG/DL (8.5-10.1) Total Bilirubin 0.5 MG/DL (0.2-1.0) Aspartate Amino Transf (AST/SGOT) 54 U/L (15-37) H Alanine Aminotransferase (ALT/SGPT) 50 U/L (12-78) Alkaline Phosphatase 80 U/L (46-116) Total Creatine Kinase 159 U/L (26-308) Pro-B-Type Natriuretic Peptide 106 pg/mL (0-125) Total Protein 7.3 G/DL (6.4-8.2) Albumin 3.1 G/DL (3.4-5.0) L Globulin 4.2 g/dL Albumin/Globulin Ratio 0.7 (1.0-2.7) L Triglycerides Level 46 MG/DL (30-150) Cholesterol Level 77 MG/DL (< 200) LDL Cholesterol 39 mg/dL (<100) HDL Cholesterol 35 MG/DL (40-60) L Cholesterol/HDL Ratio 2.2 (3.3-4.4) L Height (Feet): 6 Height (Inches): 1.00 Weight (Pounds): 178 Medications Current Medications Medications (Trade) Dose Ordered Sig/Oral Route PRN Reason Start Time Stop Time Status Last Admin Dose Admin Albuterol/ Ipratropium (Albuterol/ Ipratropium) 3 ml Q4HRT HHN 12/17/17 07:00 12/22/17 06:59 12/18/17 11:21 Ascorbic Acid (Vitamin C) 500 mg DAILY GT 12/17/17 09:00 01/16/18 08:59 12/18/17 10:30 Aspirin (ASA) 81 mg DAILY GT 12/17/17 09:00 01/16/18 08:59 12/17/17 09:52 Atorvastatin Calcium (Lipitor) 80 mg BEDTIME GT 12/17/17 21:00 01/16/18 20:59 12/17/17 21:54 Benazepril HCl (Lotensin) 20 mg DAILY GT 12/18/17 09:00 01/17/18 08:59 12/18/17 10:31 Bisacodyl (Dulcolax) 10 mg DAILYPRN PRN RECTAL Constipation 12/17/17 03:15 01/16/18 03:14 Diltiazem HCl (Cardizem) 60 mg Q8HR GT 12/18/17 06:00 01/17/18 05:59 12/18/17 07:07 Diphenhydramine HCl (Benadryl) 25 mg HSPRN PRN NG Itching 12/17/17 03:15 01/16/18 03:14 12/17/17 23:55 Docusate Sodium (Colace) 100 mg DAILY ORAL 12/17/17 09:00 01/16/18 08:59 12/17/17 09:52 Ferrous Sulfate (Feosol) 300 mg DAILY GT 12/17/17 09:00 01/16/18 08:59 12/18/17 10:30 Heparin Sodium (Porcine) (Heparin 5000 units/ml) 5,000 units EVERY 12 HOURS SUBQ 12/17/17 21:00 01/16/18 20:59 12/17/17 21:57 Levetiracetam (Keppra) 500 mg Q12HR GT 12/17/17 09:00 01/16/18 08:59 12/18/17 10:31 Magnesium Hydroxide (Mom) 30 ml DAILYPRN PRN ORAL Constipation 12/17/17 03:15 01/16/18 03:14 Multivitamins (Multivitamins W/ Minerals 15ml Liquid) 15 ml DAILY GT 12/17/17 09:00 01/16/18 08:59 12/18/17 10:32 Piperacillin Sod/ Tazobactam Sod 3.375 gm/Dextrose 110 ml @ 27.5 mls/hr Q8H IVPB 12/17/17 08:00 12/24/17 07:59 12/18/17 10:38 Quetiapine Fumarate (SEROquel) 25 mg TID ORAL 12/18/17 13:00 01/17/18 12:59 Quetiapine Fumarate (SEROquel) 50 mg Q4H PRN ORAL Agitation 12/18/17 11:30 01/17/18 11:29 12/18/17 11:50 Sodium Chloride 1,000 ml @ 75 mls/hr [id number] IV 12/18/17 03:15 01/17/18 03:14 12/18/17 03:45 Sodium Phosphate (Fleet's Sodium Phosl Enema) 133 ml DAILYPRN PRN RECTAL Constipation 12/17/17 03:15 01/16/18 03:14 Vancomycin HCl (Vanco rx to dose) 1 ea DAILY PRN MISC Per rx protocol 12/17/17 03:15 01/16/18 03:14 Vancomycin HCl/ Dextrose 250 ml @ 166.667 mls/hr Q12H IVPB 12/17/17 16:00 12/22/17 15:59 12/18/17 04:31 Assessment/Plan Status: unchanged Assessment/Plan encephalopathy agitation -seroquel standing and prn -provided Filemon Smart M.D. Dec 18, 2017 12:13
--- NOTE | 2017-12-18 12:14 | General Progress Note ---
Assessment/Plan Status: progressing Assessment/Plan encephalopathy seroquel prn standing dc sitter Subjective Date patient seen: Dec 18, 2017 Neurologic/Psychiatric: Reports: anxiety, emotional problems Allergies: Coded Allergies: No Known Allergies (Unverified , 01/04/17) Objective Last 24 Hour Vital Signs Date Time Temp Pulse Resp B/P (MAP) Pulse Ox O2 Delivery O2 Flow Rate FiO2 12/18/17 11:30 94 20 98 T-piece 6.0 12/18/17 11:19 80 20 96 T-piece 6.0 12/18/17 10:31 116/72 12/18/17 08:00 97.3 86 20 116/72 95 97.3 12/18/17 07:53 89 20 T-piece 6.0 12/18/17 07:53 89 20 98 T-piece 6.0 12/18/17 07:52 T-piece 6.0 12/18/17 07:44 82 20 96 T-piece 6.0 12/18/17 07:43 96 T-piece 6.0 12/18/17 07:07 86 116/72 12/18/17 04:00 97.7 98 19 110/70 98 T-piece 10.0 35 97.7 12/18/17 04:00 94 12/18/17 03:30 91 20 97 T-piece 6.0 12/18/17 03:30 84 20 95 T-piece 6.0 12/18/17 01:30 95 T-piece 6.0 12/18/17 01:30 T-piece 6.0 12/18/17 00:00 86 20 97 T-piece 6.0 12/18/17 00:00 92 20 98 T-piece 6.0 12/18/17 00:00 121 12/18/17 00:00 98.1 97 18 115/69 98 T-piece 10.0 35 98.1 12/17/17 20:00 94 20 99 T-piece 6.0 12/17/17 20:00 97.9 99 17 108/58 99 T-piece 10.0 35 97.9 12/17/17 20:00 96 12/17/17 20:00 90 20 T-piece 6.0 12/17/17 19:30 90 20 97 T-piece 6.0 28 12/17/17 19:30 98 T-piece 6.0 28 12/17/17 19:30 28 12/17/17 19:30 T-piece 6.0 28 12/17/17 17:48 98 113/70 12/17/17 16:00 101 12/17/17 16:00 97.9 98 20 113/70 98 T-piece 10.0 35 97.9 12/17/17 15:52 101 18 98 T-piece 35 12/17/17 15:49 96 18 98 T-piece 10.0 35 12/17/17 15:48 35 12/17/17 13:43 104 115/79 Intake and Output 12/17/17 12/18/17 19:00 07:00 Intake Total 100 ml 824.334 ml Balance 100 ml 824.334 ml Intake IV Total 100 ml 824.334 ml # Voids 4 # Bowel Movements 1 Laboratory Tests 12/18/17 06:50: White Blood Count 7.7, Red Blood Count 3.76L, Hemoglobin 11.7L, Hematocrit 33.7L , Mean Corpuscular Volume 89, Mean Corpuscular Hemoglobin 31.1H, Mean Corpuscular Hemoglobin Concent 34.8, Red Cell Distribution Width 11.6, Platelet Count 145L, Mean Platelet Volume 7.8, Neutrophils (%) (Auto) , Lymphocytes (%) ( Auto) , Monocytes (%) (Auto) , Eosinophils (%) (Auto) , Basophils (%) (Auto) , Differential Total Cells Counted 100, Neutrophils % (Manual) 37L, Lymphocytes % (Manual) 29, Monocytes % (Manual) 29H, Eosinophils % (Manual) 5H, Basophils % ( Manual) 0, Band Neutrophils 0, Platelet Estimate Adequate, Platelet Morphology Normal, Hypochromasia 1+, Sodium Level 142, Potassium Level 4.3, Chloride Level 105, Carbon Dioxide Level 28, Anion Gap 9, Blood Urea Nitrogen 11, Creatinine 0.7, Estimat Glomerular Filtration Rate > 60, Glucose Level 156H, Calcium Level 8.6, Total Bilirubin 0.5, Aspartate Amino Transf (AST/SGOT) 54H, Alanine Aminotransferase (ALT/SGPT) 50, Alkaline Phosphatase 80, Total Creatine Kinase 159, Pro-B-Type Natriuretic Peptide 106, Total Protein 7.3, Albumin 3.1L, Globulin 4.2, Albumin/Globulin Ratio 0.7L, Triglycerides Level 46, Cholesterol Level 77, LDL Cholesterol 39, HDL Cholesterol 35L, Cholesterol/HDL Ratio 2.2L Height (Feet): 6 Height (Inches): 1.00 Weight (Pounds): 178 General Appearance: no apparent distress, alert, confused, agitated Filemon Nassar M.D. Dec 18, 2017 12:14
[2017-12-18 16:00] VITALS: BP 108/68
[2017-12-18] MEDS ORDERED: Piperacillin/Tazobactam 3.375 GM in D5W 110 ML IVPB SCH ×4 (18:00)
[2017-12-18 20:00] VITALS: BP 128/77
[2017-12-18] MEDS: DiphenhydrAMINE 25mg/10ml Elixir NG PRN (20:23)
[2017-12-18] MEDS: Atorvastatin 80mg tab GT SCH (20:23)
[2017-12-19] VITALS: BP 109/69
[2017-12-19] MEDS: Albuterol/Ipratropium 3ml neb HHN SCH ×7 (00:15→23:13)
[2017-12-19] MEDS: Piperacillin/Tazobactam 3.375 GM in D5W 110 ML IVPB SCH ×5 (00:26→23:28)
[2017-12-19] MEDS: Vancomycin 1gm in D5W 275ml IVPB SCH ×2 (04:25→15:34)
[2017-12-19] MEDS: dilTIAZem HCl 30mg tab GT SCH ×3 (06:46→21:30)
[2017-12-19 08:00] VITALS: BP 120/73
--- NOTE | 2017-12-19 08:00 | Pulmonology Progress Note ---
Assessment/Plan Assessment/Plan respiratory failure trach GT CVA focal weakness pneumonia- GNR PLAN respiratory care oxygen iv antibiotics- cefepime check culture-sensitivity dc to snf Subjective Allergies: Coded Allergies: No Known Allergies (Unverified , 01/04/17) Subjective care noted and reviewed on trach collar no distress Objective Last 24 Hour Vital Signs Date Time Temp Pulse Resp B/P (MAP) Pulse Ox O2 Delivery O2 Flow Rate FiO2 12/19/17 07:31 T-piece 6.0 12/19/17 07:28 28 12/19/17 07:28 96 6.0 12/19/17 07:28 80 20 96 T-piece 6.0 12/19/17 06:46 90 109/69 12/19/17 04:00 90 12/19/17 03:12 12/19/17 03:12 89 20 98 T-piece 6.0 12/19/17 03:03 96 T-piece 6.0 12/19/17 03:03 90 20 96 T-piece 6.0 12/19/17 00:27 12/19/17 00:27 89 20 99 T-piece 6.0 12/19/17 00:26 T-piece 6.0 12/19/17 00:15 81 20 97 T-piece 6.0 12/19/17 00:00 103 12/19/17 00:00 97.7 107 24 109/69 97 T-piece 10.0 35 97.7 12/18/17 22:27 135 128/77 12/18/17 20:00 91 12/18/17 20:00 98.0 103 20 128/77 100 T-piece 10.0 35 98.0 12/18/17 19:38 93 20 99 T-piece 6.0 12/18/17 19:38 28 12/18/17 19:29 T-piece 6.0 12/18/17 19:29 98 T-piece 6.0 12/18/17 19:28 80 20 98 T-piece 6.0 12/18/17 16:00 80 12/18/17 16:00 97.5 96 18 108/68 95 T-piece 10.0 35 97.5 12/18/17 15:40 90 20 98 T-piece 6.0 12/18/17 15:25 84 20 98 T-piece 6.0 28 12/18/17 13:09 T-piece 6.0 28 12/18/17 13:08 97 T-piece 6.0 28 12/18/17 13:02 91 116/72 12/18/17 12:00 97.0 94 20 117/75 96 T-piece 10.0 35 97.0 12/18/17 12:00 101 12/18/17 11:30 94 20 98 T-piece 6.0 28 12/18/17 11:19 80 20 96 T-piece 6.0 28 12/18/17 10:31 116/72 12/18/17 08:00 119 12/18/17 08:00 97.3 86 20 116/72 95 97.3 Intake and Output 12/18/17 12/19/17 19:00 07:00 # Voids 1 1 Objective WDWN NAD reduced breath sounds bilaterally with some rhonchi [id number] without MRG NABS nontender no HSM no CCE focal weakness Microbiology Date/Time Source Procedure Growth Status 12/16/17 20:35 Blood Blood Culture - Preliminary NO GROWTH AFTER 48 HOURS Resulted 12/16/17 20:20 Blood Blood Culture - Preliminary NO GROWTH AFTER 48 HOURS Resulted 12/16/17 20:55 Sputum Gram Stain - Final Resulted 12/16/17 20:55 Sputum Culture - Preliminary Gram Negative Bacillus 2 Resulted 12/16/17 20:55 Nasal Nares Influenza Types A,B Antigen (BLAKE) - Final Complete Laboratory Tests 12/18/17 15:40: Vancomycin Level Trough 17.2H Current Medications Medications (Trade) Dose Ordered Sig/Oral Route PRN Reason Start Time Stop Time Status Last Admin Dose Admin Albuterol/ Ipratropium (Albuterol/ Ipratropium) 3 ml Q4HRT HHN 12/17/17 07:00 12/22/17 06:59 12/19/17 07:24 Ascorbic Acid (Vitamin C) 500 mg DAILY GT 12/17/17 09:00 01/16/18 08:59 12/18/17 10:30 Aspirin (ASA) 81 mg DAILY GT 12/17/17 09:00 01/16/18 08:59 12/17/17 09:52 Atorvastatin Calcium (Lipitor) 80 mg BEDTIME GT 12/17/17 21:00 01/16/18 20:59 12/18/17 20:23 Benazepril HCl (Lotensin) 20 mg DAILY GT 12/18/17 09:00 01/17/18 08:59 12/18/17 10:31 Bisacodyl (Dulcolax) 10 mg DAILYPRN PRN RECTAL Constipation 12/17/17 03:15 01/16/18 03:14 Diltiazem HCl (Cardizem) 60 mg Q8HR GT 12/18/17 06:00 01/17/18 05:59 12/19/17 06:46 Diphenhydramine HCl (Benadryl) 25 mg HSPRN PRN NG Itching 12/17/17 03:15 01/16/18 03:14 12/18/17 20:23 Docusate Sodium (Colace) 100 mg DAILY ORAL 12/17/17 09:00 01/16/18 08:59 12/17/17 09:52 Ferrous Sulfate (Feosol) 300 mg DAILY GT 12/17/17 09:00 01/16/18 08:59 12/18/17 10:30 Heparin Sodium (Porcine) (Heparin 5000 units/ml) 5,000 units EVERY 12 HOURS SUBQ 12/17/17 21:00 01/16/18 20:59 12/18/17 20:26 Levetiracetam (Keppra) 500 mg Q12HR GT 12/17/17 09:00 01/16/18 08:59 12/18/17 20:23 Magnesium Hydroxide (Mom) 30 ml DAILYPRN PRN ORAL Constipation 12/17/17 03:15 01/16/18 03:14 Multivitamins (Multivitamins W/ Minerals 15ml Liquid) 15 ml DAILY GT 12/17/17 09:00 01/16/18 08:59 12/18/17 10:32 Piperacillin Sod/ Tazobactam Sod 3.375 gm/Dextrose 110 ml @ 220 mls/hr Q6H IVPB 12/18/17 18:00 12/25/17 17:59 12/19/17 06:44 Quetiapine Fumarate (SEROquel) 25 mg TID ORAL 12/18/17 13:00 01/17/18 12:59 12/18/17 17:06 Quetiapine Fumarate (SEROquel) 50 mg Q4H PRN ORAL Agitation 12/18/17 11:30 01/17/18 11:29 12/19/17 04:16 Sodium Chloride 1,000 ml @ 75 mls/hr [id number] IV 12/18/17 03:15 01/17/18 03:14 12/18/17 16:40 Sodium Phosphate (Fleet's Sodium Phosl Enema) 133 ml DAILYPRN PRN RECTAL Constipation 12/17/17 03:15 01/16/18 03:14 Vancomycin HCl (Vanco rx to dose) 1 ea DAILY PRN MISC Per rx protocol 12/17/17 03:15 01/16/18 03:14 Vancomycin HCl 1 gm/Dextrose 275 ml @ 183.708 mls/hr Q12H IVPB 12/19/17 04:00 12/24/17 03:59 12/19/17 04:25 CYNTHIA PERDOMO Dec 19, 2017 08:00
[2017-12-19] MEDS: Heparin 5000 units/ml inj SUBQ SCH ×2 (08:54→21:00)
[2017-12-19] MEDS: Docusate 100mg cap ORAL SCH (08:56)
[2017-12-19] MEDS: Aspirin Baby 81mg GT SCH (09:00)
[2017-12-19] MEDS: Ascorbic Acid 500mg tab GT SCH (09:18)
[2017-12-19] MEDS: Benazepril 10mg tab GT SCH (09:18)
[2017-12-19] MEDS: Ferrous Sulfate 300 MG/5 ML UDC GT SCH (09:18)
[2017-12-19] MEDS: Multivitamins W/Minerals 15 ML UDC GT SCH (09:19)
[2017-12-19] MEDS: levETIRAcetam 500mg/5ml Liquid GT SCH ×2 (09:23→21:31)
[2017-12-19 12:00] VITALS: BP 112/57
--- NOTE | 2017-12-19 13:15 | General Progress Note ---
Assessment/Plan Status: stable Assessment/Plan encephalopathy seroquel prn standing dc sitter Subjective Date patient seen: Dec 19, 2017 Allergies: Coded Allergies: No Known Allergies (Unverified , 01/04/17) Subjective the pt is non verbal calm no agitation. manageable without sitter Objective Last 24 Hour Vital Signs Date Time Temp Pulse Resp B/P (MAP) Pulse Ox O2 Delivery O2 Flow Rate FiO2 12/19/17 13:01 T-piece 6.0 12/19/17 13:01 95 T-piece 6.0 12/19/17 12:00 112 12/19/17 12:00 98.0 111 22 112/57 96 T-piece 10.0 35 98.0 12/19/17 11:12 102 20 99 T-piece 6.0 12/19/17 11:02 28 12/19/17 11:02 94 20 97 T-piece 6.0 12/19/17 09:18 120/69 12/19/17 08:00 88 12/19/17 08:00 97.2 89 21 120/73 97 T-piece 10.0 35 97.2 12/19/17 07:39 85 20 99 T-piece 6.0 12/19/17 07:31 T-piece 6.0 12/19/17 07:28 28 12/19/17 07:28 96 6.0 12/19/17 07:28 80 20 96 T-piece 6.0 12/19/17 06:46 90 109/69 12/19/17 04:00 90 12/19/17 03:12 12/19/17 03:12 89 20 98 T-piece 6.0 12/19/17 03:03 96 T-piece 6.0 12/19/17 03:03 90 20 96 T-piece 6.0 12/19/17 00:27 28 12/19/17 00:27 89 20 99 T-piece 6.0 12/19/17 00:26 T-piece 6.0 12/19/17 00:15 81 20 97 T-piece 6.0 12/19/17 00:00 103 12/19/17 00:00 97.7 107 24 109/69 97 T-piece 10.0 35 97.7 12/18/17 22:27 135 128/77 12/18/17 20:00 91 12/18/17 20:00 98.0 103 20 128/77 100 T-piece 10.0 35 98.0 12/18/17 19:38 93 20 99 T-piece 6.0 28 12/18/17 19:38 28 12/18/17 19:29 T-piece 6.0 28 12/18/17 19:29 98 T-piece 6.0 28 12/18/17 19:28 80 20 98 T-piece 6.0 28 12/18/17 16:00 80 12/18/17 16:00 97.5 96 18 108/68 95 T-piece 10.0 35 97.5 12/18/17 15:40 90 20 98 T-piece 6.0 12/18/17 15:25 84 20 98 T-piece 6.0 28 Intake and Output 12/18/17 12/19/17 19:00 07:00 # Voids 1 1 Laboratory Tests 12/18/17 15:40: Vancomycin Level Trough 17.2H Height (Feet): 6 Height (Inches): 1.00 Weight (Pounds): 178 General Appearance: no apparent distress, lethargic Filemon Nassar M.D. Dec 19, 2017 13:15
[2017-12-19] MEDS ORDERED: ZOSYN 3.373.375 GM/1 IVPB (13:58)
[2017-12-19 16:00] VITALS: BP 120/80
[2017-12-19 20:00] VITALS: BP_SYST 124; BP_DIAS 71; BP_DIAS 72
[2017-12-19] MEDS: Atorvastatin 80mg tab GT SCH (21:31)
[2017-12-20] VITALS: BP 120/70
[2017-12-20] MEDS: Albuterol/Ipratropium 3ml neb HHN SCH ×3 (02:06→11:49)
[2017-12-20 04:00] VITALS: BP 121/77
[2017-12-20] MEDS: Vancomycin 1gm in D5W 275ml IVPB SCH (04:12)
[2017-12-20] MEDS: Piperacillin/Tazobactam 3.375 GM in D5W 110 ML IVPB SCH ×2 (05:51→12:18)
[2017-12-20] MEDS: dilTIAZem HCl 30mg tab GT SCH ×2 (05:51→14:00)
[2017-12-20 08:00] VITALS: BP 121/81
--- NOTE | 2017-12-20 08:45 | Pulmonology Progress Note ---
Assessment/Plan Assessment/Plan respiratory failure trach GT CVA focal weakness pneumonia- GNR PLAN respiratory care oxygen iv antibiotics- cefepime adequate check culture-sensitivity dc to snf in am Subjective ROS Limited/Unobtainable: Yes Allergies: Coded Allergies: No Known Allergies (Unverified , 01/04/17) Subjective care noted and reviewed on trach collar no distress Objective Last 24 Hour Vital Signs Date Time Temp Pulse Resp B/P (MAP) Pulse Ox O2 Delivery O2 Flow Rate FiO2 12/20/17 05:51 106 121/77 12/20/17 04:00 111 12/20/17 04:00 98.6 106 20 121/77 100 T-piece 10.0 28 98.6 12/20/17 02:13 112 20 98 T-piece 6.0 28 12/20/17 02:05 110 22 95 T-piece 6.0 28 12/20/17 02:05 28 12/20/17 01:19 98 T-piece 6.0 28 12/20/17 01:19 T-piece 8.0 30 12/20/17 00:00 119 12/20/17 00:00 99.5 120 22 120/70 99 T-piece 10.0 35 99.5 12/19/17 23:23 118 22 96 T-piece 6.0 12/19/17 23:13 28 12/19/17 23:13 114 22 94 T-piece 6.0 12/19/17 21:30 108 124/72 12/19/17 20:00 106 12/19/17 20:00 102.0 108 20 124/71 96 T-piece 10.0 35 102.0 12/19/17 20:00 97.7 108 20 124/72 98 T-piece 10.0 35 97.7 12/19/17 19:59 109 22 99 T-piece 6.0 12/19/17 19:52 T-piece 6.0 12/19/17 19:52 96 T-piece 6.0 12/19/17 19:51 28 12/19/17 19:51 108 22 96 T-piece 6.0 12/19/17 16:00 97.6 103 20 120/80 96 T-piece 10.0 35 97.6 12/19/17 16:00 111 12/19/17 15:15 103 20 99 T-piece 6.0 12/19/17 14:59 103 20 94 T-piece 6.0 12/19/17 14:59 28 12/19/17 13:21 112 112/57 12/19/17 13:01 T-piece 6.0 12/19/17 13:01 95 T-piece 6.0 28 12/19/17 12:00 112 12/19/17 12:00 98.0 111 22 112/57 96 T-piece 10.0 35 98.0 12/19/17 11:12 102 20 99 T-piece 6.0 12/19/17 11:02 28 12/19/17 11:02 94 20 97 T-piece 6.0 12/19/17 09:18 120/69 Intake and Output 12/19/17 12/20/17 19:00 07:00 Output Total 250 ml Balance -250 ml Output Urine Total 250 ml # Voids 5 5 # Bowel Movements 2 Objective WDWN NAD reduced breath sounds bilaterally with some rhonchi [id number] without MRG NABS nontender no HSM no CCE focal weakness Microbiology Date/Time Source Procedure Growth Status 12/17/17 21:00 Nose MRSA Culture - Final NO METHICILLIN RESISTANT STAPH AUREUS... Complete 12/17/17 21:00 Rectum VRE Culture - Final NO VANCOMYCIN RESISTANT ENTEROCOCCUS ... Complete Current Medications Medications (Trade) Dose Ordered Sig/Oral Route PRN Reason Start Time Stop Time Status Last Admin Dose Admin Albuterol/ Ipratropium (Albuterol/ Ipratropium) 3 ml Q4HRT HHN 12/17/17 07:00 12/22/17 06:59 12/20/17 02:06 Ascorbic Acid (Vitamin C) 500 mg DAILY GT 12/17/17 09:00 01/16/18 08:59 12/19/17 09:18 Aspirin (ASA) 81 mg DAILY GT 12/17/17 09:00 01/16/18 08:59 12/17/17 09:52 Atorvastatin Calcium (Lipitor) 80 mg BEDTIME GT 12/17/17 21:00 01/16/18 20:59 12/19/17 21:31 Benazepril HCl (Lotensin) 20 mg DAILY GT 12/18/17 09:00 01/17/18 08:59 12/19/17 09:18 Bisacodyl (Dulcolax) 10 mg DAILYPRN PRN RECTAL Constipation 12/17/17 03:15 01/16/18 03:14 Diltiazem HCl (Cardizem) 60 mg Q8HR GT 12/18/17 06:00 01/17/18 05:59 12/19/17 21:30 Diphenhydramine HCl (Benadryl) 25 mg HSPRN PRN NG Itching 12/17/17 03:15 01/16/18 03:14 12/18/17 20:23 Docusate Sodium (Colace) 100 mg DAILY ORAL 12/17/17 09:00 01/16/18 08:59 12/17/17 09:52 Ferrous Sulfate (Feosol) 300 mg DAILY GT 12/17/17 09:00 01/16/18 08:59 12/19/17 09:18 Heparin Sodium (Porcine) (Heparin 5000 units/ml) 5,000 units EVERY 12 HOURS SUBQ 12/17/17 21:00 01/16/18 20:59 12/18/17 20:26 Levetiracetam (Keppra) 500 mg Q12HR GT 12/17/17 09:00 01/16/18 08:59 12/19/17 21:31 Magnesium Hydroxide (Mom) 30 ml DAILYPRN PRN ORAL Constipation 12/17/17 03:15 01/16/18 03:14 Multivitamins (Multivitamins W/ Minerals 15ml Liquid) 15 ml DAILY GT 12/17/17 09:00 01/16/18 08:59 12/19/17 09:19 Piperacillin Sod/ Tazobactam Sod 3.375 gm/Dextrose 110 ml @ 220 mls/hr Q6H IVPB 12/18/17 18:00 12/25/17 17:59 12/20/17 05:51 Quetiapine Fumarate (SEROquel) 25 mg TID ORAL 12/18/17 13:00 01/17/18 12:59 12/19/17 13:21 Quetiapine Fumarate (SEROquel) 50 mg Q4H PRN ORAL Agitation 12/18/17 11:30 01/17/18 11:29 12/19/17 17:21 Sodium Phosphate (Fleet's Sodium Phosl Enema) 133 ml DAILYPRN PRN RECTAL Constipation 12/17/17 03:15 01/16/18 03:14 Vancomycin HCl (Vanco rx to dose) 1 ea DAILY PRN MISC Per rx protocol 12/17/17 03:15 01/16/18 03:14 Vancomycin HCl 1 gm/Dextrose 275 ml @ 183.708 mls/hr Q12H IVPB 12/19/17 04:00 12/24/17 03:59 12/20/17 04:12 CYNTHIA PERDOMO Dec 20, 2017 08:45
[2017-12-20] MEDS: Aspirin Baby 81mg GT SCH (08:53)
[2017-12-20] MEDS: Ascorbic Acid 500mg tab GT SCH (08:54)
[2017-12-20] MEDS: Docusate 100mg cap ORAL SCH (08:54)
[2017-12-20] MEDS: Multivitamins W/Minerals 15 ML UDC GT SCH (08:55)
[2017-12-20] MEDS: Benazepril 10mg tab GT SCH (08:55)
[2017-12-20] MEDS: Ferrous Sulfate 300 MG/5 ML UDC GT SCH (08:55)
[2017-12-20] MEDS: levETIRAcetam 500mg/5ml Liquid GT SCH (08:56)
[2017-12-20] MEDS: Heparin 5000 units/ml inj SUBQ SCH (08:58)
[2017-12-20] MEDS ORDERED: Tubing IV Secondary IV ONE (09:42)
[2017-12-20] MEDS ORDERED: NS 275ml ONE (09:42)
[2017-12-20] MEDS ORDERED: Sterile Water Irrig 1000ml IRRIG ONE (09:42)
[2017-12-20] MEDS ORDERED: Milk of Magnesia 30ml Ud GT PRN (11:30)
[2017-12-20 12:00] VITALS: BP 105/61
[2017-12-20 14:00] VITALS: BP 105/61
--- NOTE | 2017-12-20 15:21 | General Progress Note ---
Assessment/Plan Assessment/Plan encephalopathy seroquel prn standing dc sitter Subjective Date patient seen: Dec 20, 2017 Allergies: Coded Allergies: No Known Allergies (Unverified , 01/04/17) Subjective the pt is non verbal calm no agitation. Objective Last 24 Hour Vital Signs Date Time Temp Pulse Resp B/P (MAP) Pulse Ox O2 Delivery O2 Flow Rate FiO2 12/20/17 14:00 91 105/61 12/20/17 13:32 T-piece 6.0 28 12/20/17 13:32 98 T-piece 6.0 28 12/20/17 12:00 91 12/20/17 12:00 98.2 98 20 105/61 95 T-piece 10.0 28 98.2 12/20/17 11:53 108 20 98 T-piece 6.0 12/20/17 11:51 28 12/20/17 11:51 103 22 97 T-piece 6.0 28 12/20/17 10:01 T-piece 6.0 28 12/20/17 10:00 97 T-piece 6.0 12/20/17 10:00 T-piece 6.0 12/20/17 09:59 T-piece 6.0 12/20/17 09:57 102 22 97 T-piece 6.0 12/20/17 09:56 102 22 95 T-piece 6.0 12/20/17 08:55 121/81 12/20/17 08:00 99.7 102 20 121/81 96 T-piece 10.0 28 99.7 12/20/17 08:00 101 12/20/17 05:51 106 121/77 12/20/17 04:00 111 12/20/17 04:00 98.6 106 20 121/77 100 T-piece 10.0 28 98.6 12/20/17 02:13 112 20 98 T-piece 6.0 12/20/17 02:05 110 22 95 T-piece 6.0 12/20/17 02:05 28 12/20/17 01:19 98 T-piece 6.0 28 12/20/17 01:19 T-piece 8.0 30 12/20/17 00:00 119 12/20/17 00:00 99.5 120 22 120/70 99 T-piece 10.0 35 99.5 3/29/18 23:23 118 22 96 T-piece 6.0 28 12/19/17 23:13 28 12/19/17 23:13 114 22 94 T-piece 6.0 12/19/17 21:30 108 124/72 12/19/17 20:00 106 12/19/17 20:00 102.0 108 20 124/71 96 T-piece 10.0 35 102.0 12/19/17 20:00 97.7 108 20 124/72 98 T-piece 10.0 35 97.7 12/19/17 19:59 109 22 99 T-piece 6.0 12/19/17 19:52 T-piece 6.0 12/19/17 19:52 96 T-piece 6.0 12/19/17 19:51 28 12/19/17 19:51 108 22 96 T-piece 6.0 12/19/17 16:00 97.6 103 20 120/80 96 T-piece 10.0 35 97.6 12/19/17 16:00 111 Intake and Output 12/19/17 12/20/17 19:00 07:00 Intake Total 260 ml Output Total 250 ml Balance 10 ml Intake Free Water 200 ml Tube Feeding 60 ml Output Urine Total 250 ml # Voids 5 5 # Bowel Movements 2 Height (Feet): 6 Height (Inches): 1.00 Weight (Pounds): 178 Filemon Nassar M.D. Dec 20, 2017 15:21
--- NOTE | 2017-12-21 02:00 | Progress Note ---
DATE: 12/19/2017 CARDIOLOGY PROGRESS NOTE SUBJECTIVE: The patient without any distress. Remains on trach collar. Blood pressure parameters stable. He is off amlodipine. OBJECTIVE: LUNGS: Coarse breath sounds. Thin trach secretions. Few rhonchi. HEART: Regular rhythm and rate. Normal S1 and S2. ABDOMEN: Soft. G-tube intact. EXTREMITIES: No edema. IMPRESSION: 1. Recovering Healthcare-acquired pneumonia. 2. Respiratory failure with tracheostomy. 3. Dysphagia with gastrostomy tube. 4. Paroxysmal atrial ectopy. 5. 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 6. Asymptomatic sinus bradycardia. PLAN: 1. Stable from cardiovascular standpoint on current regimen. 2. No indication for further diagnostic studies at this time. Hari Pagan M.D. DR: Niecy JOB#: [id number] CC:
--- NOTE | 2017-12-21 02:15 | Progress Note ---
DATE: 12/20/2017 CARDIOLOGY PROGRESS NOTE SUBJECTIVE: Remained stable on trach collar. No respiratory distress. On intravenous antibiotics. OBJECTIVE: VITAL SIGNS: Blood pressure of 121/77, pulse 106, respirations 20, and afebrile. Temperature T-max 102. RESPIRATORY: Coarse breath sounds. Scattered rhonchi. HEART: Regular rhythm. Rapid rate. Normal S1, S2. ABDOMEN: Soft. EXTREMITIES: No edema. IMPRESSION: 1. Pneumonia. 2. Secondary sinus tachycardia. 3. Paroxysmal atrial ectopy. 4. Atherosclerotic cardiovascular disease. PLAN: 1. Continue antimicrobials. 2. Titrate diltiazem and benazepril for optimal blood pressure and heart rate control with suppression of atrial ectopy as well. 3. Maintain adequate hydration. 4. Nutrition by feeding tube. 5. Re-culture for fever spikes. 6. Consider further diagnostic cardiac testing if positive bacteremia. Hari Pagan M.D. DR: SUSANNA JOB#: [id number] CC:
--- NOTE | 2017-12-21 02:15 | Progress Note ---
DATE: 12/18/2017 CARDIOLOGY PROGRESS NOTE SUBJECTIVE: On trach collar. No new distress. Continues on antimicrobials. Monitored rhythm sinus, sinus bradycardia with bundle-branch block. OBJECTIVE: VITAL SIGNS: Blood pressure 116/72, heart rate 86, respiratory rate 19. No fevers. HEENT: Trach site with thin secretions. LUNGS: Coarse breath sounds. Few rhonchi. HEART: Regular rhythm. Slow rate. Normal S1, S2. ABDOMEN: Soft. EXTREMITIES: No edema. LABORATORY DATA: White count 7.7, hemoglobin 11.7. Potassium 4.3, BUN 11, creatinine 0.7. Natriuretic peptide 106. Albumin 3.1. LDL cholesterol is 39. IMPRESSION: 1. Healthcare-acquired pneumonia. 2. Respiratory failure. 3. Tracheostomy. 4. Atherosclerotic cardiovascular disease. 5. Stable angina. 6. Conduction system disease with bundle-branch block. 7. Sinus bradycardia, asymptomatic. 8. Paroxysmal atrial ectopy. PLAN: Off amlodipine. Titrate diltiazem and benazepril. Observe for symptomatic cristopher arrhythmias. Maintain adequate hydration. Continue low-dose statin therapy. Hari Pagan M.D. DR: Niecy JOB#: [id number] CC:
[2017-12-21] MEDS ORDERED: Docusate 100mg/10ml Liq GT SCH (09:00)
--- NOTE | 2017-12-21 12:33 | Discharge Summary ---
Discharge Summary Discharge Summary Discharge Summary DATE OF ADMISSION: 12/16/2017 DATE OF DISCHARGE: 12/20/2017 REASON FOR ADMISSION: 62 years old male with past medical history of CVA with right-sided weakness, tracheostomy, dysphagia, G-tube, history of craniotomy, hypertension, ventriculostomy, presented to emergency department for evaluation from the [facility]. Patient was sent for altered mental status, increased weakness, cough and increased sputum production; no nausea, no vomiting, no diarrhea. Patient with evidence of low-grade fever in emergency department. Chest x-ray revealed possible right lower lobe infiltrate. Patient apparently pulled on his tracheostomy several days ago and since that he had been more altered. Patient was admitted for further workup with diagnosis of healthcare associated pneumonia, toxic metabolic encephalopathy, history of CVA, seizure disorder and dehydration. HOSPITAL COURSE: Patient was admitted to telemetry floor. Pulmonology and cardiology consults were requested along with a psychiatric consult. Patient was started on empiric antibiotics. Sputum culture revealed Providencia and Streptococci group G. Blood cultures were negative. Influenza screen test was negative. Urinalysis was negative for evidence of UTI . Antibiotic regimen was optimized based on culture. First Sampler closely followed. Tracheostomy care provided along with the pulmonary toilet. Patient was suctioned as needed. Patient initially was with a low blood pressure. Clinical Nutritionist closely followed. Amlodipine was on hold, while Cardizem was continued for suppression of atrial ectopy. Lipid panel was stable. Statin and aspirin were continued. Seizure precautions were maintained, no seizure activity while in the hospital. Strict aspiration precautions were maintained, patient was able to tolerate tube feeding. Psychiatrist seen and evaluated the patient, diagnosed patient with encephalopathy and optimized psychiatric medication regimen. Patient clinically improved and was cleared by all consultants for discharge. FINAL DIAGNOSES: 1. Healthcare associated pneumonia 2. Toxic metabolic encephalopathy 3. History of CVA with right hemiplegia 4. Seizure disorder 5. Respiratory failure 6. Tracheostomy status 7. Dysphagia, G-tube 8. Conduction system disease with right bundle branch block 9. Atherosclerotic heart disease 10. Dehydration 11. Paroxysmal atrial ectopy 12. History of hypertension with current hypotension 13. Ischemic heart disease DISCHARGE MEDICATIONS: See Medication Reconciliation list. DISCHARGE INSTRUCTIONS: Patient was discharged to [facility], follow-up with medical doctor at the facility I have been assigned to dictate discharge summary for this account. I was not involved in the patient's management. Luis ([facility]),Atiya PRICE Dec 21, 2017 12:33
== END 2017-12-20 14:45 | DRG 139 ==
LOC: EDBD 20:10 → EMR 20:52 → EDBEDREQ 21:32 → 2E 21:48 → EDBEDREQ 22:35 → 2E 12-17 01:34
DX: J18.9 Pneumonia, unspecified organism (principal); J96.90 Respiratory failure, unspecified, unspecified whether with hypoxia or hypercapnia; G92 Toxic encephalopathy; Z43.0 Encounter for attention to tracheostomy; R13.10 Dysphagia, unspecified; I69.951 Hemiplegia and hemiparesis following unspecified cerebrovascular disease affecting right dominant side; Z43.1 Encounter for attention to gastrostomy; I25.5 Ischemic cardiomyopathy; I69.351 Hemiplegia and hemiparesis following cerebral infarction affecting right dominant side; G40.909 Epilepsy, unspecified, not intractable, without status epilepticus; I45.10 Unspecified right bundle-branch block; E86.0 Dehydration; I49.1 Atrial premature depolarization; I25.118 Atherosclerotic heart disease of native coronary artery with other forms of angina pectoris
CPT/HCPCS: 36415; 71045; 80053; 80061; 80202; 81003; 82550; 82553; 82962; 83605; 83880; 84484; 85007; 85025; 85610; 85730; 86710; 87040; 87070; 87081; 87181; 87205; 93005; 94640; 94664; 94760; 99285; J7620